=== PATIENT | female | born 1985 | race Caucasian/White ===

== ENCOUNTER 2018-04-25 03:44 | Emergency (ER) | payer MEDICAID, SELFPAY ==
[2018-04-25 03:53] VITALS: BP 151/82; PULSE 97; RESP 18; TEMP 36.4; O2SAT 99
[2018-04-25] MEDS: Prochlorperazine 10 MG/2 ML VIAL IVP (04:05)
--- NOTE | 2018-04-25 04:07 | ED.GENADUL_ITS ---
Disposition Clinical Impression: Abdominal pain Disposition: AGAINST MEDICAL ADVICE Condition: Stable Medical Decision Making - Medical Decision Making pt here with likely cyclic vomit vs cannabinoid hyperemesis, but will evaluate for acute pathology with lab work and imaging. while workup was trying to be done the patient decided she wanted to leave AMA. She was informed of risks of leaving without knowing exact cause of her symptoms and ruling out pathology. She has capacity to make her own decisions and understands risks of leaving including and becoming permanently disabled and would still like to leave. She was informed she can return if she changes her mind. She did not stay for any discharge paperwork - Differential Diagnosis cannabinoid hyperemesis, sbo, cyclic vomit History of Present Illness - General Chief complaint: Abd Prob Stated complaint: CALEX Time Seen by Provider: 04/25/18 03:58 Source: patient Mode of arrival: EMS Limitations: no limitations - History of Present Illness Initial comments: 32 yo female comes in with 1 day of general abdominal pain and n/v. 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 She has no specific area that she has pain. She has a soft non distended abodmen without guarding or rebound. Denies vaginal bleeding or d/c. MD Complaint: abd pain, n/v Onset/Timin -: days(s) Location: abdomen Radiation: non-radiation Improves with: none Worsens with: none Treatments Prior to Arrival: none - Related Data Methadone HCl 58 mg PO DAILY 02/22/18 Fluoxetine HCl [Prozac] 20 mg PO DAILY tab-cap 04/06/18 Trazodone HCl 50 mg PO DAILY tab-cap 04/06/18 Allergies Allergy/AdvReac Type Severity Reaction Status Date / Time No Known Drug Allergies Allergy none Unverified 04/06/18 15:13 Review of Systems Constitutional: denies: fever Respiratory: denies: shortness of breath Cardiovascular: denies: chest pain Gastrointestinal: abdominal pain, nausea, vomiting Musculoskeletal: denies: back pain Skin: denies: rash Neurological: denies: headache Comment: All other systems reviewed and negative Past Medical History - Past Medical History Medical history: GERD hep C, recurrent abdominal pain, narcotic dependency, PID, pyleonephritis 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 [employer] history: other (second , one , one live ) Family history: no significant family history - Social History Alcohol use: none Drug use: marijuana General Exam - General Limitations: no limitations General appearance: alert, in no apparent distress - Head Head exam: Present: atraumatic - Eye Eye exam: Present: normal apperance - ENT ENT exam: Present: mucous membranes moist - Neck Neck exam: Present: normal inspection - Respiratory Respiratory exam: Absent: respiratory distress - Cardiovascular Cardiovascular Exam: Present: regular rate - GI/Abdominal GI/Abdominal exam: Present: soft, tenderness. Absent: distended, guarding, rebound - Neurological Exam Neurological exam: Present: alert, oriented X3 - Psychiatric Psychiatric exam: Present: anxious. Absent: homicidal ideation, suicidal ideation - Skin Skin exam: Present: warm Course Vital Signs - 24 hr 04/25/18 03:53 Temperature 97.5 F L Pulse 97 H Respiratory 18 Rate Blood Pressure 151/82 Pulse Oximetry 99
[2018-04-25 04:09] LABS: Abs Immature Grans 0.06 k/cumm (0.0-0.09); Absolute Basophil Count 0.08 k/cumm (0.0-0.2); Basophils % 0.5; Eosinophils % 0.7; HCT 45.8 % (36.0-46.0); HGB 15.8 g/dL (12.0-15.5); Immature Grans % 0.4; Lymphocytes % 25.2; Mean Corp. HGB Concentration 34.5 g/dL (32.0-36.0); Mean Corpuscular Hemoglobin 30.9 pg (27.0-33.0); Mean Corpuscular Volume 89.6 fL (80-95); Mean Platelet Volume 9.6 fL (8.0-11.0); Monocytes % 6.3; Neutrophils % 66.9; Platelet Count 368 x1000/uL (130-400); RBC 5.11 m/cumm (4.00-5.20); RBC Distribution Width 14.2 % (11.7-14.6); White Blood Cell Count 16.48 k/cumm (4.4-10.8)
[2018-04-25 04:11] LABS: Absolute Eosinophil Count 0.12 k/cumm (0.0-0.7); Absolute Lymphocyte Count 4.15 k/cumm (1.2-3.4); Absolute Monocyte Count 1.04 k/cumm (0.11-0.7); Absolute Neutrophil Count 11.03 k/cumm (1.2-6.7)
--- NOTE | 2018-04-25 04:27 | NUR.NOTE ---
Nursing Note: patient IV attempted x [address] with contrast in right AC and right upper arm. Both attempts included patient moving arm after multiple verbal request to please stop moving that increased to If you move the vein will blow and we need this access for a scan of your abdomen. Dont move if you would like this test. Patient moved again and stated I just want ice chips. At this moment you cannot have ice chips as I am trying to get this IV. Patient IV on upper arm taped and flushed but was unsuccessful. Patient states she wanted to be discharged, and got up went to ice and water machine and took a large drink of water with ice. Patient signed AMA paperwork and was told that you could possibly if you leave, and patient signed and walked out.
[2018-04-25 04:30] LABS: ALT 24 U/L (12-78); AST 20 U/L (15-37); Albumin 4.4 g/dL (3.4-5.0); Alkaline Phosphatase 39 U/L (46-116); Anion Gap 19.4 mmol/L (3-11); BUN 14 mg/dL (7-18); Bilirubin, Total 0.8 mg/dL (0.2-1.0); CO2 18.6 mmol/L (21.0-32.0); CREATININE 0.94 mg/dL (0.55-1.02); Calcium 9.2 mg/dL (8.5-10.1); Chloride 99 mmol/L (98-107); Glucose 82 mg/dL (70-100); Potassium 3.6 mmol/L (3.5-5.1); Sodium 137 mmol/L (136-145); Total Protein 8.7 g/dL (6.4-8.2)
[2018-04-25 04:37] LABS: Lipase 79 U/L (73-393)
== END 2018-04-25 04:27 | disposition left against medical advice (07) ==
LOC: ER 08-14 05:49
PROVIDERS: Emergency Provider Emergency Medicine; PCP Nurse Practitioner Family
DX: R10.84 Generalized abdominal pain (principal); R11.2 Nausea with vomiting, unspecified; Z53.29 Procedure and treatment not carried out because of patient's decision for other reasons
CPT/HCPCS: 36415; 80053; 83690; 96374; 99284; 83735; 85025; 99283; J0780

== ENCOUNTER 2018-06-14 10:57 | Emergency (ER) | payer MEDICAID, SELFPAY ==
[2018-06-14 11:00] VITALS: BP 160/92; PULSE 75; RESP 16; TEMP 37; O2SAT 100
[2018-06-14 11:23] LABS: Bilirubin Moderate (Negative); Blood Trace-intact (Negative); Clarity Sl Cloudy; Glucose Negative (Negative); Ketones >=160 mg/dL (Negative); Leukocyte Esterase Small (Negative); Nitrite Negative (Negative); pH 8.5 (5-8)
[2018-06-14 11:43] LABS: Bacteria Few HPF (Negative); Epithelial Cells Moderate HPF (Negative); RBC 0-2 (0-2); WBC 20-50 HPF (0-5)
[2018-06-14 11:44] LABS: C & S Indicated? No/Sq. Contamination; Casts Negative LPF (Negative); Mucus Moderate (Negative)
--- NOTE | 2018-06-14 12:17 | DI.CT_ITS ---
SYMPTOMS/DIAGNOSIS: DIFFUSE ABD PAIN, WORSE IN RT LOWER QUAD CT EXAMINATION OF THE ABDOMEN AND PELVIS: The study was carried out with intravenous injection of 100 cc's of Omnipaque 350. The lung bases are unremarkable. The liver is intact. The gallbladder is unremarkable. The pancreas, spleen, kidneys and adrenals are normal. There is no evidence of bowel obstruction. The appendix is not seen but there is nothing to suggest an acute appendix. The evaluation is difficult because of a paucity of mesenteric fat. The uterus is unremarkable. A small right ovarian cyst is demonstrated and there may be a very small quantity of free fluid in the pelvis. The bladder wall is thickened likely on the basis of incomplete distention. There is no evidence of a hernia. There is no evidence of an aortic aneurysm. The bony structures are unremarkable. SUMMARY: A small right ovarian cyst is demonstrated and there may be a very small quantity of free fluid in the pelvis. There is nothing to suggest an acute appendix, however, the evaluation is difficult due to a paucity of mesenteric fat.
[2018-06-14] MEDS: Normal Saline 1,000 ML 1000 ML IV (12:20)
[2018-06-14] MEDS: Prochlorperazine 10 MG/2 ML VIAL IVP (12:20)
--- NOTE | 2018-06-14 12:20 | W.ED.GENAD ---
Discharge Plan Disposition Patient Disposition: HOME Condition: Improving Discharge Details Chief Complaint: Abd Prob Clinical Impression: Vomiting, Abdominal pain, Ovarian cyst Primary Care Provider: Argentina Rubalcava ED Provider: Jodie Feldman Home Meds and New Rx's Prescriptions: New prochlorperazine maleate [Compazine] 10 mg tablet 10 mg PO Q8H PRN (Reason: nausea and vomiting) Qty: 7 RF: 0 No Action methadone 10 MG tablet 58 mg PO DAILY RF: 0 Discharge Instructions Instructions: Ovarian Cyst (ED), Acute Nausea and Vomiting (ED), Abdominal Pain (ED) Additional Instructions: Alternate Tylenol and Motrin as needed and directed for pain. Take the Compazine as needed and directed for nausea or vomiting. Drink plenty of fluids and get plenty of rest. Follow-up with a primary care doctor in 1 week for reevaluation and return to the emergency department any worsening or new concerning symptoms. Discharge Data Discharge Date/Time-TO BE ENTERED AT DEPARTURE: 06/14/18 18:15 Discharge Physician: Jodie Feldman Medical Decision Making 32-year-old female with a known history of narcotic abuse on methadone, anxiety, depression who presents with diffuse abdominal pain and vomiting since this morning. Denies diarrhea, fever, urinary symptoms, vaginal discharge, recent travel, recent antibiotics. Normal heart rate, oxygen saturation, afebrile. Patient appears uncomfortable. Tenderness to palpation mainly in lower abdomen and worse in right lower quadrant. No rebound, psoas sign, obturator sign. Differential diagnosis includes gastroenteritis, cholecystitis, appendicitis, ovarian cyst, ovarian torsion, UTI, etc. Will place an IV, bolus IV fluids, labs, urinalysis, urine and CT abdomen to rule out acute abdominal process. Interaction of Zofran with methadone. Will give a dose of Compazine and Toradol. 1330 -- d/w radiologist Dr. Rock -there is a right ovarian cyst noted. He does not see the appendix but there are no acute findings in the area. We will send for pelvic US. Labs reviewed and note a white blood cell count of 12.5. Anion gap 13.2. Urinalysis notes 20-50 WBCs, small leukocyte esterase, few bacteria, negative nitrate and moderate epithelial cells with positive ketones, likely contamination. Findings appear consistent likely with mild dehydration. test negative. 1500 -- d/w radiologist Dr. Rock -right ovarian cyst noted but no ovarian torsion or free fluid. 1600 --patient states she feels much better and is requesting to go home. Discussed pelvic exam and declines. We will send home with prescription for compazine. Discussed with patient that her symptoms may be gastritis, gastroenteritis and that she may develop diarrhea. Also discussed that as we were unable to view the appendix on CT although no obvious acute process, she could be developing an early appendicitis and that she should return immediately to the emergency department if she has any acute worsening of symptoms. She is instructed to drink plenty of fluids and eat a bland diet. She was instructed to follow-up with her primary care doctor in 1 week and return here immediately if worse. HPI General Mode of arrival: ambulatory. Date/Time Provider Initiated Documentation: 06/14/18 11:21. Limitations to Documentation: no limitations. Information obtained by: patient. HPI Narrative: 32-year-old female with a known history of narcotic abuse on methadone, anxiety, depression who presents with diffuse abdominal pain and vomiting since this morning. States the abdominal pain is sharp, intermittent, and diffuse but worse in lower abdomen. States she has vomited approximately 12x and is bile. Last vomited just prior to arrival. She last ate yesterday. Denies diarrhea, fever, urinary symptoms, vaginal discharge, recent travel, recent antibiotics. Past medical history: Anxiety, depression Surgical history: Umbilical hernia, LEEP Social history: Smokes tobacco, denies alcohol, previous history of narcotic/heroin use Medications: Methadone Allergies: None PCP: Dr. Rubalcava Related Data Home Medications Medication Instructions Recorded Confirmed methadone 58 mg PO DAILY 02/22/18 06/14/18 prochlorperazine maleate 10 mg PO Q8H PRN #7 tab 06/14/18 [Compazine] Previous Rx's Medication Instructions Recorded prochlorperazine maleate 10 mg PO Q8H PRN #7 tab 06/14/18 [Compazine] Allergies Allergy/AdvReac Type Severity Reaction Status Date / Time No Known Drug Allergies Allergy none Unverified 06/14/18 11:03 General Stated Complaint: Abd Prob ALONA: 3 Review of Systems Review of Systems All systems reviewed & are unremarkable except as noted in HPI and below Constitutional Denies chills, Denies excessive sweating, Denies fatigue, Denies fever(s), Denies weakness and Denies weight loss Eyes Reports system reviewed and no additional complaints, except as docu and Denies blurry vision ENT Denies vertigo, Denies dizziness, Denies otalgia, Denies nasal congestion, Denies sore throat and Denies throat swelling Cardiovascular Denies chest pain, Denies syncope, Denies rapid heart rate and Denies dyspnea Respiratory Denies dyspnea Gastrointestinal Reports abdominal pain, Denies diarrhea and Reports vomiting Genitourinary Denies hematuria, Denies dysuria and Denies flank pain Musculoskeletal Denies back pain and Denies joint swelling Integumentary/Breasts Denies lesions and Denies rash Neurologic Denies behavioral changes, Denies confusion, Denies vertigo, Denies dizziness, Denies syncope and Denies weakness Psychiatric Denies behavioral changes, Denies confusion and Denies depression Endocrine Denies excessive sweating and Denies fatigue Hematologic/Lymphatic Denies easy bruising and Denies lymphadenopathy Allergic/Immunologic Denies throat swelling [facility] Medical History Anxiety and depression Cervical dysplasia Glucose intolerance of Hepatitis C antibody test positive Heroin abuse History of complication History of pyelonephritis (~2014) Tobacco use Social History Smoking/Tobacco Use Status: Current every day Surgical History Cervical Conization/LEEP Repair of umbilical hernia Exam Const General: cooperative, healthy appearing and in distress (mild, laying flat on stretcher, restless) Orientation: alert, awake and oriented x3 HENMT Head: normal to inspection Ears: hearing grossly normal bilaterally and external ears normal General nose exam: external nose normal Face and sinus: normal facial exam Mouth: oral mucosae normal Throat: posterior oropharynx normal Eyes General: appearance normal, both eyes and all related structures Eyelids: eyelids normal Pupils: PERRL EOM: EOM intact bilaterally Neck Neck: normal visual inspection Lymphatic: no lymphadenopathy noted Chest Chest: normal inspection of the chest Resp Effort & Inspection: normal respiratory effort and able to speak in complete sentences Auscultation: clear to auscultation bilaterally Cardio Rate: regular rate Rhythm: regular rhythm GI Inspection: normal to inspection Palpation: soft, not firm, no guarding, no hepatosplenomegaly, no masses, not rigid and tender (diffuse, worse in lower abdomen and in RLQ) at [facility] [place] Auscultation: normal bowel sounds Back/Spine/Pelvis Back: no CVA tenderness Skin General skin exam: no rashes or lesions noted Neuro General: alert and awake Cognition: normal cognition Speech: speech normal Gait: normal gait Motor: muscle tone normal throughout Sensory Exam: no sensory deficits noted Extrem General: normal to inspection, full ROM, normal capillary refill and no edema Psych Appearance: grossly normal Mental Status: mental status grossly normal Speech and Movement: speech and movement normal Affect: normal affect Thought Process: normal Course Vital Signs Temperature 98.6 F 06/14/18 11:00 Pulse 75 06/14/18 11:00 Respiratory Rate 16 06/14/18 11:00 Blood Pressure 160/92 H 06/14/18 11:00 Pulse Oximetry 100 06/14/18 11:00 Temperature 98.6 F 06/14/18 11:00 Temperature Source Temporal Artery Scan 06/14/18 11:00 Pulse 75 06/14/18 11:00 Respiratory Rate 16 06/14/18 11:00 Blood Pressure 160/92 H 06/14/18 11:00 Pulse Oximetry 100 06/14/18 11:00 Oxygen Delivery Method Room Air 06/14/18 11:00 Oxygen Flow Rate 0 06/14/18 11:00 Pain Level 10 06/14/18 11:00 Lab/Test Results Lab/Test Results: Laboratory Tests Range/Units 06/14/18 10:10 Urine Color (Yellow) Yellow Urine Clarity Sl cloudy Urine pH (5-8) 8.5 H Ur Specific [place] (1.005-1.025) 1.020 Urine Protein (Negative) mg/dL 100 H Urine Ketones (Negative) mg/dL >=160 Urine Blood (Negative) Trace-intact H Urine Nitrite (Negative) Negative Urine Bilirubin (Negative) Moderate H Urine Urobilinogen (Up TO 0.2) EU/dL 1.0 H Ur Leukocyte Esterase (Negative) Small H Urine RBC (0-2) 0-2 Urine WBC (0-5) HPF 20-50 Ur Epithelial Cells (Negative) HPF Moderate Urine Crystals (Negative) HPF Urine Bacteria (Negative) HPF Few Urine Casts (Negative) LPF Negative Urine Mucus (Negative) Moderate Ur Culture Indicated? No/sq. contamination Urine Glucose (Negative) mg/dL Negative
--- NOTE | 2018-06-14 12:24 | ED.GENADUL_ITS ---
Discharge Plan Disposition Patient Disposition: HOME Condition: Improving Discharge Details Chief Complaint: Abd Prob Clinical Impression: Vomiting, Abdominal pain, Ovarian cyst Primary Care Provider: Argentina Rubalcava ED Provider: Jodie Feldman Home Meds and New Rx's Prescriptions: New prochlorperazine maleate [Compazine] 10 mg tablet 10 mg PO Q8H PRN (Reason: nausea and vomiting) Qty: 7 RF: 0 No Action methadone 10 MG tablet 58 mg PO DAILY RF: 0 Discharge Instructions Instructions: Ovarian Cyst (ED), Acute Nausea and Vomiting (ED), Abdominal Pain (ED) Additional Instructions: Alternate Tylenol and Motrin as needed and directed for pain. Take the Compazine as needed and directed for nausea or vomiting. Drink plenty of fluids and get plenty of rest. Follow-up with a primary care doctor in 1 week for reevaluation and return to the emergency department any worsening or new concerning symptoms. Discharge Data Discharge Date/Time-TO BE ENTERED AT DEPARTURE: 06/14/18 18:15 Discharge Physician: Jodie Feldman Medical Decision Making 32-year-old female with a known history of narcotic abuse on methadone, anxiety , depression who presents with diffuse abdominal pain and vomiting since this morning. Denies diarrhea, fever, urinary symptoms, vaginal discharge, recent travel, recent antibiotics. Normal heart rate, oxygen saturation, afebrile. Patient appears uncomfortable. Tenderness to palpation mainly in lower abdomen and worse in right lower quadrant. No rebound, psoas sign, obturator sign. Differential diagnosis includes gastroenteritis, cholecystitis, appendicitis, ovarian cyst, ovarian torsion, UTI, etc. Will place an IV, bolus IV fluids, labs, urinalysis, urine and CT abdomen to rule out acute abdominal process. Interaction of Zofran with methadone. Will give a dose of Compazine and Toradol. 1330 -- d/w radiologist Dr. Rock -there is a right ovarian cyst noted. He does not see the appendix but there are no acute findings in the area. We will send for pelvic US. Labs reviewed and note a white blood cell count of 12.5. Anion gap 13.2. Urinalysis notes 20-50 WBCs, small leukocyte esterase, few bacteria, negative nitrate and moderate epithelial cells with positive ketones, likely contamination. Findings appear consistent likely with mild dehydration. test negative. 1500 -- d/w radiologist Dr. Rock -right ovarian cyst noted but no ovarian torsion or free fluid. 1600 --patient states she feels much better and is requesting to go home. Discussed pelvic exam and declines. We will send home with prescription for compazine. Discussed with patient that her symptoms may be gastritis, gastroenteritis and that she may develop diarrhea. Also discussed that as we were unable to view the appendix on CT although no obvious acute process, she could be developing an early appendicitis and that she should return immediately to the emergency department if she has any acute worsening of symptoms. She is instructed to drink plenty of fluids and eat a bland diet. She was instructed to follow-up with her primary care doctor in 1 week and return here immediately if worse. HPI General Mode of arrival: ambulatory . Date/Time Provider Initiated Documentation: 06/14/18 11:21 . Limitations to Documentation: no limitations . Information obtained by: patient . HPI Narrative: 32-year-old female with a known history of narcotic abuse on methadone, anxiety , depression who presents with diffuse abdominal pain and vomiting since this morning. States the abdominal pain is sharp, intermittent, and diffuse but worse in lower abdomen. States she has vomited approximately 12x and is bile. Last vomited just prior to arrival. She last ate yesterday. Denies diarrhea, fever, urinary symptoms, vaginal discharge, recent travel, recent antibiotics. Past medical history: Anxiety, depression Surgical history: Umbilical hernia, LEEP Social history: Smokes tobacco, denies alcohol, previous history of narcotic/ heroin use Medications: Methadone Allergies: None PCP: Dr. Rubalcava Related Data Home Medications Medication Instructions Recorded Confirmed methadone 58 mg PO DAILY 02/22/18 06/14/18 prochlorperazine maleate 10 mg PO Q8H PRN #7 tab 06/14/18 [Compazine] Previous Rx's Medication Instructions Recorded prochlorperazine maleate 10 mg PO Q8H PRN #7 tab 06/14/18 [Compazine] Allergies Allergy/AdvReac Type Severity Reaction Status Date / Time No Known Drug Allergies Allergy none Unverified 06/14/18 11:03 General Stated Complaint: Abd Prob ALONA: 3 Review of Systems Review of Systems All systems reviewed & are unremarkable except as noted in HPI and below Constitutional Denies chills, Denies excessive sweating, Denies fatigue, Denies fever(s), Denies weakness and Denies weight loss Eyes Reports system reviewed and no additional complaints, except as docu and Denies blurry vision ENT Denies vertigo, Denies dizziness, Denies otalgia, Denies nasal congestion, Denies sore throat and Denies throat swelling Cardiovascular Denies chest pain, Denies syncope, Denies rapid heart rate and Denies dyspnea Respiratory Denies dyspnea Gastrointestinal Reports abdominal pain, Denies diarrhea and Reports vomiting Genitourinary Denies hematuria, Denies dysuria and Denies flank pain Musculoskeletal Denies back pain and Denies joint swelling Integumentary/Breasts Denies lesions and Denies rash Neurologic Denies behavioral changes, Denies confusion, Denies vertigo, Denies dizziness, Denies syncope and Denies weakness Psychiatric Denies behavioral changes, Denies confusion and Denies depression Endocrine Denies excessive sweating and Denies fatigue Hematologic/Lymphatic Denies easy bruising and Denies lymphadenopathy Allergic/Immunologic Denies throat swelling [facility] Medical History Anxiety and depression Cervical dysplasia Glucose intolerance of Hepatitis C antibody test positive Heroin abuse History of complication History of pyelonephritis (~2014) Tobacco use Social History Smoking/Tobacco Use Status: Current every day Surgical History Cervical Conization/LEEP Repair of umbilical hernia Exam Const General: cooperative, healthy appearing and in distress (mild, laying flat on stretcher, restless) Orientation: alert, awake and oriented x3 HENMT Head: normal to inspection Ears: hearing grossly normal bilaterally and external ears normal General nose exam: external nose normal Face and sinus: normal facial exam Mouth: oral mucosae normal Throat: posterior oropharynx normal Eyes General: appearance normal, both eyes and all related structures Eyelids: eyelids normal Pupils: PERRL EOM: EOM intact bilaterally Neck Neck: normal visual inspection Lymphatic: no lymphadenopathy noted Chest Chest: normal inspection of the chest Resp Effort & Inspection: normal respiratory effort and able to speak in complete sentences Auscultation: clear to auscultation bilaterally Cardio Rate: regular rate Rhythm: regular rhythm GI Inspection: normal to inspection Palpation: soft, not firm, no guarding, no hepatosplenomegaly, no masses, not rigid and tender (diffuse, worse in lower abdomen and in RLQ) at [facility] [place] Auscultation: normal bowel sounds Back/Spine/Pelvis Back: no CVA tenderness Skin General skin exam: no rashes or lesions noted Neuro General: alert and awake Cognition: normal cognition Speech: speech normal Gait: normal gait Motor: muscle tone normal throughout Sensory Exam: no sensory deficits noted Extrem General: normal to inspection, full ROM, normal capillary refill and no edema Psych Appearance: grossly normal Mental Status: mental status grossly normal Speech and Movement: speech and movement normal Affect: normal affect Thought Process: normal Course Vital Signs Temperature 98.6 F 06/14/18 11:00 Pulse 75 06/14/18 11:00 Respiratory Rate 16 06/14/18 11:00 Blood Pressure 160/92 H 06/14/18 11:00 Pulse Oximetry 100 06/14/18 11:00 Temperature 98.6 F 06/14/18 11:00 Temperature Source Temporal Artery Scan 06/14/18 11:00 Pulse 75 06/14/18 11:00 Respiratory Rate 16 06/14/18 11:00 Blood Pressure 160/92 H 06/14/18 11:00 Pulse Oximetry 100 06/14/18 11:00 Oxygen Delivery Method Room Air 06/14/18 11:00 Oxygen Flow Rate 0 06/14/18 11:00 Pain Level 10 06/14/18 11:00 Lab/Test Results Lab/Test Results: Laboratory Tests Range/Units 06/14/18 10:10 Urine Color (Yellow) Yellow Urine Clarity Sl cloudy Urine pH (5-8) 8.5 H Ur Specific [place] (1.005-1.025) 1.020 Urine Protein (Negative) mg/dL 100 H Urine Ketones (Negative) mg/dL >=160 Urine Blood (Negative) Trace-intact H Urine Nitrite (Negative) Negative Urine Bilirubin (Negative) Moderate H Urine Urobilinogen (Up TO 0.2) EU/dL 1.0 H Ur Leukocyte Esterase (Negative) Small H Urine RBC (0-2) 0-2 Urine WBC (0-5) HPF 20-50 Ur Epithelial Cells (Negative) HPF Moderate Urine Crystals (Negative) HPF Urine Bacteria (Negative) HPF Few Urine Casts (Negative) LPF Negative Urine Mucus (Negative) Moderate Ur Culture Indicated? No/sq. contamination Urine Glucose (Negative) mg/dL Negative
[2018-06-14] MEDS: Ketorolac 30 MG/ML VIAL IVP (12:30)
[2018-06-14 12:52] LABS: HCT 41.7 % (36.0-46.0); HGB 13.9 g/dL (12.0-15.5); Mean Corp. HGB Concentration 33.3 g/dL (32.0-36.0); Mean Corpuscular Hemoglobin 29.7 pg (27.0-33.0); Mean Corpuscular Volume 89.1 fL (80-95); Mean Platelet Volume 9.9 fL (8.0-11.0); Platelet Count 312 x1000/uL (130-400); RBC 4.68 m/cumm (4.00-5.20); RBC Distribution Width 12.9 % (11.7-14.6); White Blood Cell Count 12.58 k/cumm (4.4-10.8)
[2018-06-14 13:04] LABS: ALT 22 U/L (12-78); AST 17 U/L (15-37); Albumin 4.1 g/dL (3.4-5.0); Alkaline Phosphatase 36 U/L (46-116); Anion Gap 13.2 mmol/L (3-11); BUN 12 mg/dL (7-18); Bilirubin, Total 0.4 mg/dL (0.2-1.0); CO2 22.8 mmol/L (21.0-32.0); Calcium 8.8 mg/dL (8.5-10.1); Chloride 103 mmol/L (98-107); Glucose 140 mg/dL (70-100); Lipase 66 U/L (73-393); Potassium 3.5 mmol/L (3.5-5.1); Sodium 139 mmol/L (136-145); Total Protein 8.3 g/dL (6.4-8.2)
--- NOTE | 2018-06-14 13:52 | DI.US_ITS ---
SYMPTOMS/DIAGNOSIS: RIGHT OVARIAN CYST, ? TORSION VERSUS OTHER ACUTE PROCESS PELVIC ULTRASOUND: The uterus is 5.7 cm in length, 3.1 cm in height and 3.8 cm in width with an endometrial stripe thickness of 1.7 mm. The right ovary measures 3.5 x 1.9 x 2.7 cm and contains a 1.5 x 1.0 x 1.0 cm cyst. The left ovary is 4.3 cm in length and 2 cm in height. The transverse diameter was not obtained. There is no evidence of pelvic free fluid. The kidneys are unremarkable. SUMMARY: Aside from a 1.5 x 1.4 x 1.0 cm simple right ovarian cyst, the examination is unremarkable.
[2018-06-14 16:30] VITALS: BP 139/82; PULSE 72; RESP 16; TEMP 37; O2SAT 98
== END 2018-06-14 18:15 | disposition home or self-care (01) ==
PROVIDERS: Emergency Provider Physician Assistant; PCP Nurse Practitioner Family
DX: R10.84 Generalized abdominal pain (principal); R11.2 Nausea with vomiting, unspecified; N83.201 Unspecified ovarian cyst, right side
CPT/HCPCS: 36415; 80053; 81025; 83690; 85027; 96361; 96374; 96375; 99285; 74177; 76830; 76856; 81003; 81015; J0780; J1885

== ENCOUNTER 2018-10-12 14:47 | Outpatient (REF) | payer MEDICAID, SELFPAY ==
[2018-10-15 14:03] LABS: Chlamydia Result Negative; GC Result Positive; Specimen Description CERVIX
== END 2018-10-12 15:07 ==
LOC: LBN 14:47
PROVIDERS: PCP Nurse Practitioner Family; Visit Provider Nurse Practitioner Women's Health
DX: R30.0 Dysuria (principal); Z11.3 Encounter for screening for infections with a predominantly sexual mode of transmission
CPT/HCPCS: 87077; 87491; 87591; 87086; 87186

== ENCOUNTER 2019-11-03 13:15 | Emergency (ER) | payer MEDICAID, SELFPAY ==
[2019-11-03] VITALS (66 sets, daily range): BP systolic 97–146; BP diastolic 65–109; PULSE 63–97; RESP 9–24; TEMP 36.7; O2SAT 90–100
[2019-11-03] MEDS: LORazepam 2 MG/ML VIAL (13:30)
[2019-11-03] MEDS: Lidocaine 4% Cream 5 GM TUBE TP (13:30)
--- NOTE | 2019-11-03 13:59 | ED.GENADUL_ITS ---
Discharge Plan Disposition Patient Disposition: HOME Condition: Serious Discharge Details Chief Complaint: Chest Pain Clinical Impression: Chest pain, Cocaine abuse Primary Care Provider: Argentina Rubalcava ED Provider: Rob Tate Home Meds and New Rx's Prescriptions: Continued methadone 10 mg tablet 80 mg PO DAILY RF: 0 Discharge Instructions Instructions: Chest Pain (ED), Cocaine Abuse (ED) Additional Instructions: Please follow-up with your doctor. Please contact your primary care physician to arrange follow-up. Return to the ER for any worsening or new concerning symptoms. Referrals: Argentina Rubalcava [Primary Care Provider] - Discharge Data Discharge Date/Time-TO BE ENTERED AT DEPARTURE: 11/03/19 19:35 Medical Decision Making 15:40 --33-year-old female that was seen immediately on arrival. Patient arrives with EMS and in law enforcement custody. Patient used cocaine and methadone today. She is intermittently anxious and then intermittently obtunded. Suspect symptoms secondary to sympathomimetic and opioid intoxication. Patient did use cocaine and has chest pain. Consider ACS. Screening ECG was reviewed and interpreted by me: Normal sinus rhythm, 72 bpm, normal axis, [address] elevation noted V1 and less than [address] elevation noted V2. Initial troponin negative. Patient had difficult IV access. I was able to obtain peripheral IV left upper arm with ultrasound guidance. Patient was given IV fluid bolus. She was given Ativan 1 mg IM for agitation. Patient is not currently complaining of chest pain. Plan at this time is to monitor closely and obtain serial enzymes and EKG. --Initial troponin negative. --Patient reassessed multiple times remains comfortable. Chest x-ray was reviewed and interpreted by radiology: No acute process. --Repeat ECG was reviewed and interpreted by me: Sinus rhythm 73 bpm, no significant changes from prior ECG. No STEMI. Delta troponin at 3 hours negative. 19:12 --patient reassessed and significant improvement. Ambulating without any difficulty. She does not have any chest pain. Plan for discharge with outpatient follow-up. Patient remains in on enforcement custody. Disposition decision was made weighing the risks and benefits of hospitalization versus outpatient treatment, the risk for further decompensation, and the patient's wishes. The patient was stable and requested discharge. Prior to discharge, my usual and customary return precautions were reviewed with the patient - this included follow-up instructions and reason to return to the emergency department if condition worsens, does not improve as expected, or other new concerns arise. HPI General Mode of arrival: ambulatory . Date/Time Provider Initiated Documentation: 11/03/19 13:57 . Limitations to Documentation: no limitations . Information obtained by: patient and EMS . HPI Narrative: 33-year-old female here with chest pain. Patient arrives in law enforcement custody. Patient apparently used methadone and snorted cocaine today. She was arrested by law enforcement for shoplifting. She is now complaining of chest pain. Pain is retrosternal and severe. EMS note that she is intermittently obtunded and intermittently agitated and in discomfort. History and review of systems is limited secondary to altered mental status. Related Data Home Medications Medication Instructions Recorded Confirmed methadone 10 mg tablet 80 mg PO DAILY tab 09/02/19 09/02/19 Allergies Allergy/AdvReac Type Severity Reaction Status Date / Time No Known Drug Allergies Allergy none Verified 09/02/19 11:09 General Stated Complaint: Chest Pain ALONA: 2 Review of Systems Unobtainable due to mental status [facility] Medical History Anxiety and depression Cervical dysplasia s/p LEEP 2013. 2015 Nl Pap/HPV. Glucose intolerance of 2016. Pt did not test CBGs or follow dietary counseling during . 2hr GTT____ Hepatitis C antibody test positive 2015. Undetectable viral load. Heroin abuse 12/2014 currently on Methadone maintenance. History of complication 2006 IOL 34w EGA @ [facility] for IUGR. 2015 . IOL @33w for severe preeclampsia. [facility] History of pyelonephritis (~2014) during 2nd . chronic suppression during . Tobacco use Surgical History Cervical Conization/LEEP LEEP. Repair of umbilical hernia in childhood Social History Smoking/Tobacco Use Status: Current every day Drug use: Daily Details: Patient unable to answer at this time. Do you feel safe in your relationship?: Yes Female Reproductive History Menstrual control method: none History History 3 Para 2 Hx # Term Pregnancies Multiple births Hx # Pregnancies Ectopic pregnancies AB induced Hx Number of Living Children AB spontaneous Exam Const General: acute distress moderate, anxious and intoxicated appearing HENMT Head: normocephalic and atraumatic Mouth: moist mucous membranes Eyes Conjunctivae: normal conjunctivae Sclera: normal sclerae Pupils: PERRL (3 mm) Neck Neck: trachea midline and supple Resp Auscultation: clear to auscultation bilaterally, no rales, no rhonchi and no wheezes Cardio Jugular venous pressure: no JVD Rate: regular rate and not tachycardic Rhythm: regular rhythm GI Palpation: soft, not firm, no guarding, no masses, not rigid and nontender Skin General skin exam: no rashes or lesions noted Neuro General: alert, awake, tone normal and moves all extremities Extrem General: no edema Psych Affect: anxious affect Course Vital Signs Vital signs: Vital Signs Temperature 36.7 C 11/03/19 13:18 Pulse 86 11/03/19 13:18 Blood Pressure 146/109 H 11/03/19 13:18 Pulse Oximetry 98 11/03/19 13:18 Temperature 36.7 C 11/03/19 13:18 Temperature Source Skin 11/03/19 13:18 Pulse 86 11/03/19 13:18 Respiratory Effort Non-Labored 11/03/19 13:47 Respiratory Depth Shallow 11/03/19 13:47 Respiratory Pattern Bradypnea 11/03/19 13:47 Blood Pressure 146/109 H 11/03/19 13:18 Blood Pressure Position Supine 11/03/19 13:18 Pulse Oximetry 98 11/03/19 13:18 Oxygen Delivery Method Room Air 11/03/19 13:18 Oxygen Flow Rate 0 11/03/19 13:18
[2019-11-03] MEDS: Normal Saline 1,000 ML 1000 ML IV (14:01)
[2019-11-03 14:09] LABS: Abs Immature Grans 0.02 k/cumm (0.0-0.09); Absolute Basophil Count 0.07 k/cumm (0.0-0.2); Absolute Eosinophil Count 0.26 k/cumm (0.0-0.7); Absolute Monocyte Count 1.16 k/cumm (0.11-0.7); Basophils % 0.5; Eosinophils % 1.8; HCT 42.3 % (36.0-46.0); HGB 14.2 g/dL (12.0-15.5); Immature Grans % 0.1 %; Lymphocytes % 17.4; Mean Corp. HGB Concentration 33.6 g/dL (32.0-36.0); Mean Corpuscular Hemoglobin 31.1 pg (27.0-33.0); Mean Corpuscular Volume 92.6 fL (80-95); Mean Platelet Volume 9.7 fL (8.0-11.0); Neutrophils % 72.2; Platelet Count 318 x1000/uL (130-400); RBC 4.57 m/cumm (4.00-5.20); RBC Distribution Width 12.6 % (11.7-14.6); White Blood Cell Count 14.52 k/cumm (4.4-10.8)
--- NOTE | 2019-11-03 14:09 | DI.RAD_ITS ---
EXAM: XR PORTABLE CHEST AP CLINICAL HISTORY: chest pain. TECHNIQUE: 2D digital imaging was performed. COMPARISON: ABD FLAT UPRIGHT PA CHEST from 08/03/2015 FINDINGS: LUNGS: Clear. No pleural abnormality seen. HEART: Normal. MEDIASTINUM: Normal. OTHER FINDINGS: None. IMPRESSION: No acute pulmonary findings.
[2019-11-03 14:11] LABS: Absolute Lymphocyte Count 2.53 k/cumm (1.2-3.4); Absolute Neutrophil Count 10.48 k/cumm (1.2-6.7)
[2019-11-03 14:25] LABS: ALT 17 U/L (14-59); AST 22 U/L (15-37); Albumin 3.8 g/dL (3.4-5.0); Alkaline Phosphatase 26 U/L (46-116); Anion Gap 8.2 mmol/L (3-11); BUN 10 mg/dL (7-18); Bilirubin, Total 0.2 mg/dL (0.2-1.0); CO2 28.8 mmol/L (21.0-32.0); CREATININE 0.76 mg/dL (0.55-1.02); Calcium 8.7 mg/dL (8.5-10.1); Chloride 106 mmol/L (98-107); Creatine Kinase 152 U/L (26-192); Glucose 83 mg/dL (74-106); Potassium 4.2 mmol/L (3.5-5.1); Sodium 143 mmol/L (136-145); Total Protein 7.1 g/dL (6.4-8.2); Troponin I < 0.05 ng/Ml (<0.06)
--- NOTE | 2019-11-03 14:42 | DI.VRAD_ITS ---
PROCEDURE INFORMATION: Exam: XR Chest, 1 View Exam date and time: 11/03/2019 2:05 PM Age: 33 years old Clinical indication: Chest pain; Type not specified TECHNIQUE: Imaging protocol: XR of the chest Views: 1 view. COMPARISON: CR ABD FLAT UPRIGHT PA CHEST 08/03/2015 11:42 AM FINDINGS: Lungs: Unremarkable. No consolidation. Pleural space: Unremarkable. No pleural effusion. No pneumothorax. Heart/Mediastinum: Unremarkable. No cardiomegaly. Bones/joints: Unremarkable. Other findings: Overlying EKG wires IMPRESSION: No acute process Dictated and Authenticated by: Arleen Quiles MD. Ordering:PIPO Rivas MD
[2019-11-03 15:37] LABS: HCG Qual (Serum) Negative
[2019-11-03 17:30] LABS: Troponin I < 0.05 ng/Ml (<0.06)
[2019-11-03 19:33] LABS: *AMPHETAMINES SCREEN URINE Negative (Negative); *BARBITURATES SCREEN URINE Negative (Negative); *BENZODIAZEPINES SCREEN URINE Negative (Negative); Cannabinoids THC Negative (Negative); Cocaine Screen,Urine POSITIVE (Negative); METHADONE URINE SCREEN POSITIVE (Negative); OPIATES URINE SCREEN Negative (Negative)
[2019-11-03 19:35] LABS: Tricyclic Antidepressants Negative (Negative)
== END 2019-11-03 19:35 | disposition home or self-care (01) ==
PROVIDERS: Emergency Provider Student in an Organized Health Care Education/Training Program; PCP Nurse Practitioner Family
DX: F14.120 Cocaine abuse with intoxication, uncomplicated (principal); R07.9 Chest pain, unspecified; F11.20 Opioid dependence, uncomplicated
CPT/HCPCS: 36415; 80053; 80307; 82550; 93005; 96361; 96374; 99285; 71045; 84484; 84703; 85025; 93010; J2060

== ENCOUNTER 2020-11-26 14:40 | Outpatient (REF) | payer MEDICAID, SELFPAY ==
[2020-11-26 16:35] LABS: HCT 44.9 % (36.0-46.0); HGB 14.5 g/dL (11.2-15.7); MCH 29.8 pg (27.0-33.0); MCHC 32.3 % (32.0-36.0); MCV 92.4 fL (80-95); MPV 9.6 fL (8.0-11.0); Platelet Count 348 10^3/uL (130-400); RBC 4.86 10^6/uL (3.93-5.22); RDW 12.7 % (11.7-14.6); RDW-SD 43.7 fL; WBC 12.48 10^3/uL (4.4-10.8)
[2020-11-26 17:06] LABS: ALT 38 U/L (14-59); AST 22 U/L (15-37); Albumin 3.7 g/dL (3.4-5.0); Alkaline Phosphatase 44 U/L (46-116); Anion Gap 9.7 mmol/L (3-11); BUN 12 mg/dL (7-18); Bilirubin, Total 0.2 mg/dL (0.2-1.0); CO2 28.3 mmol/L (21.0-32.0); CREATININE 0.7 mg/dL (0.55-1.02); Calcium 9.1 mg/dL (8.5-10.1); Calculated LDL 87 mg/dL (<100); Chloride 103 mmol/L (98-107); Cholesterol 154 mg/dL (<200); Glucose 95 mg/dL (74-106); HDL Cholesterol 51 mg/dL (40-60); Potassium 3.8 mmol/L (3.5-5.1); Sodium 141 mmol/L (136-145); Total Protein 7.6 g/dL (6.4-8.2); Triglyceride 84 mg/dL (<150)
[2020-11-27 09:07] LABS: HBs Antibody, Quant >1000.0 mIU/mL (See Note); Hepatitis B Surface Ab Positive (See Note)
[2020-11-27 09:17] LABS: Hepatitis B Surface Ag Negative (Negative)
[2020-11-27 09:57] LABS: HIV-1/2 Ag & Ab Screen Negative (Negative)
[2020-11-27 10:12] LABS: Hepatitis C Ab w Rflx HCV PCR Reactive (Negative)
[2020-11-27 11:44] LABS: Syphilis Serology (RPR) Negative (Negative)
[2020-11-27 15:17] LABS: Chlamydia Result Negative (Negative); GC Result Negative (Negative)
[2020-11-30 13:57] LABS: HCV RNA Qualitative Undetected (Undetected)
== END 2020-11-26 14:41 | disposition home or self-care (01) ==
LOC: NCHCN 14:40
PROVIDERS: PCP Nurse Practitioner Family; Visit Provider Nurse Practitioner Family
DX: R06.02 Shortness of breath (principal); B18.2 Chronic viral hepatitis C; Z11.3 Encounter for screening for infections with a predominantly sexual mode of transmission; Z11.4 Encounter for screening for human immunodeficiency virus [HIV]; Z13.220 Encounter for screening for lipoid disorders
CPT/HCPCS: 80053; 80061; 85027; 86706; 86803; 87340; 87389; 87491; 87522; 87591; 86592

== ENCOUNTER 2021-02-03 13:17 | Outpatient (REF) | payer MEDICAID, SELFPAY ==
[2021-02-03 16:50] LABS: Bilirubin Negative (Negative); Blood Trace-intact (Negative); Clarity Clear (Clear); Glucose Negative (Negative); Ketones Trace mg/dL (Negative); Leukocyte Esterase Negative (Negative); Nitrite Positive (Negative); Specific Gravity >= 1.030 (1.005-1.025); Urobilinogen 0.2 EU/dL (Up TO 0.2)
[2021-02-03 17:07] LABS: C & S Indicated? No/Sq. Contamination; Epithelial Cells Many HPF (Negative)
== END 2021-02-03 13:18 | disposition home or self-care (01) ==
LOC: NCHCN 13:17
PROVIDERS: PCP Nurse Practitioner Family; Visit Provider Nurse Practitioner Family
DX: R32 Unspecified urinary incontinence (principal)
CPT/HCPCS: 81003; 81015

== ENCOUNTER 2021-02-05 13:19 | Outpatient (REF) | payer MEDICAID, SELFPAY ==
[2021-02-05 18:19] LABS: Bilirubin Negative (Negative); Blood Trace-intact (Negative); Clarity Clear (Clear); Glucose Negative (Negative); Ketones Negative (Negative); Leukocyte Esterase Small (Negative); Nitrite Negative (Negative); Urobilinogen 0.2 EU/dL (Up TO 0.2)
[2021-02-05 18:33] LABS: Bacteria Few HPF (Negative); C & S Indicated? No/Sq. Contamination; Casts Negative LPF (Negative); Crystals Negative HPF (Negative); Epithelial Cells Many HPF (Negative); Mucus Negative (Negative); Other Cells Negative (Negative); RBC 0-2 HPF (0-2); WBC 0-2 HPF (0-5)
== END 2021-02-05 13:20 | disposition home or self-care (01) ==
LOC: NCHCN 13:19
PROVIDERS: PCP Nurse Practitioner Family; Visit Provider Nurse Practitioner Family
DX: R32 Unspecified urinary incontinence (principal)
CPT/HCPCS: 81003; 81015

== ENCOUNTER 2021-04-08 14:52 | Outpatient (REF) | payer MEDICAID, SELFPAY | END 2021-04-08 14:53 | disposition home or self-care (01) | LOC: NCHCN 14:52 | PROVIDERS: PCP Nurse Practitioner Family; Visit Provider Nurse Practitioner Family | DX: R30.0 Dysuria (principal) | CPT/HCPCS: 87077; 87086; 87186 ==

== ENCOUNTER 2021-06-01 12:51 | Outpatient (REF) | payer MEDICAID, SELFPAY | END 2021-06-01 12:52 | disposition home or self-care (01) | LOC: NCHCN 12:51 | PROVIDERS: PCP Nurse Practitioner Family; Referring Provider Nurse Practitioner Family; Visit Provider Nurse Practitioner Family | DX: N89.8 Other specified noninflammatory disorders of vagina (principal) | CPT/HCPCS: 87480; 87510; 87660 ==

== ENCOUNTER 2021-07-14 02:13 | Outpatient (CLI) | payer MEDICAID, SELFPAY ==
--- NOTE | 2021-07-14 08:00 | DI.US_ITS ---
Exam(s) US PELVIS TRANSVAGINAL EXAM: US PELVIS TRANSVAGINAL CLINICAL HISTORY: Evaluate anatomy,AMENORRHEA,N91.2 TECHNIQUE: Ultrasound of the pelvis was performed both transabdominal and transvaginal. COMPARISON: No exams were available for comparison FINDINGS: UTERUS: Measures 6 cm length x 3 cm AP x 3.4 cm wide. There are no uterine fibroids. Endometrial thickness measures 1.3 mm. There is no fluid in the endometrial canal. CERVIX: There are no obvious nabothian cysts. RIGHT OVARY: Measures 1.9 x 1.8 x 1.8 cm No significant cysts nor masses evident in the right ovary. LEFT OVARY: Measures 1.9 x 0.7 x 2.4 cm No significant cysts nor masses evident in the left ovary. CUL-DE-SAC: No free fluid evident. IMPRESSION: 1. Normal appearing uterus and non thickened endometrium 2. There are no ovarian masses. Also no extraovarian adnexal masses. 3. No free fluid evident in the adnexal regions and cul-de-sac. DATA REPOSITORY:
== END 2021-07-14 02:33 ==
PROVIDERS: PCP Nurse Practitioner Family; Visit Provider Obstetrics & Gynecology
DX: N91.2 Amenorrhea, unspecified (principal)
CPT/HCPCS: 76830; 76856

== ENCOUNTER 2021-08-05 02:15 | Outpatient (CLI) | payer MEDICAID, SELFPAY ==
[2021-08-05 11:09] LABS: Abs Immature Grans 0.04 10^3/uL (0.0-0.06); Absolute Monocyte Count 0.76 10^3/uL (0.1-0.8); Basophils % 0.8; Eosinophils % 2.5; HCT 43.2 % (36.0-46.0); HGB 13.4 g/dL (11.2-15.7); Immature Grans % 0.3; MCH 28.6 pg (27.0-33.0); MCV 92.3 fL (80-95); MPV 9.5 fL (8.0-11.0); Monocytes % 6.4; Nucleated RBC 0 %; Platelet Count 371 10^3/uL (130-400); RBC 4.68 10^6/uL (3.93-5.22); RDW 13.2 % (11.7-14.6); WBC 11.95 10^3/uL (4.4-10.8)
[2021-08-05 11:10] LABS: Absolute Neutrophil Count 7.05 10^3/uL (1.2-6.7)
[2021-08-05 12:25] LABS: ALT 79 U/L (14-59); AST 40 U/L (15-37); Albumin 3.7 g/dL (3.4-5.0); Alkaline Phosphatase 67 U/L (46-116); BUN 11 mg/dL (7-18); Bilirubin, Total 0.2 mg/dL (0.2-1.0); Chloride 102 mmol/L (98-107); Glucose 144 mg/dL (74-106); Potassium 4.2 mmol/L (3.5-5.1); Sodium 141 mmol/L (136-145); TSH (W/Ref FT4) 13.71 uIU/mL (0.36-3.74)
[2021-08-05 12:26] LABS: HCG Quant, Pregnancy < 1 mIU/mL (1-3)
[2021-08-05 12:42] LABS: FREE T4 0.72 ng/dL (0.76-1.46)
[2021-08-05 18:13] LABS: FSH 1.7 mIU/mL (See Note); LH 0.4 mIU/mL (See Note); Prolactin 7.6 ng/mL (See Table)
== END 2021-08-05 02:16 | disposition home or self-care (01) ==
LOC: LBO 02:15
PROVIDERS: PCP Nurse Practitioner Family; Visit Provider Obstetrics & Gynecology
DX: N91.2 Amenorrhea, unspecified (principal)
CPT/HCPCS: 36415; 80053; 83001; 83002; 84146; 84439; 84443; 84702; 85025

== ENCOUNTER 2021-08-11 12:48 | Outpatient (REF) | payer MEDICAID, SELFPAY | END 2021-08-11 12:49 | disposition home or self-care (01) | LOC: NCHCN 12:48 | PROVIDERS: PCP Nurse Practitioner Family; Visit Provider Physician Assistant | DX: N39.0 Urinary tract infection, site not specified (principal) | CPT/HCPCS: 87086 ==

== ENCOUNTER 2022-03-07 15:21 | Outpatient (REF) | payer MEDICAID, SELFPAY ==
[2022-03-10 08:44] LABS: Chlamydia Result Negative (Negative); GC Result Negative (Negative)
== END 2022-03-07 15:22 | disposition home or self-care (01) ==
LOC: LBN 15:21
PROVIDERS: PCP Nurse Practitioner Family; Visit Provider Obstetrics & Gynecology
DX: N91.0 Primary amenorrhea (principal); Z11.3 Encounter for screening for infections with a predominantly sexual mode of transmission
CPT/HCPCS: 87491; 87591

== ENCOUNTER 2022-03-09 02:13 | Outpatient (CLI) | payer MEDICAID, SELFPAY ==
[2022-03-09 14:20] LABS: TSH (W/Ref FT4) 12.49 uIU/mL (0.36-3.74)
[2022-03-09 15:08] LABS: FREE T4 0.73 ng/dL (0.76-1.46)
[2022-03-09 23:05] LABS: FSH 6.6 mIU/mL (See Note); Prolactin 10.8 ng/mL (See Note)
[2022-03-10 09:43] LABS: HIV-1/2 Ag & Ab Screen Negative (Negative)
[2022-03-10 11:38] LABS: Syphilis Serology (RPR) Negative (Negative)
[2022-03-11 11:21] LABS: Antimullerian Hormone 1.2 ng/mL (0.15-7.5)
== END 2022-03-09 02:14 | disposition home or self-care (01) ==
LOC: LBO 02:14
PROVIDERS: PCP Nurse Practitioner Family; Visit Provider Obstetrics & Gynecology
DX: N92.0 Excessive and frequent menstruation with regular cycle (principal); Z11.3 Encounter for screening for infections with a predominantly sexual mode of transmission; Z11.4 Encounter for screening for human immunodeficiency virus [HIV]
CPT/HCPCS: 36415; 87389; 83001; 83520; 84146; 84439; 84443; 86592

== ENCOUNTER 2022-03-21 18:37 | Emergency (ER) | payer MEDICAID, SELFPAY ==
[2022-03-21 18:34] VITALS: BP 148/85; PULSE 82; RESP 14; TEMP 36.7; O2SAT 98
--- OUTSIDE RECORDS SUMMARY | 2022-03-21 18:45 | XMS_ITS | Encounter Summary ---
:[address] [facility] Address [address] [place] [address] Care Team Providers Name Role Phone Unknown, Provider Primary Care Provider Encounter Details Date Type Department Care Team Description 02/17/2009 Hospital Encounter [facility] Urgent Unknown, Provider, Care - Sherron goss MD [address] [facility] [phone] [place] [address] (Work) [phone] Social History Tobacco Use Types Packs/Day Years Used Date Never Assessed Sex Assigned at Date Recorded Not on file documented as of this encounter Discharge Disposition Disposition Code Departure Means Destination Home or Self Care documented in this encounter Plan of Treatment Not on filedocumented as of this encounter Procedures Procedure Name Priority Date/Time Associated Diagnosis Comme nts CYTOPATHOLOGY Routine 04/03/2009 0:00 EDT Results for this procedure are i n the results section . documented in this encounter Results CYTOPATHOLOGY (04/03/2009 0:00 EDT) Pathology Report: CYTOPATHOLOGY REPORT ? [facility] ? LAB Reports generated via electr onic interface contain original data; ? however they are lacking the format of the original report. ? Caution should be taken when reading/interpreting unformatted reports. ? Name: ? BIRDIE, BRIAN [place] ? Accession #: ? [id number] ? : ? 1985 (Age: 23) ??F ?Collect Date: ? 04/03/2009 ? Location: ? [facility] ? Receive Date: ? 04/06/2009 ? Provider: ?ANEA LELON G CNM ? Copy to: ? Specimen/Source: ? Pap Test, Cervix/Endocervix, ThinPrep Imaging System ? with manual evaluation ? Last Menstrual Period: ? spots occ. ? Hormonal/Contraceptive Statu s: ? Intrauterine device: Mirena ? Other: ? HPVA - HPV testing requested if ASC-US on the current ThinPrep Pap test. ? SPECIMEN ADEQUACY ? Satisfactory for Eval uation ? - transformation zone compon ent present ? GENERAL CATEGORIZATION ? Negative for Intraepi thelial Lesion or Malignancy ? Document reviewed and electr onically signed by: ? Paloma Tapan, CT(ASCP ) ? Report Date: ??07/22/ 2009 16:04 ? End of Report ? Specimen Performing Organization Address [facility] Phon e Number [facility] [address] [place] [address] SERVICES [facility] [address] [place] [address] documented in this encounter Visit Diagnoses Not on filedocumented in this encounter Care Teams General Pediatrician Relationship Specialty Start Date End Date Unknown, Provider, PCP - General 02/17/09 07/02/13 documented as of this encounter
--- OUTSIDE RECORDS SUMMARY | 2022-03-21 18:45 | XMS_ITS | Encounter Summary ---
:1985 Author Organization [facility] Address [address] [place] [address] Care Team Providers Name Role Phone Ailyn Wells STUDIO RECEPTIONIST Primary Care Provider Encounter Details Date Type Department Care Team Description 11/26/2020 Lab Requisition [facility] Outr Resulting Lab, Pathology & Laboratory Provider [facility] [address] [place] [address] Social History Tobacco Use Types Packs/Day Years Used Date Never Assessed Sex Assigned at Date Recorded Not on file documented as of this encounter Plan of Treatment Not on filedocumented as of this encounter Procedures Procedure Name Priority Date/Time Associated Comments Diagnosis CHLAMYDIA/N. Routine 11/26/2020 10:10 Results for this GONORRHOEAE AMPLIFIED EST proced ure are in RNA the results section. documented in this encounter Results CHLAMYDIA/N. GONORRHOEAE AMPLIFIED RNA (11/26/2020 10:10 EST) Pathologist Sig nature Gonococcus Result Negative Negative [facility] Chlamydia Result Negative Negative [facility] Specimen Urine - Urine, Dirty Urine Narrative [facility] - 11/27/2020 15:12 EST A first catch urine specimen is acceptab le for detection of Gonorrhea and Chlamydia, but might detect up to 10% fewer infecti ons when compared with vaginal and endocervical swab samples. Performing Organization Address City/State/ZIP Code Phon e Number [facility] [address] [place] [address] SERVICES documented in this encounter Visit Diagnoses Not on filedocumented in this encounter Care Teams Drum Straightener Relationship Specialty Start Date End Date Ailyn Wells, STUDIO RECEPTIONIST PCP - General 05/02/[address] [place], [place] [address] [address] [place] [address] documented as of this encounter
--- OUTSIDE RECORDS SUMMARY | 2022-03-21 18:45 | XMS_ITS | Encounter Summary ---
:1985 Author Organization [facility] Address [address] [place] [address] Care Team Providers Name Role Phone Ailyn Wells DIRECTOR OF RETENTION Primary Care Provider Encounter Details Date Type Department Care Team Description 02/22/2018 Results Only [facility]- Marquita Carlson MD [phone] [address] [place], [place] [phone] (Wo rk) Social History Tobacco Use Types Packs/Day Years Used Date Never Assessed Sex Assigned at Date Recorded Not on file documented as of this encounter Plan of Treatment Not on filedocumented as of this encounter Procedures Procedure Name Priority Date/Time Associated Diagnosis Comme nts PAP TEST- RESULT Routine 02/22/2018 0:00 EDT Resu lts for this ONLY procedure are i n the results section. documented in this encounter Results PAP TEST- RESULT ONLY (02/22/2018 0:00 EDT) Pathology Report: CYTOPATHOLOGY REPORT [facility] Reports generated via electronic interface contain jeannie ginal data; SERVICES however they are lacking the format of the original re port. Caution should be taken when reading/interpreting unfo rmatted reports. Name: ? BRIAN PACKER ? Accession #: ? [id number] ? : ? 1985 (Age: 4 1) ??F ?Collect Date: ? 2017 ? Location: ? [facility] ? Receive Date: ? 8 ? Provider: MARQUITA TAPIA MD Copy to: JAKE HUMPHREY DIRECTOR OF RETENTION ? Final Report SPECIMEN ADEQUACY ? Satisfactory for Evaluation - transformation zone component present - scant squamous epithelial component GENERAL CATEGORIZATION ? Negative for Intraepithelial Lesion or Malignan cy INTERPRETATION ? Reactive cellular enrique nges associated with inflammation present (includes repair). Previous Gynecologic Pathology: [facility]IL: 2013 Specimen/Source: ??Pap Test, Cervix/Endocervix, ThinPr ep Imaging System with manual evaluation Document reviewed and electronically signed by: ? HAILE BREEN MD ? Report ??Date: 03/02/2018 15:54 HPV with Pap Test ? Date Ordered: ? 02/28/2018 ? Status: ?? Signed Out ?Date Complete: ? 03/05/2018 ? By: ??Sy stem Interface ? Date Reported: ? 03/05/2018 ? Interpretation RESULT: Negative for HPV. No E6 or E7 mRNA is detected from HPV types 16,18,31,3 3,35, 39,45,51,52,56,58,59,66, and 68 by cook [employer] caf[employer] media osiel amplification. Comments Document reviewed and electronically signed by: ? System Interface ? Report date: 03/05/2018 By the signature above, the attending physician certif ies that he/she has personally conducted a gross and/or microscopic examin ation of the described specimens and rendered or confirmed the above diagnosi s. End of Report Specimen Performing Organization Address City/State/ZIP Code Phon e Number [facility] [address] [place], [place] [address] SERVICES documented in this encounter Visit Diagnoses Not on filedocumented in this encounter Care Teams Seam Stay Stitcher Relationship Specialty Start Date End Date Ailyn Wells, DIRECTOR OF RETENTION PCP - General 05/02/[address] [place] [phone] documented as of this encounter
--- OUTSIDE RECORDS SUMMARY | 2022-03-21 18:45 | XMS_ITS | Encounter Summary ---
:1985 Author Organization [facility] Address [address] [place] [address] Care Team Providers Name Role Phone None, Provider Primary Care Provider Unavailable Encounter Details Date Type Department Care Team Description 08/08/2013 Hospital Encounter [facility]- Sherron Unknown, Provider, [facility] [address] [facility] [phone] [place] [address] (Work) [phone] Social History Tobacco Use Types Packs/Day Years Used Date Never Assessed Sex Assigned at Date Recorded Not on file documented as of this encounter Discharge Disposition Disposition Code Departure Means Destination Home or Self Alf documented in this encounter Plan of Treatment Not on filedocumented as of this encounter Visit Diagnoses Not on filedocumented in this encounter Care Teams Certified Technician Specialist Relationship Specialty Start Date End Date None, Provider PCP - General 07/03/13 08/12/13 documented as of this encounter
--- OUTSIDE RECORDS SUMMARY | 2022-03-21 18:45 | XMS_ITS | Encounter Summary ---
:1985 Author Organization [facility] Address [address] [place] [address] Care Team Providers Name Role Phone Unknown, Provider Primary Care Provider Encounter Details Date Type Department Care Team Description 04/28/2010 Results Only [facility] Doretha Casarez, [place] Laboratory Services - [address] [address] Social History Tobacco Use Types Packs/Day Years Used Date Never Assessed Sex Assigned at Date Recorded Not on file documented as of this encounter Plan of Treatment Not on filedocumented as of this encounter Procedures Procedure Name Priority Date/Time Associated Diagnosis Comme nts CYTOPATHOLOGY Routine 04/28/2010 0:00 EDT Results for this procedure are i n the results section . documented in this encounter Results CYTOPATHOLOGY (04/28/2010 0:00 EDT) Pathology Report: CYTOPATHOLOGY REPORT ? [facility] ? LAB Reports generated via Adonit interface contain original data; ? however they are lacking the format of the original report. ? Caution should be taken when reading/interpreting unformatted reports. ? Name: ? BRIAN PACKER ? Accession #: ? [id number] ? : ? 1985 (Age: 24) ??F ?Collect Date: ? 04/28/2010 ? Location: ? [facility] ? Receive Date: ? 04/29/2010 ? Provider: ?DORETHA SHEN ASSOCIATE PATHOLOGIST ? Copy to: ? Specimen/Source: ? Pap Test, Cervix/Endocervix, ThinPrep Imaging System ? with manual evaluation ? Last Menstrual Period: ? Hormonal/Contraceptive Statu s: ? Intrauterine device: Pt has Mirena ? Other: ? HPVA - HPV testing requested if ASC-US on the current ThinPrep Pap test. ? SPECIMEN ADEQUACY ? Satisfactory for Eval uation ? - transformation zone compon ent present ? GENERAL CATEGORIZATION ? Negative for Intraepi thelial Lesion or Malignancy ? INTERPRETATION ? Shift in praveena presen t suggestive of bacterial vaginosis. ? Document reviewed and electr onically signed by: ? Coni Pinedo, SCT( ASCP) ? Report Date: ??08/16/ 2010 14:36 ? End of Report ? Specimen Performing Organization Address City/[facility]/ZIP Code Phon e Number [facility] [address] [place] [address] SERVICES [facility] [address] [place] [address] documented in this encounter Visit Diagnoses Not on filedocumented in this encounter Care Teams Superintendent Generating Plant Relationship Specialty Start Date End Date Unknown, Provider, PCP - General 02/17/09 07/02/13 documented as of this encounter
--- OUTSIDE RECORDS SUMMARY | 2022-03-21 18:45 | XMS_ITS | Encounter Summary ---
:1985 Author Organization [facility] Address [address] [place] [address] Care Team Providers Name Role Phone Ailyn Wells COW TESTER Primary Care Provider Encounter Details Date Type Department Care Team Description 03/09/2022 Lab Requisition [facility] Outr Resulting Lab, Pathology & Laboratory Provider [facility] [address] [place] [address] Social History Tobacco Use Types Packs/Day Years Used Date Never Assessed Sex Assigned at Date Recorded Not on file documented as of this encounter Plan of Treatment Not on filedocumented as of this encounter Procedures Procedure Name Priority Date/Time Associated Comments Diagnosis HIV 1/2 ANTIGEN AND Routine 03/09/2022 13:35 Resu lts for this ANTIBODY, 4TH EDT procedure are in GENERATION the results section. documented in this encounter Results HIV 1/2 ANTIGEN AND ANTIBODY, 4TH GENERATION (03/09/2022 13:35 EDT) HIV 1 and 2 NegativeComment: If Negative [facility] Antibody/p24 acute HIV-1 LABORATORY Antigen, 4th infection is SERVICES Generation suspected in a high risk patient, submit plasma specimen for HIV-1 RNA quantitation test. Specimen Blood - Venous blood (substance) Narrative [facility]ORATORY SERVICES - 03/10/2022 9:40 EDT Fourth Generation assay performed on the Siemens Centaur XPT. Performing Organization Address City/State/ZIP Code Phon e Number [facility] [address] [place] [address] SERVICES documented in this encounter Visit Diagnoses Not on filedocumented in this encounter Care Teams Stenotypist Relationship Specialty Start Date End Date Besch, Ailyn W, COW TESTER PCP - General 05/02/[address] [phone] documented as of this encounter
--- OUTSIDE RECORDS SUMMARY | 2022-03-21 18:45 | XMS_ITS | Encounter Summary ---
:1985 Author Organization [facility] Address [address] [place] [address] Care Team Providers Name Role Phone Unknown, Provider Primary Care Provider Encounter Details Date Type Department Care Team Description 02/05/2004 Results Only [facility] Emmie Marroquin MD Dermatology - [facility] [address] [place], [place] [address] [phone] [place] [address] [phone] Social History Tobacco Use Types Packs/Day Years Used Date Never Assessed Sex Assigned at Date Recorded Not on file documented as of this encounter Plan of Treatment Not on filedocumented as of this encounter Procedures Procedure Name Priority Date/Time Associated Diagnosis Comme nts CYTOPATHOLOGY Routine 02/05/2004 0:00 EDT Results for this procedure are i n the results section . documented in this encounter Results CYTOPATHOLOGY (02/05/2004 0:00 EDT) Pathology Report: CYTOPATHOLOGY REPORT [facility] Reports generated via electronic interface contain jeannie ginal data; however they are lacking the format of the original re port. Caution should be taken when reading/interpreting unfo rmatted reports. Name: ? GABI PACKER ? Accession #: ? [id number] : ? 1985 (Age: 18) ??F ?Collect Date: ? 01/17 Location: ? [facility] ? Receive Date : ? 02/06/2004 Provider: ?EMMIE MARROQUIN MD Copy to: ? Specimen/Source: ?ThinPrep Pap Test, Endocer vix Last Menstrual Period: ? 10/21 Hormonal/Contraceptive Status: ? Depo-Provera Other: ? DHPV - HPV testing requested if ASCUS/JUAN FRANCISCO on the curr ent ThinPrep Pap test. ? SPECIMEN ADEQUACY ? Satisfactory for Evaluation - transformation zone component present GENERAL CATEGORIZATION ? Negative for Intraepithelial Lesion or Malignan cy ? Document reviewed and electronically signed by: ? ELENITA Nunn(ASCP) ? Report Date: ??02/11/2004 12:45 End of Report Specimen Performing Organization Address City/State/ZIP Code Phon e Number [facility] [address] [place] [address] SERVICES [facility] [address] [place] [address] documented in this encounter Visit Diagnoses Not on filedocumented in this encounter Care Teams Machine Operator Packaging Relationship Specialty Start Date End Date Unknown, Provider, PCP - General 02/17/09 07/02/13 documented as of this encounter
--- OUTSIDE RECORDS SUMMARY | 2022-03-21 18:45 | XMS_ITS | Encounter Summary ---
:1985 Author Organization [facility] Address [address] [place] [address] Care Team Providers Name Role Phone Ailyn Wells Alejandro MAINTENANCE CRAFTSMAN Primary Care Provider Encounter Details Date Type Department Care Team Description 08/05/2021 Lab Requisition [facility] Outr Resulting Lab, Pathology & Laboratory Provider [facility] [address], [place] [id number] Social History Tobacco Use Types Packs/Day Years Used Date Never Assessed Sex Assigned at Date Recorded Not on file documented as of this encounter Plan of Treatment Not on filedocumented as of this encounter Procedures Procedure Name Priority Date/Time Associated Diagnosis Comme nts PROLACTIN Routine 08/05/2021 10:46 EST Results for this procedure are i n the results section . LH Routine 08/05/2021 10:46 EST Results for this procedure are i n the results section . FSH Routine 08/05/2021 10:46 EST Results for this procedure are i n the results section . documented in this encounter Results LH (08/05/2021 10:46 EST) Luteinizing Hormone 0.[address] [facility] MEDICAL Comment: mIU/mL CENTER LABORATORY NOTE: SERVICES Female Reference Ranges: Pre-Pubertal: ?<6.0 mIU/mL Menstruating: Follicular Phase(-12 to -4 days: ??1.9 - 12.5 mIU/mL Midcycle(-3 to +2 days): ?8.7 - 76.3 mIU/ mL Luteal Phase(+4 to +12 days): ? 0.5 - 16.9 mIU/mL Post Menopausal: 15.9 - 54.0 mIU/mL Specimen Blood - Venous blood (substance) Performing Organization Address [facility] Phon e Number [facility] [address] [place] [address] SERVICES FSH (08/05/2021 10:46 EST) Pathologist Sig nature FSH 1.7 See Note mIU/mL [facility] SERVICES Specimen Blood - Venous blood (substance) Narrative [facility] SERVICES - 08/05/2021 18:08 EST NOTE: Female FSH Reference Ranges (>= 13 Menst ruating): PHYSIOLOGICAL STATUS ? REFE RENCE RANGE ? ---- Follicular (-12 to -4 days): ?? 2.5 - 1 0.2 mIU/mL Midcycle (-3 to +2 days): ?3.4 - 33.4 mIU/mL Luteal (+4 to +12 days): ? 1.5 - 9.1 mIU/mL Postmenopausal: ? 23.0 - 116.3 mIU/mL Reference Ranges for female patients <13 years old have not been established. Performing Organization Address [facility] Phon e Number [facility] [address] [place] [address] SERVICES PROLACTIN (08/05/2021 10:46 EST) Prolactin 7.6 See Table [facility] Comment: ng/mL LABORATORY SERVICES NOTE: Female Reference Ranges: PHYSIOLOGICAL STATUS ?EXPECTED R BRIDGER ? ---- Postmenopausal ?1.8 - 2 0.3 ng/mL ?9.7 - 208.5 ng/mL Non- ?2.8 - 29.2 ng/mL Reference Ranges for Prolact in in female patients <18 years old have not been established. Specimen Blood - Venous blood (substance) Performing Organization Address City/State/ZIP Code Phon e Number [facility] [address] [place] [address] SERVICES documented in this encounter Visit Diagnoses Not on filedocumented in this encounter Care Teams Continuing Education Dean Relationship Specialty Start Date End Date Ailyn Wells NP PCP - General 05/02/[address] [place] [phone] documented as of this encounter
--- OUTSIDE RECORDS SUMMARY | 2022-03-21 18:45 | XMS_ITS | Encounter Summary ---
:1985 Author Organization [facility] Address [address] [place] [address] Care Team Providers Name Role Phone Ailyn Wells FARM EQUIPMENT MECHANIC APPRENTICE Primary Care Provider Encounter Details Date Type Department Care Team Description 11/26/2020 Lab Requisition [facility] Outr Resulting Lab, Pathology & Laboratory Provider [facility] [address] [place] [address] Social History Tobacco Use Types Packs/Day Years Used Date Never Assessed Sex Assigned at Date Recorded Not on file documented as of this encounter Plan of Treatment Not on filedocumented as of this encounter Procedures Procedure Name Priority Date/Time Associated Diagnosis Comme nts HOLD SST Today 11/26/2020 10:10 Results for this EST procedure are i n the results section. SYPHILIS SEROLOGY Today 11/26/2020 10:10 Result s for this EST procedure are i n the results section. documented in this encounter Results HOLD SST (11/26/2020 10:10 EST) Pathologist Sig nature Hold Hold [facility] Specimen Blood - Venous blood (substance) Performing Organization Address [facility] Phon e Number [facility] [address] [place] [address] SERVICES SYPHILIS SEROLOGY (11/26/2020 10:10 EST) Pathologist Sig nature Syphilis Serology Negative Negative [facility] SERVICES Specimen Blood - Venous blood (substance) Performing Organization Address [facility] Phon e Number [facility] [address] [place] [address] SERVICES documented in this encounter Visit Diagnoses Not on filedocumented in this encounter Care Teams Enterprise Integration Developer Relationship Specialty Start Date End Date Ailyn Wells, CT PCP - General 05/02/[address] [place] [phone] documented as of this encounter
--- OUTSIDE RECORDS SUMMARY | 2022-03-21 18:45 | XMS_ITS | Encounter Summary ---
:[address] [facility] Address [address] [place] [address] Care Team Providers Name Role Phone Unknown, Provider Primary Care Provider Encounter Details Date Type Department Care Team Description 03/24/2006 Results Only [facility] - Coni Jamison CNM [facility] [address] [place] [phone] Social History Tobacco Use Types Packs/Day Years Used Date Never Assessed Sex Assigned at Date Recorded Not on file documented as of this encounter Plan of Treatment Not on filedocumented as of this encounter Procedures Procedure Name Priority Date/Time Associated Diagnosis Comme nts CYTOPATHOLOGY Routine 03/24/2006 0:00 EDT Results for this procedure are i n the results section . documented in this encounter Results CYTOPATHOLOGY (03/24/2006 0:00 EDT) Pathology Report: CYTOPATHOLOGY REPORT [facility] Reports generated via electronic interface contain jeannie ginal data; however they are lacking the format of the original re port. Caution should be taken when reading/interpreting unfo rmatted reports. Name: ? GABI PACKER ? Accession #: ? [id number] : ? 1985 (Age: 20) ??F ?Collect Date: ? 03/2006 Location: ? [facility] ? Receive Date : ? 03/27/2006 Provider: ?CONI HEART CNM Copy to: ? Specimen/Source: ? ThinPrep Pap Test, Cervix/Endocervix, processed on iAdvize ThinPrep Imaging System, with manual evaluation Last Menstrual Period: ? 01/20/06 Menstrual/ Status: ? Other: ? HPVA - HPV testing requested if ASC-US on the current ThinPrep Pap test. ? SPECIMEN ADEQUACY ? Satisfactory for Evaluation - transformation zone component present GENERAL CATEGORIZATION ? Negative for Intraepithelial Lesion or Malignan cy ? Document reviewed and electronically signed by: ? Karol Conde [facility](ASCP) ? Report Date: ??03/30/2006 08:59 End of Report Specimen Performing Organization Address City/State/ZIP Code Phon e Number [facility] [address] [place] [address] SERVICES [facility] [address] [place] [address] documented in this encounter Visit Diagnoses Not on filedocumented in this encounter Care Teams Aerial Photograph Interpreter Relationship Specialty Start Date End Date Unknown, Provider, PCP - General 02/17/09 07/02/13 documented as of this encounter
--- OUTSIDE RECORDS SUMMARY | 2022-03-21 18:45 | XMS_ITS | Encounter Summary ---
:1985 Author Organization [facility] Address [address] [place] [address] Care Team Providers Name Role Phone Ailyn Wells CHIP CRUSHER OPERATOR Primary Care Provider Encounter Details Date Type Department Care Team Description 02/22/2018 Hospital Encounter [facility] Unknown, Provider, [facility] [address] [facility] [phone] [place] [address] (Work) [phone] Social History Tobacco Use Types Packs/Day Years Used Date Never Assessed Sex Assigned at Date Recorded Not on file documented as of this encounter Discharge Disposition Disposition Code Departure Means Destination Home or Self Correction documented in this encounter Plan of Treatment Not on filedocumented as of this encounter Visit Diagnoses Not on filedocumented in this encounter Care Teams Match Marker Relationship Specialty Start Date End Date Ailyn Wells, CHIP CRUSHER OPERATOR PCP - General 05/02/14 [address] [facility] [address] [place] [phone] documented as of this encounter
--- OUTSIDE RECORDS SUMMARY | 2022-03-21 18:45 | XMS_ITS | Encounter Summary ---
:1985 Author Organization [facility] Address [address] [place] [address] Care Team Providers Name Role Phone Ailyn Wells CONSUMER LOAN PROCESSOR Primary Care Provider Encounter Details Date Type Department Care Team Description 11/26/2020 Lab Requisition [facility] Outr Resulting Lab, Pathology & Laboratory Provider [facility] [address] [place], [place] [id number] Social History Tobacco Use Types Packs/Day Years Used Date Never Assessed Sex Assigned at Date Recorded Not on file documented as of this encounter Plan of Treatment Not on filedocumented as of this encounter Procedures Procedure Name Priority Date/Time Associated Comments Diagnosis HIV 1/2 ANTIGEN AND Routine 11/26/2020 10:10 Resu lts for this ANTIBODY, 4TH EST procedure are in GENERATION the results section. documented in this encounter Results HIV 1/2 ANTIGEN AND ANTIBODY, 4TH GENERATION (11/26/2020 10:10 EST) HIV 1 and 2 Negative Negative [facility] Antibody/p24 Comment: LABORATORY Antigen, 4th If acute HIV-1 infection is suspected in a high risk ??patient, submit plasma specimen for HIV-1 RNA quantitation test. SERV ICES Generation Fourth Generation assay performed on the Siemens [employer]. Specimen Blood - Venous blood (substance) Performing Organization Address City/State/ZIP Code Phon e Number [facility] [address] [place] [address] SERVICES documented in this encounter Visit Diagnoses Not on filedocumented in this encounter Care Teams Visual Presentation Manager Relationship Specialty Start Date End Date Ailyn Wells, CONSUMER LOAN PROCESSOR PCP - General 05/02/14 [address] [facility] [address] [place] [phone] documented as of this encounter
--- OUTSIDE RECORDS SUMMARY | 2022-03-21 18:45 | XMS_ITS | Clinical Summary ---
:1985 Author Organization [facility] Address [address] [place] [address] Care Team Providers Name Role Phone Ailyn Wells SCREEN PRINTING SUPERVISOR Primary Care Provider Encounters Date Type Specialty Care Team Description 03/09/2022 Lab Requisition [facility] Outr Resulting Lab , Provider 03/09/2022 Lab Requisition Clinical Laboratory Outr Resulting Lab , Provider 03/07/2022 Lab Requisition Clinical Laboratory Outr Resulting Lab , Provider from Last 3 Months Social History Tobacco Use Types Packs/Day Years Used Date Never Assessed Sex Assigned at Date Recorded Not on file Plan of Treatment Health Maintenance Due Date Last Done Comments COVID-19 Vaccine (#1) 12/09/1991 Hepatitis C Screen Completed 11/26/2020, 11/26/2020 Procedures Procedure Name Priority Date/Time Associated Comments Diagnosis FSH Routine 03/09/2022 13:35 Results for this EDT procedure are i n the results section. SYPHILIS SEROLOGY Routine 03/09/2022 13:35 Result s for this EDT procedure are i n the results section. PROLACTIN Routine 03/09/2022 13:35 Results for this EDT procedure are i n the results section. HIV 1/2 ANTIGEN AND Routine 03/09/2022 13:35 Resu lts for this ANTIBODY, 4TH EDT procedure are in GENERATION the results section. CHLAMYDIA/N. Routine 03/07/2022 13:30 Results for this GONORRHOEAE AMPLIFIED EDT proced ure are in RNA the results section. from Last 3 Months Results SYPHILIS SEROLOGY (03/09/2022 13:35 EDT) Pathologist Sig nature Syphilis Serology Negative Negative [facility] SERVICES Specimen Blood - Venous blood (substance) Performing Organization Address City/State/ZIP Code Phon e Number [facility] [address] [place] [address] SERVICES PROLACTIN (03/09/2022 13:35 EDT) Prolactin 10.8 See Note ng/mL [facility] Comment: LABORATORY SERVICES NOTE: Female Reference Ranges: PHYSIOLOGICAL STATUS ?EXPECTED R BRIDGER ? ---- Postmenopausal ?1.8 - 2 0.3 ng/mL ?9.7 - 208.5 ng/mL Non- ?2.8 - 29.2 ng/mL Reference Ranges for Prolact in in female patients <18 years old have not been established. Specimen Blood - Venous blood (substance) Performing Organization Address City/State/ZIP Code Phon e Number [facility] [address] [place] [address] SERVICES HIV 1/2 ANTIGEN AND ANTIBODY, 4TH GENERATION (03/09/2022 13:35 EDT) HIV 1 and 2 NegativeComment: If Negative [facility] Antibody/p24 acute HIV-1 LABORATORY Antigen, 4th infection is SERVICES Generation suspected in a high risk patient, submit plasma specimen for HIV-1 RNA quantitation test. Specimen Blood - Venous blood (substance) Narrative [facility] SERVICES - 03/10/2022 9:40 EDT Fourth Generation assay performed on the Siemens Centaur XPT. Performing Organization Address City/State/ZIP Code Phon e Number [facility] [address] [place] [address] SERVICES FSH (03/09/2022 13:35 EDT) Pathologist Sig nature FSH 6.6 See Note mIU/mL [facility] SERVICES Specimen Blood - Venous blood (substance) Narrative [facility] SERVICES - 03/09/2022 23:00 EDT NOTE: Female FSH Reference Ranges (>= 13 [...] have not been established. Performing Organization Address City/[facility] Phon e Number [facility] [address] [place] [address] SERVICES CHLAMYDIA/N. GONORRHOEAE AMPLIFIED RNA (03/07/2022 13:30 EDT) Pathologist Sig nature Gonococcus Result Negative Negative [facility] SERVICES Chlamydia Result Negative Negative [facility] SERVICES Specimen Urine - Urine, Dirty Urine Narrative [facility] SERVICES - 03/10/2022 8:39 EDT A first catch urine specimen is acceptab le for detection of Gonorrhea and Chlamydia, but might detect up to 10% fewer infecti ons when compared with vaginal and endocervical swab samples. Performing Organization Address City/State/[facility] Phon e Number [facility] [address] [place] [address] SERVICES from Last 3 Months Care Teams Commercial Collections Specialist Relationship Specialty Start Date End Date Ailyn Wells NP PCP - General 05/02/[address] [place] [phone]
--- OUTSIDE RECORDS SUMMARY | 2022-03-21 18:45 | XMS_ITS | Encounter Summary ---
:1985 Author Organization [facility] Address [address] [place] [address] Care Team Providers Name Role Phone None, Provider Primary Care Provider Unavailable Encounter Details Date Type Department Care Team Description 08/08/2013 Results Only [facility] Luis Felipe Vaz MD [phone] [place] [address] Social History Tobacco Use Types Packs/Day Years Used Date Never Assessed Sex Assigned at Date Recorded Not on file documented as of this encounter Plan of Treatment Not on filedocumented as of this encounter Procedures Procedure Name Priority Date/Time Associated Diagnosis Comme [facility] SURGICAL PATHOLOGY Routine 08/08/2013 8:32 EST Re sults for this procedure are i n the results section. documented in this encounter Results SURGICAL PATHOLOGY (08/08/2013 8:32 EST) Pathology Report: SURGICAL PATHOLOGY REPORT [facility] Reports generated via electronic interface contain jeannie ginal data; LAB however they are lacking the format of the original re port. Caution should be taken when reading/interpreting unfo rmatted reports. Name: ? BRIAN PACKER ? Accession #: ? [id number] ? : ? 1985 (Age: 27) ??F ? Collect Date: ? 08/08/2013 ? Location: ? [facility] ? Receive Date: ? 013 ? Provider: LUIS FELIPE VAZ MD Copy to: ? Final Pathologic Diagnosis: A. ENDOCERVIX, CURETTAGE: - ??Detached fragments of high grade squ amous intraepithelial lesion (HAYLEY II). - ??Fragments of endocervical glands and stroma. B. ECTOCERVIX, 7 O'CLOCK, BIOPSY: - ??Squamous mucosa with reactive change. - ??Negative for dysplasia. C. ECTOCERVIX, 4:30 O'CLOCK, BIOPSY: - ??High grade squamous intraepithelial lesion (HAYLEY II ). Document reviewed and electronically signed by: AD HOLLAND MD Report ??Date: 08/13/2013 11:18 By the signature above, the attending physician certif ies that he/she has personally conducted a gross and/or microscopic examin ation of the described specimens and rendered or confirmed the above diagnosi s. Specimen(s) Received: A. ??ECC (#1) B. ??Ectocervical biopsy #1 7 o'clock position (#2) C. ??Ectocervical biopsy #2 4:30 o'clock position (#3) Clinical History: LSIL Gross Description: A. ?Received in formalin labelled with proper p atient identification (initials C, B) and ECC is an aggregate of hameed tissue admixed with mucus (0.7 x 0.7 x 0.2 cm). Submitted in toto in A1. B. ?Received in formalin labelled with proper p atient identification (initials C, B) and ectocer vix 7 o'clock are two pink-white tissues (0.4 x 0.1 x 0.1 cm and 0.4 x 0.3 x 0.1 cm). Entirely submitted i n B1. C. ?Received in formalin labelled with proper p atient identification (initials C, B) and ectocer vix 4:30 o'clock are two cook-white tissues (0.4 x 0.1 x 0.1 cm and 0.7 x 0.5 x 0.2 cm). ??The larger pie ce is bisected and submitted in C1 and the smaller piece is submitted int act in C2. Maura Rosas 08/09/2013 09:49 AM End of Report Specimen Performing Organization Address City/State/ZIP Code Phon e Number [facility] [address] [place] [address] SERVICES [facility] [address] [place] [address] documented in this encounter Visit Diagnoses Not on filedocumented in this encounter Care Teams Cleaning Specialist Relationship Specialty Start Date End Date None, Provider PCP - General 07/03/13 08/12/13 documented as of this encounter
--- OUTSIDE RECORDS SUMMARY | 2022-03-21 18:45 | XMS_ITS | Encounter Summary ---
:1985 Author Organization [facility] Address [address] [place] [address] Care Team Providers Name Role Phone None, Provider Primary Care Provider Unavailable Encounter Details Date Type Department Care Team Description 04/22/2014 Results Only [facility] Jose Silva, [facility] Laboratory Services - [address] [place] Avalos [place], [place] [address] [facility] [address] [place] [address] [phone] Social History Tobacco Use Types Packs/Day Years Used Date Never Assessed Sex Assigned at Date Recorded Not on file documented as of this encounter Plan of Treatment Not on filedocumented as of this encounter Procedures Procedure Name Priority Date/Time Associated Diagnosis Comme nts PAP TEST- RESULT Routine 04/22/2014 0:00 EDT Resu lts for this ONLY procedure are i n the results section. documented in this encounter Results PAP TEST- RESULT ONLY (04/22/2014 0:00 EDT) Pathology Report: CYTOPATHOLOGY REPORT [facility] Reports generated via electronic interface contain jeannie ginal data; however they are lacking the format of the original re port. Caution should be taken when reading/interpreting unfo rmatted reports. Name: ? GABI PACKER ? Accession #: ? [id number] : ? 1985 (Age: 28) ??F ?Collect Date: ? 01/2014 Location: ? [facility] ? Receive Date : ? 04/23/2014 Provider: ?NEREIDA SILVA BOX INSPECTOR Copy to: ?KANDICE BROWN FITNESS MANAGER ? Specimen/Source: ? Pap Test, Source Not Provided, ThinPrep Imaging System with manual evaluation Last Menstrual Period: ? Hormonal/Contraceptive Status: ? Depo-Provera Previous Gynecologic Pathology: ? HAYLEY II: Hx 07/2013 Treatment History: ? LEEP: Bx ? SPECIMEN ADEQUACY ? Satisfactory for Evaluation - transformation zone component present GENERAL CATEGORIZATION ? Epithelial Cell Abnormality INTERPRETATION ? Squamous Cell Abnormality - Low grade squamous intraepithelial lesion (LSIL). Shift in praveena present suggestive of bacterial vaginos is. EDUCATIONAL NOTES/RECOMMENDATIONS ? [facility] recommends korey lopez ASCCP's 2012 Updated Consensus Guidelines for the Management of Abnormal Cervical Cancer Screening T ests and Cancer Precursors (JLGTD, 2013; 17(5):S1-S27). ??Conse nsus guidelines are available online at www.asccp.org. ? Document reviewed and electronically signed by: ? MARY ANNE MARTINS MD [facility] ? Report Date: ??05/01/2014 13:18 End of Report Specimen Performing Organization Address City/State/ZIP Code Phon e Number [facility] [address] [place] [address] SERVICES [facility] [address] [place] [address] documented in this encounter Visit Diagnoses Not on filedocumented in this encounter Care Teams Police Artist Relationship Specialty Start Date End Date None, Provider PCP - General 09/13/13 05/01/14 documented as of this encounter
--- OUTSIDE RECORDS SUMMARY | 2022-03-21 18:45 | XMS_ITS | Encounter Summary ---
:1985 Author Organization [facility] Address [address] [place] [address] Care Team Providers Name Role Phone Unknown, Provider Primary Care Provider Encounter Details Date Type Department Care Team Description 09/05/2013 Hospital Encounter [facility] [place] Unknown, Provider, [facility] [address] [facility] [phone] [place] [address] (Work) [phone] Social History Tobacco Use Types Packs/Day Years Used Date Never Assessed Sex Assigned at Date Recorded Not on file documented as of this encounter Discharge Disposition Disposition Code Departure Means Destination Home or Self Detention documented in this encounter Plan of Treatment Not on filedocumented as of this encounter Visit Diagnoses Not on filedocumented in this encounter Care Teams Celery Cutter Relationship Specialty Start Date End Date Unknown, Provider, PCP - General 08/13/13 09/12/13 documented as of this encounter
--- OUTSIDE RECORDS SUMMARY | 2022-03-21 18:45 | XMS_ITS | Encounter Summary ---
:1985 Author Organization [facility] Address [address] [place] [address] Care Team Providers Name Role Phone Ailyn Wells Alejandro TRAPEZE PERFORMER Primary Care Provider Encounter Details Date Type Department Care Team Description 09/21/2015 Results Only [facility]- Tia Jackson CNM [phone] [address] (Wo rk) Social History Tobacco Use Types Packs/Day Years Used Date Never Assessed Sex Assigned at Date Recorded Not on file documented as of this encounter Plan of Treatment Not on filedocumented as of this encounter Procedures Procedure Name Priority Date/Time Associated Diagnosis Comme nts PAP TEST- RESULT Routine 09/21/2015 0:00 EST Resu lts for this ONLY procedure are i n the results section. documented in this encounter Results PAP TEST- RESULT ONLY (09/21/2015 0:00 EST) Pathology Report: CYTOPATHOLOGY REPORT [facility] Reports generated via electronic interface contain jeannie ginal data; SERVICES however they are lacking the format of the original re port. Caution should be taken when reading/interpreting unfo rmatted reports. Name: ? BRIAN PACKER ? Accession #: ? [id number] ? : ? 1985 (Age: [age]) ??F ?Collect Date: ? 2015 ? Location: ? [facility] ? Receive Date: ? 6 ? Provider: [facility] Copy to: SITA PASTRANA TRAPEZE PERFORMER ? Final Report SPECIMEN ADEQUACY ? Satisfactory for Evaluation - transformation zone component absent GENERAL CATEGORIZATION ? Negative for Intraepithelial Lesion or Malignan cy INTERPRETATION ? Shift in praveena present suggestive of bacterial vaginosis. Last Menstrual Period: 08/12/2015 Menstrual/ Status: ?? Previous Gynecologic Pathology: LSIL: 04/22/2014 Specimen/Source: ??Pap Test, Cervix, ThinPrep Imaging System with manual evaluation Document reviewed and electronically signed by: ? Sujit Marmolejo, CT(ASCP) ? Report ??Date: 09/23/2015 13:50 HPV with Pap Test ? Date Ordered: ? 09/23/2015 ? Status: ?? S igned Out ?Date Complete: ? 09/25/2015 ? By: ??Sys tem Interface ? Date Reported: ? 09/25/2015 ? Interpretation RESULT: Negative for HPV. No E6 or E7 mRNA is detected from HPV types 16,18,31,3 3,35, 39,45,51,52,56,58,59,66, and 68 by die engraver media osiel amplification. Comments Document reviewed and electronically signed by: ? System Interface ? Report date: 09/25/2015 By the signature above, the attending physician certif ies that he/she has personally conducted a gross and/or microscopic examin ation of the described specimens and rendered or confirmed the above diagnosi s. End of Report Specimen Performing Organization Address City/State/ZIP Code Phon e Number [facility] [address] [place] [address] SERVICES documented in this encounter Visit Diagnoses Not on filedocumented in this encounter Care Teams Dry Drug Worker Relationship Specialty Start Date End Date Ailyn Wells, TRAPEZE PERFORMER PCP - General 05/02/[address] [place] [phone] documented as of this encounter
--- OUTSIDE RECORDS SUMMARY | 2022-03-21 18:45 | XMS_ITS | Encounter Summary ---
:1985 Author Organization Address [address] [place] [address] Care Team Providers Name Role Phone Unknown, Provider Primary Care Provider Encounter Details Date Type Department Care Team Description 06/17/2013 Results Only [facility] Tia Jaramillo CNM Laboratory Services - [address] [place] [address] [address] [facility] [place] [address] [phone] Social History Tobacco Use Types Packs/Day Years Used Date Never Assessed Sex Assigned at Date Recorded Not on file documented as of this encounter Plan of Treatment Not on filedocumented as of this encounter Procedures Procedure Name Priority Date/Time Associated Diagnosis Comme nts PAP TEST- RESULT Routine 06/17/2013 0:00 EDT Resu lts for this ONLY procedure are i n the results section. documented in this encounter Results PAP TEST- RESULT ONLY (06/17/2013 0:00 EDT) Pathology Report: CYTOPATHOLOGY REPORT [facility] Reports generated via electronic interface contain jeannie ginal data; however they are lacking the format of the original re port. Caution should be taken when reading/interpreting unfo rmatted reports. Name: ? BRIAN PACKER ? Accession #: ? [id number] ? : ? 1985 (Age: 27) ??F ?Collect Da te: ? 06/17/2013 ? Location: ? [facility] ? Receive Date: ? 013 ? Provider: TIA JARAMILLO CNM Copy to: ? Final Report SPECIMEN ADEQUACY ? Satisfactory for Evaluation - transformation zone component present GENERAL CATEGORIZATION ? Epithelial Cell Abnormality INTERPRETATION ? Squamous Cell Abnormality - Low grade squamous intraepithelial lesion (LSIL). EDUCATIONAL NOTES/RECOMMENDATIONS ? FOR[facility]LY [facility] recommends korey lopez ASCCP's 2012 Updated Consensus Guidelines for the Management of Abnormal Cervical Cancer Screening T ests and Cancer Precursors (JLGTD, 2013; 17(5):S1-S27). ??Conse nsus guidelines are available online at www.asccp.org. Hormonal/Contraceptive status: Intrauterine device: NC ROSEANNE Specimen/Source: ??Pap Test, Cervix/Endocervix, ThinPr ep Imaging System with manual evaluation Document reviewed and electronically signed by: ? MAAME CROUCH MD ? Report ??Date: 06/25/2013 13:45 HPV with Pap Test ? Date Ordered: ? 06/25/2013 ? Status: ?? Signed Out ?Date Complete: ? 06/27/2013 ? By: ??S ystem Interface ? Date Reported: ? 06/27/2013 ? Interpretation RESULT: Positive for high or intermediate risk HPV. E6 OR E7 mRNA from one or more types of HPV types 16,1 8,31, 33,35,39,45,51,52,56,58,59,66, and 68 is detected by sweet pickle maker mediated amplification. High and intermediate risk HPV types are associated wi th most squamous intraepithelial lesions and cervical can cers. Comments Document reviewed and electronically signed by: ? System Interface ? Report date: 06/27/2013 By the signature above, the attending physician certif ies that he/she has personally conducted a gross and/or microscopic examin ation of the described specimens and rendered or confirmed the above diagnosi s. End of Report Specimen Performing Organization Address City/State/ZIP Code Phon e Number [facility] [address] [place] [address] SERVICES [facility] [address] [place] [address] documented in this encounter Visit Diagnoses Not on filedocumented in this encounter Care Teams Staffing Assistant Relationship Specialty Start Date End Date Unknown, Provider, PCP - General 02/17/09 07/02/13 documented as of this encounter
--- OUTSIDE RECORDS SUMMARY | 2022-03-21 18:45 | XMS_ITS | Encounter Summary ---
:[address] [facility] Address [address] [place] [address] Care Team Providers Name Role Phone Unavailable Primary Care Provider Unavailable Encounter Details Date Type Department Care Team Description 05/29/2006 Hospital Encounter [facility] - Tia Garcia CNM Other [address] [place] [phone] (Wo rk) Social History Tobacco Use Types Packs/Day Years Used Date Never Assessed Sex Assigned at Date Recorded Not on file documented as of this encounter Discharge Disposition Disposition Code Departure Means Destination Auto Discharge documented in this encounter Plan of Treatment Not on filedocumented as of this encounter Visit Diagnoses Not on filedocumented in this encounter
--- OUTSIDE RECORDS SUMMARY | 2022-03-21 18:45 | XMS_ITS | Encounter Summary ---
:1985 Author Organization [facility] Address [address] [place] [address] Care Team Providers Name Role Phone Ailyn Wells DRY TALC RACKER Primary Care Provider Encounter Details Date Type Department Care Team Description 03/07/2022 Lab Requisition [facility] Outr Resulting Lab, Pathology & Laboratory Provider [facility] [address] [phone] Social History Tobacco Use Types Packs/Day Years Used Date Never Assessed Sex Assigned at Date Recorded Not on file documented as of this encounter Plan of Treatment Not on filedocumented as of this encounter Procedures Procedure Name Priority Date/Time Associated Comments Diagnosis CHLAMYDIA/N. Routine 03/07/2022 13:30 Results for this GONORRHOEAE AMPLIFIED EDT proced ure are in RNA the results section. documented in this encounter Results CHLAMYDIA/N. GONORRHOEAE AMPLIFIED RNA (03/07/2022 13:30 EDT) Pathologist Sig nature Gonococcus Result Negative Negative [facility] Chlamydia Result Negative Negative [facility] Specimen Urine - Urine, Dirty Urine Narrative [facility] - 03/10/2022 8:39 EDT A first catch urine specimen is acceptab le for detection of Gonorrhea and Chlamydia, but might detect up to 10% fewer infecti ons when compared with vaginal and endocervical swab samples. Performing Organization Address City/State/ZIP Code Phon e Number [facility] [address] [place] [address] SERVICES documented in this encounter Visit Diagnoses Not on filedocumented in this encounter Care Teams Train Operations Supervisor Relationship Specialty Start Date End Date Ailyn Wells, DRY TALC RACKER PCP - General 05/02/14 [address] [facility] [address] [place] [phone] documented as of this encounter
--- NOTE | 2022-03-21 18:55 | ED.GENADUL_ITS ---
Discharge Plan Disposition Patient Disposition: HOME Condition: Stable Discharge Details Clinical Impression: Colitis, Nausea & vomiting Primary Care Provider: Argentina Rubalcava ED Provider: Lisette Lanza Home Meds and New Rx's Prescriptions: Continued omeprazole 20 mg capsule,delayed release(DR/EC) 20 mg PO DAILY levonorgestrel-ethinyl estrad 0.1-20 mg-mcg tablet 1 tab PO DAILY Qty: 84 4RF trazodone 100 mg tablet 100 mg PO QHS albuterol sulfate [ProAir HFA] 90 mcg/actuation HFA aerosol inhaler 2 puff inhalation Q6H PRN budesonide-formoterol [Symbicort] 80-4.5 mcg/actuation HFA aerosol inhaler 1 puff inhalation BID levothyroxine 50 mcg tablet 50 mcg PO DAILY gabapentin 300 mg capsule 300 mg PO TID methadone 10 mg tablet 64 mg PO DAILY clonidine HCl 0.1 mg tablet Label Comments: TAKE ONE TABLET BY MOUTH AT BEDTIME Discharge Instructions Instructions: Acute Nausea and Vomiting (ED) Additional Instructions: Take the nausea medication 20 to 30 minutes prior to eating or drinking anything. Follow up with primary care provider in 3-5 days. Return to ED sooner if any worsening or concerns. Increase oral fluids. Please take Tylenol or Ibuprofen with food every 4-6 hours as needed for pain an d swelling. Referrals: Argentina Rubalcava [Primary Care Provider] - 5 days Discharge Data Discharge Date/Time-TO BE ENTERED AT DEPARTURE: 03/21/22 22:15 Medical Decision Making CBC, CMP, lipase ordered urinalysis urine drug screen IV CBC shows leukocytosis white blood cell count 14.31, absolute absolute neutrophils 12.95, anion gap 13.9, magnesium low 1.6 alk phos 34, trace ketones negative for leukocytes or nitrites. Urine drug screen is positive for THC. Negative for all other drugs. We will give 4 mg magnesium p.o. Liter normal saline. 2144: Patient reevaluation. She reports feeling much better. She is drinking ice water with no difficulty. I did discuss CT result and labs with her she verbalized understanding. CT shows constipation subtle fat stranding around the right colon suggestive of localized colitis. No bowel obstruction no evidence of appendicitis. Lab Data Lab results reviewed: Yes I reviewed the patient's lab results. HPI General Mode of arrival: EMS . Date/Time Provider Initiated Documentation: 03/21/22 18:38 . Limitations to Documentation: other (Patient appears sleepy, hesitant to answer questions) . Information obtained by: patient, EMS, RN notes reviewed and old records reviewed . HPI Narrative: 36-year-old female presents to the ER with chief complaint of nausea vomiting which began at 8:00 this morning. She also reports fever and chills. No documented temperature per EMS patient is afebrile here. Patient appears sleepy. She has generalized abdominal pain. She also reports that her throat hurts. She has a past medical history of pyelonephritis, narcotic addiction, opioid use disorder in remission she does take methadone for this, last dose was yesterday., Amennorhia, anxiety depression, hep C. She does endorse smoking marijuana denies any drugs or alcohol she reports she is been sober for the last 2 years. She was recently placed on control tablets on 07 March. Surgical history includes umbilical hernia repair and a LEEP procedure. Related Data Home Medications Medication Instructions Recorded Confirmed omeprazole 20 mg capsule,delayed 20 mg PO DAILY 07/01/21 03/21/22 release albuterol sulfate 90 mcg/actuation 2 puff inhalation Q6H PRN 08/27/21 03/21/22 aerosol inhaler (ProAir HFA) budesonide-formoterol HFA 80 1 puff inhalation BID 08/27/21 03/21/22 mcg-4.5 mcg/actuation aerosol inhaler (Symbicort) gabapentin 300 mg capsule 300 mg PO TID 08/27/21 03/21/22 levothyroxine 50 mcg tablet 50 mcg PO DAILY 08/27/21 03/21/22 levonorgestrel-ethinyl estradiol 1 tab PO DAILY #84 tabs 03/07/22 03/21/22 0.1 mg-20 mcg tablet methadone 10 mg tablet 64 mg PO DAILY 03/07/22 03/21/22 trazodone 100 mg tablet 100 mg PO QHS 03/07/22 03/21/22 clonidine HCl 0.1 mg tablet tab 03/21/22 03/21/22 Previous Rx's Medication Instructions Recorded levonorgestrel-ethinyl estradiol 1 tab PO DAILY #84 tabs 03/07/22 0.1 mg-20 mcg tablet Allergies Allergy/AdvReac Type Severity Reaction Status Date / Time No Known Drug Allergies Allergy none Verified 03/21/22 18:38 General Stated Complaint: Abd Prob ALONA: 3 Review of Systems All systems reviewed & are unremarkable except as noted in HPI and below Constitutional Constitutional: Reports as per HPI, Reports daytime sleepiness, Reports fatigue and Reports fever(s) (Subjective) Cardiovascular Cardiovascular: Denies chest pain and Denies dyspnea Respiratory Respiratory: Denies cough and Denies dyspnea Gastrointestinal Gastrointestinal: Reports abdominal pain, Reports cramping, Reports nausea and Reports vomiting Genitourinary Genitourinary: Reports flank pain (Left CVA tenderness) and Reports other (Patient is not answering my questions if she is having dysuria) Endocrine Endocrine: Reports fatigue PFSH All Active Problems (Updated 03/21/22 @ 21:51 by Lisette Lanza NP) Colitis (Acute) Nausea & vomiting (Acute) Chest pain (Acute) Cocaine abuse (Acute) Amenorrhea (Acute) Spotting (Acute) Tobacco use (Acute 10/15/15) Anxiety (Acute 12/16/15) Hepatitis C antibody test positive (Acute 10/15/15) Nl LFTs. Undetectable viral load. Opioid use disorder, mild, in early remission, on maintenance therapy (Acute 10/15/15) Thru BARRT since 12/2014. 75mg/day. Wants to wean down in 2016. Personal history of cervical dysplasia (Acute 09/17/15) HAYLEY II 2013 Pyelonephritis (Acute 02/11/15) right sided Narcotic addiction (Acute 02/11/15) a. on methadone via [facility] health services Substance abuse in remission (Chronic) a. h/o IV drug abuse, clean x 2 months b. s/p inpatient rehab program, 12/2014 Cervical dysplasia (Chronic) a. s/p LEEP 09/2013, LGISL 04/2014 Thyromegaly (Chronic) Anxiety and depression (Chronic) oligohydramnios & iugr in 2006 (Chronic) Tobacco abuse (Chronic) 1/2 PPD Medical History Abnormal Pap smear of vagina Anxiety and depression Bilateral carpal tunnel syndrome Cervical dysplasia s/p LEEP 2013. 2015 Nl Pap/HPV. Drug induced constipation GERD (gastroesophageal reflux disease) Glucose intolerance of 2016. Pt did not test CBGs or follow dietary counseling during . 2hr GTT____ Hand numbness Hepatitis C antibody test positive 2015. Undetectable viral load. Hepatitis C, chronic Heroin abuse 12/2014 currently on Methadone maintenance. History of depression History of heroin abuse History of complication 2006 IOL 34w EGA @ [facility] [place]. 2015 . IOL @33w for severe preeclampsia. [facility] History of pyelonephritis (~2014) during 2nd . chronic suppression during . Hypothyroidism Insomnia Screen for STD (sexually transmitted disease) Shortness of breath Skin infection Stimulant abuse Tobacco use UTI (urinary tract infection) Surgical History Cervical Conization/LEEP LEEP. Repair of umbilical hernia in childhood Social History Smoking/Tobacco Use Status: Current every day Smoking risk assessment performed?: Yes Alcohol Intake: current Alcohol Intake frequency: holidays/special occasions only Drug use: Daily Substance use type: marijuana Details: Patient unable to answer at this time. Do you feel safe at home: Yes Do you feel safe in your relationship?: Yes Female Reproductive History Menstrual Age of Menarche: 15 Duration of menses: 3-5 days control method: none History History 3 Para 2 Hx # Term Pregnancies Multiple births Hx # Pregnancies Ectopic pregnancies AB induced Hx Number of Living Children AB spontaneous Past Pregnancies Del. Date GA/Weeks # Preg Succ Route Wgt Sex Labor Lgth Anesth esia Location [facility] 09/29/06 34 No Yes vaginal 2296.311 g Female 04/05/17 34 No Yes vaginal 2182.913 g Female Delivery Date: 09/29/06 Last Updated by: Sofie Eagle- baby in [facility] for 3 weeks d/t prematurity Delivery Date: 04/05/17 Last Updated by: Sofie Rojas- delivered at [facility], kept for prematurity for three weeks. Exam Narrative Exam Narrative: Constitutional: Alert and oriented x2. Appears stated age. Normal body habitus. Patient is poor historian she refuses to answer. She does appear sleepy. Response to verbal Head: Normocephalic, no trauma. Eyes: Pupils PERRL, Red reflex noted, EOM's intact. Eyelids symmetrical without lesions, discharge, or swelling. ENT: Bilateral TM's WNL, External ear normal to inspection, no mastoid TTP, swelling, or erythema, Nasal turbinates WNL, no nasal discharge. Normal dentition, Posterior pharynx not visualized due to patient not able to open her mouth. Chest: RRR, Normal S1, S2, distal pulses intact. Resp: Lungs clear to auscultation bilaterally, no wheezes, rales, or rhonchi. Abdomen: Soft, non-distended, generalized tenderness all 4 quadrants no masses palpated. Musculoskeletal: Normal gait, 5/5 strength to all four extremities. Skin: Lesions noted to her right forearm. Leg cordoba. No surrounding erythema or induration no drainage,. Capillary refill less than 2 sec. Neurologic: Cranial nerves II-XII intact. Alert and oriented x 3. Motor: No deficits noted. Sensory: Intact bilaterally all 4 extremities. Reflexes: DTR's intact bilaterally.. Hematologic/Lymphatic: No ecchymosis, no lymphadenopathy. Course Vital Signs Vital signs: Vital Signs Temperature 36.7 C 03/21/22 18:34 Pulse 82 03/21/22 18:34 Respiratory Rate 14 03/21/22 18:34 Blood Pressure 148/85 H 03/21/22 18:34 Pulse Oximetry 98 03/21/22 18:34 Temperature 36.7 C 03/21/22 18:34 Temperature Source Temporal Artery Scan 03/21/22 18:34 Pulse 82 03/21/22 18:34 Respiratory Rate 14 03/21/22 18:34 Respiratory Effort Non-Labored 03/21/22 18:41 Blood Pressure 148/85 H 03/21/22 18:34 Blood Pressure Position Supine 03/21/22 18:34 Pulse Oximetry 98 03/21/22 18:34 Oxygen Delivery Method Room Air 03/21/22 18:34 Oxygen Flow Rate 0 03/21/22 18:34 Pain Level 10 03/21/22 18:34 PAWSS Have you Been Recently Intoxicated or Drunk Within the Last 30 days?: No Have you Ever Experienced Previous Episodes of Alcohol Withdrawal?: No Have you ever Experienced Withdrawal Seizures?: No Have you ever Experienced Delirium Tremens(DT)s?: No Have you ever undergone Alcohol Rehabilitation Treatment (i.e, inpt ot outpatient treatment programs)?: No Have you ever Experienced Blackouts?: No Have you ever Combined Alcohol with other Downers within the last 90 days?: No Have you ever Combined Alcohol with any other Substance of Abuse during the last 90 days?: No Positive Blood Alcohol level on Presentation? [PCS.BAL]: No Evidence of Increased Autonomic Activity (i.e. HR>120, tremor, sweating, agitation, nausea)?: No Result: 0
[2022-03-21 19:46] LABS: Bilirubin Negative (Negative); Blood Negative (Negative); Clarity Clear (Clear); Glucose Negative (Negative); Ketones Trace mg/dL (Negative); Leukocyte Esterase Negative (Negative); Nitrite Negative (Negative); Specific Gravity 1.015 (1.005-1.025); Urobilinogen 0.2 EU/dL (Up TO 0.2); pH 8.5 (5-8)
[2022-03-21 19:55] LABS: Bacteria Negative HPF (Negative); C & S Indicated? No; Casts Negative LPF (Negative); Crystals Negative HPF (Negative); Epithelial Cells Negative HPF (Negative); Mucus Negative (Negative); Other Cells Negative (Negative); RBC 0-2 HPF (0-2)
[2022-03-21 20:03] LABS: Abs Immature Grans 0.05 10^3/uL (0.0-0.06); Absolute Lymphocyte Count 1.13 10^3/uL (1.2-3.4); Absolute Monocyte Count 0.17 10^3/uL (0.1-0.8); Basophils % 0.1; HCT 39.4 % (36.0-46.0); HGB 12.8 g/dL (11.2-15.7); Immature Grans % 0.3; Lymphocytes % 7.9; MCH 29.4 pg (27.0-33.0); MCHC 32.5 % (32.0-36.0); MCV 90 fL (80-95); MPV 9.7 fL (8.0-11.0); Monocytes % 1.2; Neutrophils % 90.5; Platelet Count 368 10^3/uL (130-400); RBC 4.36 10^6/uL (3.93-5.22); RDW-SD 46.5 fL; WBC 14.31 10^3/uL (4.4-10.8)
[2022-03-21 20:03] LABS: *AMPHETAMINES SCREEN URINE Negative (Negative); *BARBITURATES SCREEN URINE Negative (Negative); *BENZODIAZEPINES SCREEN URINE Negative (Negative); Cannabinoids THC Positive (Negative); Cocaine Screen,Urine Negative (Negative); METHADONE URINE SCREEN Negative (Negative); OPIATES URINE SCREEN Negative (Negative)
[2022-03-21 20:04] LABS: Tricyclic Antidepressants Negative (Negative)
[2022-03-21 20:05] LABS: Absolute Basophil Count 0.01 10^3/uL (0.0-0.2); Absolute Neutrophil Count 12.95 10^3/uL (1.2-6.7)
--- NOTE | 2022-03-21 20:15 | DI.CT_ITS ---
Exam(s) CT ABDOMEN PELVIS WO EXAM: CT ABDOMEN PELVIS WO CLINICAL HISTORY: Abd Pain N/V. TECHNIQUE: Imaging Protocol: Axial computed tomography images with coronal and sagittal reformatted images were created and reviewed CONTRAST MATERIAL: Intravenous: none Oral: None FINDINGS: VISUALIZED LUNG BASES: No nodules nor pleural effusions evident. ABDOMEN: There is no ascites. LIVER: There is significant hepatic steatosis. This has significantly increased when compared to dipak or CT scan of 2018. Liver size is slightly prominent. No discrete focal hepatic lesions identified on this noninfused study. GALLBLADDER/BILIARY: No obvious gallbladder pathology. CBD is not dilated. PANCREAS: No evidence of pancreatic mass nor dilatation of the pancreatic duct. SPLEEN: Spleen is not enlarged. No obvious intrasplenic lesions. ADRENALS: There are no significant adrenal masses. KIDNEYS:No cysts evident. No solid renal masses. No calculi nor hydronephrosis. . ABDOMINAL AORTA: Abdominal aorta is not enlarged. LYMPH NODES: There is no retroperitoneal nor paraaortic adenopathy. ABDOMINAL WALL: No evidence of significant anterior abdominal wall nor inguinal hernia. GI: There is no evidence of bowel obstruction, free air, nor abscess. PELVIS: LYMPH NODES: There is no intrapelvic nor inguinal adenopathy. GI: No evidence of acute appendicitis.No evidence of sigmoid diverticulitis. URINARY BLADDER: No calculi nor obvious masses evident REPRODUCTIVE: Uterus and adnexal regions appear unremarkable. No free fluid in the pelvis. OSSEOUS: No significant osseous lesions. IMPRESSION: 1. Compared to the prior CT scan of May 2018 there is now significant hepatic steatosis. Liver also appears slightly increased in size. Correlation with appropriate hepatic blood work recommende d to rule out hepatitis and other pathologies of the liver. There are no obvious discrete focal hepa tic lesions evident on this noninfused study there is no ascites. 2. No evidence of bowel obstruction. No free air. 3. RADIATION DOSE DELIVERED: 852.3mGy.cm Total DLP DATA REPOSITORY: All CT scans at this facility are submitted to the National Radiology Data Registry (NRDR) Dose Index Registry (DIR) with the [employer] (ACR). RADIATION OPTIMIZATION: All CT scans at this facility use at least one of these dose optimization te chniques: automated exposure control; mA and/or kV adjustment per patient size (includes targeted exa ms where dose is matched to clinical indication); or iterative reconstruction.
[2022-03-21 20:16] LABS: ALT 42 U/L (14-59); AST 23 U/L (15-37); Albumin 3.4 g/dL (3.4-5.0); Alkaline Phosphatase 34 U/L (46-116); Anion Gap 13.9 mmol/L (3-11); BUN 13 mg/dL (7-18); Bilirubin, Total 0.3 mg/dL (0.2-1.0); CO2 23.1 mmol/L (21.0-32.0); CREATININE 0.9 mg/dL (0.55-1.02); Calcium 8.8 mg/dL (8.5-10.1); Chloride 100 mmol/L (98-107); Glucose 102 mg/dL (74-106); Lipase 56 U/L (73-393); Magnesium 1.6 mg/dL (1.8-2.4); Potassium 3.9 mmol/L (3.5-5.1); Sodium 137 mmol/L (136-145); Total Protein 8.2 g/dL (6.4-8.2)
[2022-03-21] MEDS: Normal Saline 1,000 ML 1000 ML IV (20:16)
[2022-03-21] MEDS: Ondansetron O.D.T. 4 MG TABEF PO (20:55)
[2022-03-21] MEDS: Magnesium Oxide 400 MG TAB PO (20:58)
--- NOTE | 2022-03-21 21:09 | DI.VRAD_ITS ---
PROCEDURE INFORMATION: Exam: CT Abdomen And Pelvis Without Contrast Exam date and time: 03/21/2022 8:45 PM Age: 36 years old Clinical indication: Other: Abd pain, nausea, vomiting TECHNIQUE: Imaging protocol: Computed tomography of the abdomen and pelvis without contrast. Radiation optimization: All CT scans at this facility use at least one of these dose optimization techniques: automated exposure control; mA and/or kV adjustment per patient size (includes targeted exams where dose is matched to clinical indication); or iterative reconstruction. COMPARISON: CT Abdomen^ROUTINE ABDOMEN PELVIS WITH CONTRAST (Adult) 06/14/2018 12:58 PM FINDINGS: Liver: There is diffuse decrease in hepatic parenchymal density, consistent with severe fatty infiltration. No mass. Gallbladder and bile ducts: Normal. No calcified stones. No ductal dilation. Pancreas: Normal. No ductal dilation. Spleen: Normal. No splenomegaly. Adrenal glands: Normal. No mass. Kidneys and ureters: No radiopaque renal or ureteric calculi. No hydronephrosis. Stomach and bowel: Stomach incompletely distended, limiting evaluation. No dilated loops of small bowel or colonic dilatation. There is a moderate amount of stool in the colon. Subtle fat stranding about right colon. Appendix: No evidence of appendicitis. Intraperitoneal space: Unremarkable. No free air. No significant fluid collection. Vasculature: Unremarkable. No abdominal aortic aneurysm. Lymph nodes: Unremarkable. No enlarged lymph nodes. Urinary bladder: Unremarkable as visualized. Reproductive: Unremarkable as visualized. Bones/joints: Unremarkable. No acute fracture. Soft tissues: Unremarkable. IMPRESSION: 1. Subtle fat stranding about it about right colon could be due to localized colitis. 2. No bowel obstruction. 3. Severe hepatic steatosis. Dictated and Authenticated by: Robbie Dumont MD. Ordering:MOR Knox MD
[2022-03-21 22:05] VITALS: BP 140/76; PULSE 78; RESP 16; O2SAT 98
[2022-03-21] MEDS: Ondansetron O.D.T. 4 MG TABEF, 3 TABS/BTL PO (22:10)
== END 2022-03-21 22:15 | disposition home or self-care (01) ==
PROVIDERS: Emergency Provider Registered Nurse Emergency; PCP Nurse Practitioner Family
DX: K52.9 Noninfective gastroenteritis and colitis, unspecified (principal); D72.829 Elevated white blood cell count, unspecified; K59.00 Constipation, unspecified; F17.200 Nicotine dependence, unspecified, uncomplicated; L98.9 Disorder of the skin and subcutaneous tissue, unspecified
CPT/HCPCS: 80053; 80307; 81025; 83690; 96360; 99284; 74176; 81003; 81015; 83735; 85025

== ENCOUNTER 2022-05-11 14:33 | Outpatient (REF) | payer MEDICAID, SELFPAY ==
[2022-05-11 16:44] LABS: TSH (W/Ref FT4) 10.71 uIU/mL (0.36-3.74)
[2022-05-11 17:06] LABS: FREE T4 0.77 ng/dL (0.76-1.46)
== END 2022-05-11 14:34 | disposition home or self-care (01) ==
LOC: NCHCN 14:33
PROVIDERS: PCP Nurse Practitioner Family; Visit Provider Nurse Practitioner Family
DX: E03.9 Hypothyroidism, unspecified (principal)
CPT/HCPCS: 84439; 84443

== ENCOUNTER 2022-05-19 09:40 | Emergency (ER) | payer MEDICAID, SELFPAY ==
[2022-05-19 09:54] VITALS: BP 174/91; PULSE 70; RESP 16; TEMP 36.2; O2SAT 96
[2022-05-19 10:11] VITALS: RESP 23
[2022-05-19] MEDS: Normal Saline 1,000 ML 1000 ML IV (10:20)
[2022-05-19] MEDS: Ondansetron 4 MG/2 ML VIAL IVP (10:21)
--- NOTE | 2022-05-19 10:30 | RT.EKG_ITS ---
APPROVED REPORT Exam: Resting ECG Reason for Exam: eval of QT Patient Location: E HR:61 bpm ECG Measurements Heart Rate 61 AXIS FL 361 P 37 QRSd 72 QRS 65 QT 483 T 61 QTc 488 Conclusion Sinus rhythm...normal P axis, V-rate 60- 99 Prolonged FL interval...FL >210, V-rate 50- 90. Sinus. Normal axis. No STEMI. I have reviewed and interpreted ECG and agree with software generated interpretation.
[2022-05-19 10:34] LABS: Abs Immature Grans 0.07 10^3/uL (0.0-0.06); Absolute Basophil Count 0.08 10^3/uL (0.0-0.2); Absolute Eosinophil Count 0.05 10^3/uL (0.0-0.7); Absolute Lymphocyte Count 1.57 10^3/uL (1.2-3.4); Absolute Monocyte Count 0.55 10^3/uL (0.1-0.8); Absolute Neutrophil Count 14.22 10^3/uL (1.2-6.7); Basophils % 0.5; Eosinophils % 0.3; HGB 14.4 g/dL (11.2-15.7); Immature Grans % 0.4; Lymphocytes % 9.5; MCHC 32.7 % (32.0-36.0); MCV 92 fL (80-95); MPV 9.4 fL (8.0-11.0); Monocytes % 3.3; Platelet Count 360 10^3/uL (130-400); RDW 12.8 % (11.7-14.6); RDW-SD 43.4 fL; WBC 16.54 10^3/uL (4.4-10.8)
[2022-05-19 10:49] LABS: ALT 76 U/L (14-59); AST 46 U/L (15-37); Albumin 4.2 g/dL (3.4-5.0); Alkaline Phosphatase 42 U/L (46-116); Anion Gap 7.9 mmol/L (3-11); BUN 10 mg/dL (7-18); Bilirubin, Total 0.2 mg/dL (0.2-1.0); CO2 28.1 mmol/L (21.0-32.0); CREATININE 1.1 mg/dL (0.55-1.02); Calcium 9.5 mg/dL (8.5-10.1); Chloride 103 mmol/L (98-107); Glucose 149 mg/dL (74-106); Lipase 105 U/L (73-393); Magnesium 1.7 mg/dL (1.8-2.4); Potassium 3.9 mmol/L (3.5-5.1); Sodium 139 mmol/L (136-145)
--- NOTE | 2022-05-19 11:11 | NUR.NOTE ---
Given ice chips per provider.
[2022-05-19 11:32] VITALS: BP 140/89; PULSE 85; RESP 21; O2SAT 98
[2022-05-19] MEDS: Methadone Liquid 10 MG/ML 54 MG PO (12:09)
[2022-05-19 12:43] LABS: Bilirubin Negative (Negative); Blood Negative (Negative); Clarity Sl Cloudy (Clear); Glucose Negative (Negative); Ketones Negative (Negative); Leukocyte Esterase Negative (Negative); Nitrite Negative (Negative); Urobilinogen 0.2 EU/dL (Up TO 0.2); pH 8.5 (5-8)
[2022-05-19 12:56] LABS: Bacteria Negative HPF (Negative); C & S Indicated? No/Sq. Contamination; Casts 0-2 Hyaline LPF (Negative); Crystals Moderate Amorphous HPF (Negative); Epithelial Cells Moderate HPF (Negative); Mucus Negative (Negative); RBC Negative HPF (0-2); WBC Negative HPF (0-5)
[2022-05-19] MEDS: Prochlorperazine 10 MG/2 ML VIAL 5 MG IVP (13:22)
[2022-05-19] MEDS: Omnipaque 350 MG/ML 100 ML BTL IJ (14:11)
--- NOTE | 2022-05-19 14:22 | DI.CT_ITS ---
Exam(s) CT ABDOMEN PELVIS W EXAM: CT ABDOMEN PELVIS W CLINICAL HISTORY: Abd pain, nausea and vomitting. TECHNIQUE: Imaging Protocol: Axial computed tomography images with coronal and sagittal reformatted images were created and reviewed CONTRAST MATERIAL: Intravenous: Omnipaque 100cc Oral: None COMPARISON: CT CT ABDOMEN PELVIS WO from 03/21/2022 FINDINGS: VISUALIZED LUNG BASES: Mild increased markings in the right lung base but no confluent infiltrates se en. No pleural effusions. No nodules in the lung bases.. ABDOMEN: There is no ascites. LIVER: There appears to be some improvement in previously described hepatic steatosis. There are no discrete focal hepatic lesions. No dilatation of intrahepatic ducts. GALLBLADDER/BILIARY: No obvious gallbladder pathology. CBD is not dilated. PANCREAS: No evidence of pancreatic mass nor dilatation of the pancreatic duct. SPLEEN: Spleen is not enlarged. No obvious intrasplenic lesions. Splenic and portal veins are paten t. ADRENALS: There are no significant adrenal masses. KIDNEYS:There are 2 tiny cyst in the right kidney, both measuring 3 millimeters. No other focal kameron l findings. No calculi. No hydronephrosis.. ABDOMINAL AORTA: Abdominal aorta is not enlarged. LYMPH NODES:There is no retroperitoneal nor paraaortic adenopathy. ABDOMINAL WALL: No evidence of significant anterior abdominal wall nor inguinal hernia. GI: There is no evidence of bowel obstruction, free air, nor abscess. Possible mild colitis pattern evident. However, this may be exaggerated lack of intraluminal oral co ntrast. PELVIS: GI: No evidence of appendicitis.No evidence of sigmoid diverticulitis. LYMPH NODES: There is no intrapelvic nor inguinal adenopathy. REPRODUCTIVE: Uterus size is normal. There are small ovarian cysts. Largest is on the left side and measures 1.8 x 1.2 by 1.1 cm. Largest cyst in the right ovary measures less than 1 cm. No extraova merary adnexal masses. No free fluid in the pelvis. URINARY BLADDER: No calculi nor obvious masses evident OSSEOUS: No significant osseous lesions. IMPRESSION: 1. Compared to the prior recent noninfused CT scan of 03/21/2022, the liver again exhibits steatosis and increased size but appears slightly less steatotic than previous but this may be related to the f act that the present study is contrast infused. There are no discrete focal hepatic lesions in the l iver nor dilatation of the biliary tree, both intra and extrahepatic. No ascites. No splenomegaly. 2. Subtle evidence of a possible colitis pattern. There is also fecalization of distal small bowel l oops noted. 3. Small ovarian cysts, the largest being in the left-sided measuring 18 x 12 x 11 millimeters. No e xtraovarian adnexal masses and no free fluid in the pelvis. 4. No evidence of appendicitis. No diverticulitis. RADIATION DOSE DELIVERED: 881.33mGy.cm Total DLP DATA REPOSITORY: All CT scans at this facility are submitted to the National Radiology Data Registry (NRDR) Dose Index Registry (DIR) with the [employer] (A[employer]). RADIATION OPTIMIZATION: All CT scans at this facility use at least one of these dose optimization te chniques: automated exposure control; mA and/or kV adjustment per patient size (includes targeted exa ms where dose is matched to clinical indication); or iterative reconstruction.
--- NOTE | 2022-05-19 14:44 | W.ED.GENAD ---
Discharge Plan Disposition Patient Disposition: HOME Condition: Improving Discharge Details Clinical Impression: Nausea, vomiting, and diarrhea, Colitis, Elevated liver enzymes Primary Care Provider: Argentina Rubalcava ED Provider: Cortez Manning Home Meds and New Rx's Prescriptions: New prochlorperazine maleate [Compazine] 10 mg tablet 10 mg PO Q8H PRN (Reason: nausea and vomiting) Qty: 20 0RF Continued omeprazole 20 mg capsule,delayed release(DR/EC) 20 mg PO DAILY levonorgestrel-ethinyl estrad 0.1-20 mg-mcg tablet 1 tab PO DAILY Qty: 84 4RF trazodone 100 mg tablet 100 mg PO QHS albuterol sulfate [ProAir HFA] 90 mcg/actuation HFA aerosol inhaler 2 puff inhalation Q6H PRN budesonide-formoterol [Symbicort] 80-4.5 mcg/actuation HFA aerosol inhaler 1 puff inhalation BID levothyroxine 50 mcg tablet 50 mcg PO DAILY gabapentin 300 mg capsule 300 mg PO TID clonidine HCl 0.1 mg tablet 1 tab PO DAILY Label Comments: TAKE ONE TABLET BY MOUTH AT BEDTIME methadone 10 mg/mL Concentrate 54 mg PO DAILY Discharge Instructions Additional Instructions: As discussed you will need to follow-up with your primary care provider for reassessment of your abdominal pain along with your elevated liver enzymes. At this time there are no emergent findings and the Compazine seems to have helped your symptoms. It is important to stay well-hydrated and slowly advance your diet as tolerated. If you develop any new or significant worsening of symptoms please return immediately to the emergency department for reassessment. Referrals: Argentina Rubalcava [Primary Care Provider] - 1 week Discharge Data Discharge Date/Time-TO BE ENTERED AT DEPARTURE: 05/19/22 15:11 Medical Decision Making Patient presenting to the emergency department for chief complaint of abdominal pain nausea vomiting. Patient said for started when she woke up this morning around 7 AM. Patient denies any withdrawal from substances, any fever chills he does state similar episodes in the past. Patient is well-known to the emergency department with multiple visits for similar complaint. Patient denies any excessive marijuana use but does state that she continues to smoke marijuana. Physical exam shows diffuse abdominal tenderness without focal findings. We will initially plan on checking labs including urinalysis and test. Pending results we will give antiemetics and fluids. Review of CBC does show a acute elevation of WBCs and neutrophils but otherwise is unremarkable. I do feel that elevation of WBCs is due to acute nausea vomiting not worried about infectious etiology at this time. CMP shows a slightly elevated creatinine of 1.1, mag of 1.7, and mild elevation of AST, ALT with low alk phos and high protein. Patient does have history of hepatitis C and has not received treatment for this. Patient has had similar labs in the past. Lipase is unremarkable at 105. Patient is not and does show trace protein in her urine otherwise unremarkable urinalysis with contaminated specimen noted. Reassessed patient and she is no longer had any further episodes of vomiting but has had continued abdominal pain. Reassessment of the abdomen endorses mild right lower quadrant pain. Will perform CT imaging. Review of CT imaging and discussion of imaging with radiologist shows slightly increased liver size, colitis pattern noted but is subtle, no evidence of diverticulitis or appendicitis and small ovarian cysts. In review of previous visits this seems similar with no worrisome changes. Discharge reassessed patient and patient states significant improvement of symptoms. We will plan on prescribing patient Compazine as that seemed to help better than the Zofran. Patient will follow up with primary care provider for reassessment of patient's elevated liver enzymes and recurrent colitis. After discussion of diagnosis and plan of care patient has no further needs, questions, or concerns and states clear understanding to return to the emergency department for any worsening symptoms. This documentation was generated using Tradier dictation system, please disregard any oddities of phrase or misspellings. Imaging Data Radiologic Study: Imaging: CT Scan Radiologist's impression: FINDINGS: VISUALIZED LUNG BASES: Mild increased markings in the right lung base but no confluent infiltrates seen. No pleural effusions. No nodules in the lung bases.. ABDOMEN: There is no ascites. LIVER: There appears to be some improvement in previously described hepatic steatosis. There are no discrete focal hepatic lesions. No dilatation of intrahepatic ducts. GALLBLADDER/BILIARY: No obvious gallbladder pathology. CBD is not dilated. PANCREAS: No evidence of pancreatic mass nor dilatation of the pancreatic duct. SPLEEN: Spleen is not enlarged. No obvious intrasplenic lesions. Splenic and portal veins are patent. ADRENALS: There are no significant adrenal masses. KIDNEYS:There are 2 tiny cyst in the right kidney, both measuring 3 millimeters. No other focal renal findings. No calculi. No hydronephrosis.. ABDOMINAL AORTA: Abdominal aorta is not enlarged. LYMPH NODES:There is no retroperitoneal nor paraaortic adenopathy. ABDOMINAL WALL: No evidence of significant anterior abdominal wall nor inguinal hernia. GI: There is no evidence of bowel obstruction, free air, nor abscess. Possible mild colitis pattern evident. However, this may be exaggerated lack of intraluminal oral contrast. PELVIS: GI: No evidence of appendicitis.No evidence of sigmoid diverticulitis. LYMPH NODES: There is no intrapelvic nor inguinal adenopathy. REPRODUCTIVE: Uterus size is normal. There are small ovarian cysts. Largest is on the left side and measures 1.8 x 1.2 by 1.1 cm. Largest cyst in the right ovary measures less than 1 cm. No extraovarian adnexal masses. No free fluid in the pelvis. URINARY BLADDER: No calculi nor obvious masses evident OSSEOUS: No significant osseous lesions. IMPRESSION: 1. Compared to the prior recent noninfused CT scan of 03/21/2022, the liver again exhibits steatosis and increased size but appears slightly less steatotic than previous but this may be related to the fact that the present study is contrast infused. There are no discrete focal hepatic lesions in the liver nor dilatation of the biliary tree, both intra and extrahepatic. No ascites. No splenomegaly. 2. Subtle evidence of a possible colitis pattern. There is also fecalization of distal small bowel loops noted. 3. Small ovarian cysts, the largest being in the left-sided measuring 18 x 12 x 11 millimeters. No extraovarian adnexal masses and no free fluid in the pelvis. 4. No evidence of appendicitis. No diverticulitis. Lab Data Lab results reviewed: Yes I reviewed the patient's lab results. HPI General Mode of arrival: EMS. Date/Time Provider Initiated Documentation: 05/19/22 09:49. Limitations to Documentation: no limitations. Information obtained by: patient and RN notes reviewed. History of Present Illness 36 year old F presents to the emergency department with the chief complaint of Abdominal pain nausea vomiting diarrhea, described as moderate and similar to prior episodes, with intensity rated at 8. Quality is described as sharp, and is localized to the abdomen. Patient reports no radiation. Patient started experiencing this hour(s) (2) and it has been constant. No exacerbating factors reported . Patient notes no other symptoms.. Patient did receive the following treatments prior to arrival, none Related Data Home Medications Medication Instructions Recorded Confirmed omeprazole 20 mg capsule,delayed 20 mg PO DAILY 07/01/21 05/19/22 release albuterol sulfate 90 mcg/actuation 2 puff inhalation Q6H PRN 08/27/21 05/19/22 aerosol inhaler (ProAir HFA) budesonide-formoterol HFA 80 1 puff inhalation BID 08/27/21 05/19/22 mcg-4.5 mcg/actuation aerosol inhaler (Symbicort) gabapentin 300 mg capsule 300 mg PO TID 08/27/21 05/19/22 levothyroxine 50 mcg tablet 50 mcg PO DAILY 08/27/21 05/19/22 levonorgestrel-ethinyl estradiol 1 tab PO DAILY #84 tabs 03/07/22 05/19/22 0.1 mg-20 mcg tablet trazodone 100 mg tablet 100 mg PO QHS 03/07/22 05/19/22 clonidine HCl 0.1 mg tablet 1 tab PO DAILY 03/21/22 05/19/22 methadone 10 mg/mL oral concentrate 54 mg PO DAILY 05/19/22 05/19/22 prochlorperazine maleate 10 mg 10 mg PO Q8H PRN nausea and 05/19/22 tablet (Compazine) vomiting #20 tabs Previous Rx's Medication Instructions Recorded levonorgestrel-ethinyl estradiol 1 tab PO DAILY #84 tabs 03/07/22 0.1 mg-20 mcg tablet prochlorperazine maleate 10 mg 10 mg PO Q8H PRN nausea and 05/19/22 tablet (Compazine) vomiting #20 tabs Allergies Allergy/AdvReac Type Severity Reaction Status Date / Time No Known Drug Allergies Allergy none Verified 05/19/22 10:08 General Stated Complaint: GenMedical ALONA: 3 Review of Systems Constitutional Constitutional: Denies chills, Denies fever(s) and Reports poor appetite Cardiovascular Cardiovascular: Denies chest pain and Denies dyspnea Respiratory Respiratory: Denies cough and Denies dyspnea Gastrointestinal Gastrointestinal: Reports as per HPI, Reports abdominal pain, Denies melena, Denies change in bowel habits, Denies constipation, Reports diarrhea, Reports nausea and Reports vomiting Genitourinary Genitourinary: Denies hematuria, Denies urinary incontinence, Denies urinary hesitancy and Denies urinary urgency Integumentary/Breasts Skin/Breast: Denies rash PFSH All Active Problems Nausea, vomiting, and diarrhea (Acute) Colitis (Acute) Elevated liver enzymes (Acute) Chest pain (Acute) Cocaine abuse (Acute) Amenorrhea (Acute) Spotting (Acute) Tobacco use (Acute 10/15/15) Anxiety (Acute 12/16/15) Hepatitis C antibody test positive (Acute 10/15/15) Nl LFTs. Undetectable viral load. Opioid use disorder, mild, in early remission, on maintenance therapy (Acute 10/15/15) Thru BARRT since 12/2014. 75mg/day. Wants to wean down in 2016. Personal history of cervical dysplasia (Acute 09/17/15) HAYLEY II 2012 Pyelonephritis (Acute 02/11/15) right sided Narcotic addiction (Acute 02/11/15) a. on methadone via [facility] services Substance abuse in remission (Chronic) a. h/o IV drug abuse, clean x 2 months b. s/p inpatient rehab program, 12/2014 Cervical dysplasia (Chronic) a. s/p LEEP 09/2013, LGISL 04/2014 Thyromegaly (Chronic) Anxiety and depression (Chronic) oligohydramnios & iugr in 2006 (Chronic) Tobacco abuse (Chronic) 1/2 PPD Medical History Abnormal Pap smear of vagina Anxiety and depression Bilateral carpal tunnel syndrome Cervical dysplasia s/p LEEP 2013. 2016 Nl Pap/HPV. Drug induced constipation GERD (gastroesophageal reflux disease) Glucose intolerance of 2016. Pt did not test CBGs or follow dietary counseling during . 2hr GTT____ Hand numbness Hepatitis C antibody test positive 2015. Undetectable viral load. Hepatitis C, chronic Heroin abuse 12/2014 currently on Methadone maintenance. History of depression History of heroin abuse History of complication 2006 IOL 34w EGA @ [facility] for IUGR. 2015 . IOL @33w for severe preeclampsia. [facility] History of pyelonephritis (~2014) during 2nd . chronic suppression during . Hypothyroidism Insomnia Screen for STD (sexually transmitted disease) Shortness of breath Skin infection Stimulant abuse Tobacco use UTI (urinary tract infection) Surgical History Cervical Conization/LEEP LEEP. Repair of umbilical hernia in childhood Social History Smoking/Tobacco Use Status: Current every day Tobacco Type: cigarettes Smoking risk assessment performed?: Yes Alcohol Intake: former Drug use: Daily Substance use type: marijuana Details: on methadone Do you feel safe at home: Yes Do you feel safe in your relationship?: Yes Female Reproductive History Menstrual Age of Menarche: 15 Duration of menses: 3-5 days Date of last menstrual period: 05/06/22 control method: none History History 3 Para 2 Hx # Term Pregnancies Multiple births Hx # Pregnancies Ectopic pregnancies AB induced Hx Number of Living Children AB spontaneous Past Pregnancies Del. Date GA/Weeks # Preg Succ Route Wgt Sex Labor Lgth Anesthesia Location Prov Complic 09/29/06 34 No Yes vaginal 2296.311 g Female 04/05/17 34 No Yes vaginal 2182.913 g Female Delivery Date: 09/29/06 Last Updated by: Sofie Eagle- baby in [facility] for 3 weeks d/t prematurity Delivery Date: 04/05/17 Last Updated by: Sofie Rojas- delivered at [facility], kept for prematurity for three weeks. Exam Const General: cooperative Orientation: alert, awake and oriented x3 Resp Effort & Inspection: normal respiratory effort and able to speak in complete sentences Auscultation: clear to auscultation bilaterally Cardio Rate: regular rate Rhythm: regular rhythm Heart Sounds: S1 normal and S2 normal GI Palpation: soft, no hepatosplenomegaly, not firm, no guarding, no masses, no pulsatile masses, not rigid, no splenomegaly and tender in the epigastrum; not at McBurney's point, Marroquin's sign negative and Rovsing's sign negative Auscultation: normal bowel sounds Back/Spine/Pelvis Back: no CVA tenderness Neuro General: patient alert, patient awake, patient oriented x3, gait normal and moves all extremities Course Vital Signs Vital signs: Vital Signs Temperature 36.2 C L 05/19/22 09:54 Pulse 70 05/19/22 09:54 Respiratory Rate 16 05/19/22 09:54 Blood Pressure 174/91 H 05/19/22 09:54 Pulse Oximetry 96 05/19/22 09:54 Temperature 36.2 C L 05/19/22 09:54 Temperature Source Temporal Artery Scan 05/19/22 09:54 Pulse 85 05/19/22 11:32 Respiratory Rate 21 05/19/22 11:32 Respiratory Effort 05/19/22 10:11 Respiratory Depth Normal 05/19/22 10:11 Respiratory Pattern Normal 05/19/22 10:11 Blood Pressure 140/89 05/19/22 11:32 Blood Pressure Position Right Lateral 05/19/22 09:54 Pulse Oximetry 98 05/19/22 11:32 Oxygen Delivery Method Room Air 05/19/22 11:32 Oxygen Flow Rate 0 05/19/22 11:32 Pain Level 8 05/19/22 12:09 Lab/Test Results Lab/Test Results: Laboratory Tests Range/Units 05/19/22 05/19/22 05/19/22 10:24 10:24 12:27 WBC (4.4-10.8) 10^3/uL 16.54 H RBC (3.93-5.22) 10^6/uL 4.80 Hgb (11.2-15.7) g/dL 14.4 Hct (36.0-46.0) % 44.0 MCV (80-95) fL 92 MCH (27.0-33.0) pg 30.0 MCHC (32.0-36.0) % 32.7 RDW (11.7-14.6) % 12.8 Plt Count (130-400) 10^3/uL 360 MPV (8.0-11.0) fL 9.4 Immature Gran % 0.4 Neutrophils % 86.0 Lymphocytes % 9.5 Monocytes % 3.3 Eosinophils % 0.3 Basophils % 0.5 Nucleated RBC % (0.0-0.3) % 0.0 Absolute Neutrophils (1.2-6.7) 10^3/uL 14.22 H Absolute Lymphocytes (1.2-3.4) 10^3/uL 1.57 Absolute Monocytes (0.1-0.8) 10^3/uL 0.55 Absolute Eosinophils (0.0-0.7) 10^3/uL 0.05 Absolute Basophils (0.0-0.2) 10^3/uL 0.08 Sodium (136-145) mmol/L 139 Potassium (3.5-5.1) mmol/L 3.9 Chloride (98-107) mmol/L 103 Carbon Dioxide (21.0-32.0) mmol/L 28.1 Anion Gap (3-11) mmol/L 7.9 BUN (7-18) mg/dL 10 Creatinine (0.55-1.02) mg/dL 1.1 H Est GFR (CKD-EPI 2020) (mL/min/1.73m2) 67.20 Glucose (74-106) mg/dL 149 H Calcium (8.5-10.1) mg/dL 9.5 Magnesium (1.8-2.4) mg/dL 1.7 L Total Bilirubin (0.2-1.0) mg/dL 0.2 AST (15-37) U/L 46 H ALT (14-59) U/L 76 H Alkaline Phosphatase (46-116) U/L 42 L Total Protein (6.4-8.2) g/dL 9.0 H Albumin (3.4-5.0) g/dL 4.2 Lipase (73-393) U/L 105 Urine Color (Yellow) Yellow Urine Clarity (Clear) Sl Cloudy Urine pH (5-8) 8.5 H Ur Specific [place] (1.005-1.025) 1.020 Urine Protein (Negative) mg/dL Trace H Urine Ketones (Negative) mg/dL Negative Urine Blood (Negative) Negative Urine Nitrite (Negative) Negative Urine Bilirubin (Negative) Negative Urine Urobilinogen (Up TO 0.2) EU/dL 0.2 Ur Leukocyte Esterase (Negative) Negative Urine RBC (0-2) HPF Negative Urine WBC (0-5) HPF Negative Ur Epithelial Cells (Negative) HPF Moderate Urine Crystals (Negative) HPF Moderate Amorphous Urine Bacteria (Negative) HPF Negative Urine Casts (Negative) LPF 0-2 Hyaline Urine Mucus (Negative) Negative Ur Culture Indicated? No/Sq. Contamination Urine Glucose (Negative) mg/dL Negative POC- Test(urine) Negative
[2022-05-19 15:04] VITALS: BP 127/93; PULSE 87; TEMP 37.1; O2SAT 93
--- NOTE | 2022-05-20 12:04 | NUR.NOTE ---
Nursing Note: Pt info faxed to PCP for follow up in one week for elevated liver enzymes, nausea & vomiting. Ayah, ED
== END 2022-05-19 15:11 | disposition home or self-care (01) ==
PROVIDERS: Emergency Provider Nurse Practitioner Family; PCP Nurse Practitioner Family
DX: K52.9 Noninfective gastroenteritis and colitis, unspecified (principal); R94.5 Abnormal results of liver function studies; D72.829 Elevated white blood cell count, unspecified; R79.89 Other specified abnormal findings of blood chemistry; F17.210 Nicotine dependence, cigarettes, uncomplicated
CPT/HCPCS: 80053; 81025; 83690; 93005; 96361; 96374; 96375; 99285; 74177; 81003; 81015; 83735; 85025; 93010; 99284; J0780; J2405; J3490

== ENCOUNTER 2022-08-09 16:48 | Outpatient (REF) | payer MEDICAID, SELFPAY ==
[2022-08-09 15:57] LABS: ALT 40 U/L (14-59); AST 22 U/L (15-37); Alkaline Phosphatase 46 U/L (46-116); Anion Gap 9.8 mmol/L (3-11); BUN 8 mg/dL (7-18); Bilirubin, Total 0.3 mg/dL (0.2-1.0); CO2 29.2 mmol/L (21.0-32.0); CREATININE 0.9 mg/dL (0.55-1.02); Calcium 9.4 mg/dL (8.5-10.1); Chloride 98 mmol/L (98-107); Glucose 97 mg/dL (74-106); Potassium 3.9 mmol/L (3.5-5.1); Sodium 137 mmol/L (136-145); TSH (W/Ref FT4) 10.29 uIU/mL (0.36-3.74); Total Protein 8.1 g/dL (6.4-8.2)
[2022-08-09 16:33] LABS: FREE T4 0.81 ng/dL (0.76-1.46)
[2022-08-10 10:29] LABS: Hepatitis C Ab w Rflx HCV PCR Reactive (Negative)
[2022-08-15 12:53] LABS: HCV RNA Qualitative Undetected (Undetected)
== END 2022-08-09 16:49 | disposition home or self-care (01) ==
LOC: NCHCN 16:48
PROVIDERS: PCP Nurse Practitioner Family; Visit Provider Nurse Practitioner Family
DX: E03.9 Hypothyroidism, unspecified (principal); F51.5 Nightmare disorder; R94.5 Abnormal results of liver function studies; G56.03 Carpal tunnel syndrome, bilateral upper limbs; Z11.59 Encounter for screening for other viral diseases
CPT/HCPCS: 80053; 86803; 87522; 84439; 84443

== ENCOUNTER 2022-08-24 19:22 | Outpatient (REF) | payer MEDICAID, SELFPAY ==
[2022-08-24 19:38] LABS: Abs Immature Grans 0.05 10^3/uL (0.0-0.06); Absolute Basophil Count 0.08 10^3/uL (0.0-0.2); Absolute Eosinophil Count 0.25 10^3/uL (0.0-0.7); Absolute Lymphocyte Count 4.43 10^3/uL (1.2-3.4); Absolute Monocyte Count 0.83 10^3/uL (0.1-0.8); Basophils % 0.5; Eosinophils % 1.5; HCT 39.2 % (36.0-46.0); Immature Grans % 0.3; Lymphocytes % 26.8; MCH 30.2 pg (27.0-33.0); MCHC 33.2 % (32.0-36.0); MCV 91 fL (80-95); MPV 10.3 fL (8.0-11.0); Neutrophils % 65.9; Platelet Count 354 10^3/uL (130-400); RBC 4.31 10^6/uL (3.93-5.22); RDW 12.5 % (11.7-14.6); RDW-SD 41.7 fL; WBC 16.52 10^3/uL (4.4-10.8)
[2022-08-24 19:39] LABS: Absolute Neutrophil Count 10.89 10^3/uL (1.2-6.7); ESR 33 mm/hr (0-20)
[2022-08-24 20:01] LABS: ALT 26 U/L (14-59); AST 18 U/L (15-37); Albumin 3.9 g/dL (3.4-5.0); Alkaline Phosphatase 38 U/L (46-116); Amylase 59 U/L (25-115); Anion Gap 8.1 mmol/L (3-11); BUN 9 mg/dL (7-18); Bilirubin, Total 0.2 mg/dL (0.2-1.0); CO2 28.9 mmol/L (21.0-32.0); CREATININE 0.8 mg/dL (0.55-1.02); Calcium 9.2 mg/dL (8.5-10.1); Chloride 103 mmol/L (98-107); Estimated GFR 98.48 (mL/min/1.73m2); Glucose 82 mg/dL (74-106); Lipase 119 U/L (73-393); Magnesium 2.1 mg/dL (1.8-2.4); Potassium 4.2 mmol/L (3.5-5.1); Sodium 140 mmol/L (136-145); TSH (W/Ref FT4) 12.46 uIU/mL (0.36-3.74); Total Protein 7.9 g/dL (6.4-8.2)
[2022-08-24 20:13] LABS: Vitamin D 25 Total 23.2 ng/mL (30-100)
[2022-08-24 20:23] LABS: ETHANOL BLOOD < 3.0 mg/dL (<10)
[2022-08-24 20:32] LABS: FREE T4 1.11 ng/dL (0.76-1.46)
[2022-08-24 21:14] LABS: Vitamin B12 928 pg/mL (193-986)
== END 2022-08-24 19:23 | disposition home or self-care (01) ==
LOC: NCHCN 19:22
PROVIDERS: PCP Nurse Practitioner Family; Visit Provider Nurse Practitioner Family
DX: R19.8 Other specified symptoms and signs involving the digestive system and abdomen (principal); R11.0 Nausea; E03.9 Hypothyroidism, unspecified; B18.2 Chronic viral hepatitis C; R94.5 Abnormal results of liver function studies
CPT/HCPCS: 80053; 82306; 83690; 85652; 80320; 82150; 82607; 83735; 84439; 84443; 85025; 86140

== ENCOUNTER 2022-12-01 02:39 | Outpatient (CLI) | payer MEDICAID, SELFPAY ==
[2022-12-01 12:10] LABS: TSH (W/Ref FT4) 2.06 uIU/mL (0.36-3.74)
== END 2022-12-01 02:40 | disposition home or self-care (01) ==
LOC: LBO 02:40
PROVIDERS: PCP Nurse Practitioner Family; Visit Provider Nurse Practitioner Family
DX: E03.9 Hypothyroidism, unspecified (principal); R20.2 Paresthesia of skin
CPT/HCPCS: 36415; 84443

== ENCOUNTER 2023-01-22 09:29 | Emergency (ER) | payer MEDICAID, SELFPAY ==
[2023-01-22 09:33] VITALS: BP 149/95; PULSE 84; RESP 18; TEMP 36.7; O2SAT 97
--- NOTE | 2023-01-22 09:58 | ED.GENADUL_ITS ---
Discharge Plan Disposition Patient Disposition: Home Discharge Details Clinical Impression: Hordeolum externum left lower eyelid, Corneal abrasion, left Primary Care Provider: MINNIE NICHOLS ED Provider: Fatou Heard Home Meds and New Rx's Prescriptions: Continued omeprazole 20 mg capsule,delayed release(DR/EC) 20 mg PO DAILY hydroxyzine pamoate 25 mg capsule 25 mg PO BID PRN Patient Comments: 09/29/22- pt reports taking one 25 mg cap in am and three 25 mg cap (75 mg total) at night. fluoxetine 40 mg capsule 40 mg PO DAILY levonorgestrel-ethinyl estrad 0.1-20 mg-mcg tablet 1 tab PO DAILY Qty: 84 4RF albuterol sulfate [ProAir HFA] 90 mcg/actuation HFA aerosol inhaler 2 puff inhalation Q6H PRN budesonide-formoterol [Symbicort] 80-4.5 mcg/actuation HFA aerosol inhaler 1 puff inhalation BID prazosin [Minipress] 1 mg capsule 1 mg PO QHS Patient Comments: not taking levothyroxine 50 mcg tablet 75 mcg PO DAILY clonidine HCl 0.1 mg tablet 0.1 mg PO DAILY Patient Comments: TAKE ONE TABLET BY MOUTH AT BEDTIME methadone 10 mg/mL Concentrate 54 mg PO DAILY Discharge Instructions Instructions: Stye (ED), Corneal Abrasion (ED) Additional Instructions: Continue the hot compresses 20 minutes on and 20 minutes off throughout the day. Apply the erythromycin ointment 3 times per day. Clean any discharge off before application of the next dose of erythromycin. Call mom's grocery clerk tomorrow morning for follow-up appointment for tomorrow. Your mild blurring should resolve after the stye and corneal abrasion are gone. Return to ED for any questions or concerns. Discharge Data Discharge Date/Time-TO BE ENTERED AT DEPARTURE: 01/22/23 10:37 Medical Decision Making Stye treatment discussed with the patient who will apply hot compresses 20 minutes on and 20 minutes off until resolved. She will also use erythromycin ointment 3 times per day for the corneal abrasion. This may help with a stye as well. Mom will call her grocery clerk in the morning to get the patient in for recheck tomorrow. They will return for any questions or concerns. I told her I think the vague blurred vision that she has is from the corneal abrasion on her pupil which is just above the stye. HPI General Date/Time Provider Initiated Documentation: 01/22/23 09:50 . HPI Narrative: This 37-year-old female patient presents with a chief complaint of swelling beneath her left eye. She complains that her eye hurts but when asked more about it is actually the area under her eye. Reports that she feels like her vision is blurred and that I the lower lid is swollen enough that sometimes it obstructs her vision and she admits that this. She then tells me that her vision is vaguely blurred I suspect this is from discharge. She denies fever or chills. She says the blurring began yesterday. She is not sure whether or not she may have been bitten by a bug 4 days ago when this began. There is only a vague redness beneath her left eye where it is mildly swollen. It is not hot to the touch. Related Data Home Medications Medication Instructions Recorded Confirmed omeprazole 20 mg capsule,delayed 20 mg PO DAILY 07/01/21 01/22/23 release albuterol sulfate 90 mcg/actuation 2 puff inhalation Q6H PRN 08/27/21 01/22/23 aerosol inhaler (ProAir HFA) budesonide-formoterol HFA 80 1 puff inhalation BID 08/27/21 01/22/23 mcg-4.5 mcg/actuation aerosol inhaler (Symbicort) methadone 10 mg/mL oral concentrate 54 mg PO DAILY 05/19/22 01/22/23 clonidine HCl 0.1 mg tablet 0.1 mg PO DAILY 09/29/22 01/22/23 fluoxetine 40 mg capsule 40 mg PO DAILY 09/29/22 01/22/23 hydroxyzine pamoate 25 mg capsule 25 mg PO BID PRN 09/29/22 01/22/23 levonorgestrel-ethinyl estradiol 1 tab PO DAILY #84 tabs 09/29/22 01/22/23 0.1 mg-20 mcg tablet levothyroxine 50 mcg tablet 75 mcg PO DAILY 12/13/22 01/22/23 prazosin 1 mg capsule (Minipress) 1 mg PO QHS 12/13/22 Previous Rx's Medication Instructions Recorded levonorgestrel-ethinyl estradiol 1 tab PO DAILY #84 tabs 09/29/22 0.1 mg-20 mcg tablet Allergies Allergy/AdvReac Type Severity Reaction Status Date / Time No Known Drug Allergies Allergy none Verified 01/22/23 09:37 General Stated Complaint: EyeProblem ALONA: 4 Review of Systems Constitutional Constitutional: Denies chills, Denies fever(s), Denies headache(s) and Denies malaise Eyes Eyes: Reports as per HPI and Reports blurry vision (left) ENT Ears, Nose, Mouth, and Throat: Denies otalgia, Denies headache(s), Denies nasal congestion and Denies nasal discharge Integumentary/Breasts Skin/Breast: Reports erythema (lower lid left, mild,w/edema) Neurologic Neurologic: Denies headache(s) PFSH All Active Problems Hordeolum externum left lower eyelid (Acute) Corneal abrasion, left (Acute) Medical History Abdominal complaints Anxiety and depression Bilateral carpal tunnel syndrome Contraceptive surveillance OCPs for amenorrhea February 2022 Drug induced constipation Elevated liver function tests GERD (gastroesophageal reflux disease) Hepatitis C antibody test positive 2015. Undetectable viral load. History of heroin abuse History of complication 2006 IOL 34w EGA @ [facility] [place] for IUGR. 2016 . IOL @33w for severe preeclampsia. [facility] [place] History of pyelonephritis (~2014) during 2nd . chronic suppression during . Hoarseness Hypothyroidism Insomnia Nightmares OCD (obsessive compulsive disorder) Personal history of cervical dysplasia (09/17/15) HAYLEY II 2012, LEEP 2013. WNL 2021 Stress incontinence Substance abuse in remission Hx inpt tx in 2014, in [facility] program, sees therapist Thyromegaly Tobacco abuse 1/2 PPD Surgical History Cervical Conization/LEEP LEEP. Repair of umbilical hernia in childhood Social History Smoking/Tobacco Use Status: Current every day Tobacco Type: cigarettes Smoking risk assessment performed?: Yes Alcohol Intake: former Drug use: Occasionally Substance use type: marijuana Details: on methadone Do you feel safe at home: Yes Do you feel safe in your relationship?: Yes Female Reproductive History Menstrual Age of Menarche: 15 Duration of menses: 3-5 days control method: none History History 3 Para 2 Hx # Term Pregnancies Multiple births Hx # Pregnancies Ectopic pregnancies AB induced Hx Number of Living Children AB spontaneous Past Pregnancies Del. Date GA/Weeks # Preg Succ Route Wgt Sex Labor Lgth Anesth esia Location Prov [facility] 09/29/06 34 No Yes vaginal 2296.311 g Female 04/05/17 34 No Yes vaginal 2182.913 g Female Delivery Date: 09/29/06 Last Updated by: Sofie Eagle- baby in [facility] [place] for 3 weeks d/t prematurity Delivery Date: 04/05/17 Last Updated by: Sofie Rojas- delivered at [facility] [place], kept for prematurity for three weeks. Exam Const General: cooperative, healthy appearing, comfortable, no acute distress, well developed and well groomed Orientation: alert and oriented x3 HENMT Head: normal to inspection (except mild erythema and edema w/crusting below L eye) Eyes Visual Carpenter: normal visual carpenter by confrontation Alignment and Position: alignment normal Periorbital: periorbital findings abnormal (stye and mild erythema/edema on and below mid left lid) Eyelids: eyelid abnormality (as noted) left lower eyelid Conjunctivae: conjunctivae normal Sclera: sclerae normal Cornea: fluorescein used (faint splash of dye uptake over lower pupil left) Pupils: PERRL and accommodation normal EOM: EOM intact bilaterally Other: Slit-lamp exam with tetracaine and fluorescein reveals no foreign body, no streaming, no cells in anterior chamber. There is very faint uptake with a splash of dye over the patient's mid to lower pupil at 6:00. This was performed after exudate was gently removed from the patient's eye. Neck Neck: supple Resp Effort & Inspection: normal respiratory effort Skin General skin exam: other (PWD; eyelid L not hot to touch) Neuro General: patient alert and patient oriented x3 Extrem General: full ROM Course Vital Signs Vital signs: Vital Signs Temperature 36.7 C 01/22/23 09:33 Pulse 84 01/22/23 09:33 Respiratory Rate 18 01/22/23 09:33 Blood Pressure 149/95 H 01/22/23 09:33 Pulse Oximetry 97 01/22/23 09:33 Temperature 36.7 C 01/22/23 09:33 Temperature Source Oral 01/22/23 09:33 Pulse 84 01/22/23 09:33 Respiratory Rate 18 01/22/23 09:33 Respiratory Effort Normal 01/22/23 09:38 Blood Pressure 149/95 H 01/22/23 09:33 Blood Pressure Position Sitting 01/22/23 09:33 Pulse Oximetry 97 01/22/23 09:33 Oxygen Delivery Method Room Air 01/22/23 09:33 Oxygen Flow Rate 0 01/22/23 09:33 Pain Level 8 01/22/23 09:33
[2023-01-22] MEDS: Tetracaine 0.5% 4 ML BTL OP (10:30)
[2023-01-22] MEDS: Fluorescein STRIPS 100/BOX 1 MG OP (10:30)
[2023-01-22] MEDS: Erythromycin Ophth Oint 3.5 GM TUBE OS (10:35)
== END 2023-01-22 10:37 | disposition home or self-care (01) ==
PROVIDERS: Emergency Provider Emergency Medicine; PCP Nurse Practitioner Family
DX: H00.015 Hordeolum externum left lower eyelid (principal); S05.02XA Injury of conjunctiva and corneal abrasion without foreign body, left eye, initial encounter
CPT/HCPCS: 99283; 99284

== ENCOUNTER 2023-04-30 15:04 | Emergency (ER) | payer MEDICAID, SELFPAY ==
[2023-04-30] VITALS (8 sets, daily range): BP systolic 126–158; BP diastolic 66–105; PULSE 61–81; RESP 20–22; TEMP 36.9–37; O2SAT 99–100
--- NOTE | 2023-04-30 15:18 | ED.GENADUL_ITS ---
Discharge Plan Disposition Patient Disposition: Home Discharge Details Clinical Impression: Primary Care Provider: MINNIE NICHOLS ED Provider: Vasu Chaves Home Meds and New Rx's Prescriptions: No Action omeprazole 20 mg capsule,delayed release(DR/EC) 20 mg PO DAILY hydroxyzine pamoate 25 mg capsule 25 mg PO BID PRN Patient Comments: 09/29/22- pt reports taking one 25 mg cap in am and three 25 mg cap (75 mg total) at night. fluoxetine 40 mg capsule 40 mg PO DAILY levonorgestrel-ethinyl estrad 0.1-20 mg-mcg tablet 1 tab PO DAILY Qty: 84 4RF budesonide-formoterol [Symbicort] 80-4.5 mcg/actuation HFA aerosol inhaler 1 puff inhalation BID prazosin [Minipress] 1 mg capsule 1 mg PO QHS Patient Comments: not taking levothyroxine 50 mcg tablet 75 mcg PO DAILY clonidine HCl 0.1 mg tablet 0.1 mg PO DAILY Patient Comments: TAKE ONE TABLET BY MOUTH AT BEDTIME methadone 10 mg/mL concentrate 30 mg PO DAILY Discharge Instructions Instructions: (ED) Additional Instructions: You are very early in your . Strongly recommend that you start taking some vitamins as soon as possible. It is extremely important that you follow-up with your primary care doctor to start getting some related care. Make sure you drink and eat healthy. Please continue taking all your regular medications except for your control. Medical Decision Making 37-year-old presented to the emergency room with 1 day history of nausea vomiting diarrhea. White count 25 CT scan of the pelvis was ordered. Patient was also found to have a low potassium as well as low magnesium. Electrolytes were repleted. The patient was found to be . Quant estimates the to 2 weeks at the maximum. Patient does not recall her last menstrual. Patient was diagnosed with gastroenteritis but it is also possible that the patient was in what could be opiate withdrawal. Patient does take methadone on a daily basis. Unclear to me when she took her last dose. After she was told that she was patient decided to leave the emergency department. She felt better. She was discharged. Unclear why she had such a high white count which actually could be just secondary to her gastroenteritis. Or withdrawal. HPI General Date/Time Provider Initiated Documentation: 04/30/23 15:12 . HPI Narrative: 37-year-old presents to the emergency department for nausea vomiting and diarrhea since this morning. She is complaining of diffuse abdominal discomfort. Arrives to the emergency department nauseous and vomiting in the waiting room. No fever no chills. No dysuria. Patient is unsure if she is . Related Data Home Medications Medication Instructions Recorded Confirmed omeprazole 20 mg capsule,delayed 20 mg PO DAILY 07/01/21 01/25/23 release budesonide-formoterol HFA 80 1 puff inhalation BID 08/27/21 01/25/23 mcg-4.5 mcg/actuation aerosol inhaler (Symbicort) clonidine HCl 0.1 mg tablet 0.1 mg PO DAILY 09/29/22 01/25/23 fluoxetine 40 mg capsule 40 mg PO DAILY 09/29/22 01/25/23 hydroxyzine pamoate 25 mg capsule 25 mg PO BID PRN 09/29/22 01/25/23 levonorgestrel-ethinyl estradiol 1 tab PO DAILY #84 tabs 09/29/22 01/25/23 0.1 mg-20 mcg tablet levothyroxine 50 mcg tablet 75 mcg PO DAILY 12/13/22 01/25/23 prazosin 1 mg capsule (Minipress) 1 mg PO QHS 12/13/22 methadone 10 mg/mL oral concentrate 30 mg PO DAILY 04/13/23 04/13/23 Previous Rx's Medication Instructions Recorded levonorgestrel-ethinyl estradiol 1 tab PO DAILY #84 tabs 09/29/22 0.1 mg-20 mcg tablet Allergies Allergy/AdvReac Type Severity Reaction Status Date / Time No Known Drug Allergies Allergy none Verified 04/30/23 15:12 General Stated Complaint: Nausea/Vomit/Diar ALONA: 3 Review of Systems Narrative: Patient not contributed to her ROS [facility] All Active Problems (Updated 04/30/23 @ 17:51 by Vasu Chaves MD) (Acute) Left carpal tunnel syndrome (Acute) Right carpal tunnel syndrome (Acute) Medical History Abdominal complaints Anxiety and depression Bilateral carpal tunnel syndrome Contraceptive surveillance OCPs for amenorrhea February 2022 Drug induced constipation Elevated liver function tests GERD (gastroesophageal reflux disease) Hepatitis C antibody test positive 2015. Undetectable viral load. History of heroin abuse History of complication 2007 IOL 34w EGA @ [facility] for IUGR. 2016 . IOL @33w for severe preeclampsia. [facility] [place] History of pyelonephritis (~2014) during 2nd . chronic suppression during . Hoarseness Hypothyroidism Insomnia Nightmares OCD (obsessive compulsive disorder) Personal history of cervical dysplasia (09/17/15) HAYLEY II 2012, LEEP 2013. WNL 2021 Stress incontinence Substance abuse in remission Hx inpt tx in 2014, in [facility] program, sees therapist Thyromegaly Tobacco abuse 1/2 PPD Surgical History Cervical Conization/LEEP LEEP. Repair of umbilical hernia in childhood Social History Smoking/Tobacco Use Status: Current every day Tobacco Type: cigarettes Smoking risk assessment performed?: Yes Alcohol Intake: former Drug use: Occasionally Substance use type: marijuana Details: on methadone Do you feel safe at home: Yes Do you feel safe in your relationship?: Yes Female Reproductive History Menstrual Age of Menarche: 15 Duration of menses: 3-5 days control method: none History History 3 Para 2 Hx # Term Pregnancies Multiple births Hx # Pregnancies Ectopic pregnancies AB induced Hx Number of Living Children AB spontaneous Past Pregnancies Del. Date GA/Weeks # Preg Succ Route Wgt Sex Labor Lgth Anesth esia Location [facility] 09/29/06 34 No Yes vaginal 2296.311 g Female 04/05/17 34 No Yes vaginal 2182.913 g Female Delivery Date: 09/29/06 Last Updated by: Sofie Eagle- baby in [facility] for 3 weeks d/t prematurity Delivery Date: 04/05/17 Last Updated by: Sofie Rojas- delivered at [facility], kept for prematurity for three weeks. Exam Narrative Exam Narrative: General: A,A Ox3, Calm, no apparent distress, well developed, pleasant and cooperative Head Size/Shape: normocephalic, atraumatic Eyes Pupils: PERRLA Extraocular Mobility: intact and symmetrical Conjunctiva: non-injected, anicteric, no discharge Ears, Nose, Throat Nares: patent bilaterally Oral Cavity: moist, poor dentition Neck: no masses, no crepitus Lymph Nodes: no cervical lymphadenopathy Respiratory Respiratory Effort: no dyspnea Auscultation: clear to auscultation bilaterally, normal breath sounds, no wheezing, no rales/crackles Cardiovascular Heart Auscultation: regular rate and rhythm, normal S1, normal S2, no murmurs, no rubs, no gallops, Pulse Quality: +2 equal bilaterally, location(s) radial Abdomen Inspection and Palpation: soft, non-tender, non-distended, no hepatosplenomegaly Musculoskeletal System Joints, Bones, and Muscles: no deformities Extremities: warm and well-perfused, no cyanosis, capillary refill <2 seconds Skin Skin Inspection: no rash, no lesions, no bruising Neurological grossly intact Psychiatric: good insight, good judgement, normal mood and affect Course Vital Signs Vital signs: Vital Signs Temperature 37.0 C 04/30/23 15:08 Pulse 77 04/30/23 15:08 Respiratory Rate 20 04/30/23 15:08 Blood Pressure 137/66 04/30/23 15:08 Pulse Oximetry 99 04/30/23 15:08 Temperature 37.0 C 04/30/23 15:08 Pulse 77 04/30/23 15:08 Respiratory Rate 20 04/30/23 15:08 Respiratory Effort Normal 04/30/23 15:17 Blood Pressure 137/66 04/30/23 15:08 Blood Pressure Position Supine 04/30/23 15:08 Pulse Oximetry 99 04/30/23 15:08 Oxygen Delivery Method Room Air 04/30/23 15:08 Oxygen Flow Rate 0 04/30/23 15:08
[2023-04-30] MEDS: Ondansetron 4 MG/2 ML VIAL IVP (15:28)
[2023-04-30] MEDS: Normal Saline 1,000 ML 1000 ML IV ×2 (15:28→16:55)
[2023-04-30 15:39] LABS: HCT 42.8 % (36.0-46.0); HGB 14.6 g/dL (11.2-15.7); MCH 28.7 pg (27.0-33.0); MCHC 34.1 % (32.0-36.0); MCV 84 fL (80-95); MPV 9.7 fL (8.0-11.0); Platelet Count 457 10^3/uL (130-400); RBC 5.08 10^6/uL (3.93-5.22); RDW 12.1 % (11.7-14.6); RDW-SD 36.4 fL; WBC 24.49 10^3/uL (4.4-10.8)
[2023-04-30 15:55] LABS: Absolute Basophil Count 0.24 10^3/uL (0.0-0.2); Absolute Lymphocyte Count 3.18 10^3/uL (1.2-3.4); Absolute Monocyte Count 1.22 10^3/uL (0.1-0.8); Absolute Neutrophil Count 19.84 10^3/uL (1.2-6.7); Atypical Lymphocytes % 2; Bands % 2; Diff Comment Manual Differential; RBC Morphology Normal
[2023-04-30 15:56] LABS: ALT 27 U/L (14-59); AST 23 U/L (15-37); Alkaline Phosphatase 47 U/L (46-116); Anion Gap 16.9 mmol/L (3-11); BUN 5 mg/dL (7-18); Bilirubin, Total 0.5 mg/dL (0.2-1.0); CO2 21.1 mmol/L (21.0-32.0); CREATININE 0.9 mg/dL (0.55-1.02); Calcium 9.9 mg/dL (8.5-10.1); Chloride 101 mmol/L (98-107); Estimated GFR 84.97 (mL/min/1.73m2); Glucose 174 mg/dL (74-106); Magnesium 1.5 mg/dL (1.8-2.4); Potassium 3.1 mmol/L (3.5-5.1); Sodium 139 mmol/L (136-145); Total Protein 8.8 g/dL (6.4-8.2)
[2023-04-30 15:57] LABS: ETHANOL BLOOD < 3.0 mg/dL (<10)
[2023-04-30] MEDS: MAGNESIUM SULFATE 2 GM/50 ML BAG IVPB (16:13)
[2023-04-30] MEDS: POTASSIUM CHLORIDE 10 MEQ/100 ML BAG 100 MEQ IVPB ×2 (16:13→17:32)
[2023-04-30 16:28] LABS: HCG Qual (Serum) Positive
[2023-04-30 16:51] LABS: Bilirubin Small (Negative); Blood Negative (Negative); Clarity Clear (Clear); Glucose Negative (Negative); Ketones >=160 mg/dL (Negative); Leukocyte Esterase Small (Negative); Nitrite Negative (Negative); Specific Gravity 1.025 (1.005-1.025)
[2023-04-30] MEDS: Prochlorperazine 10 MG/2 ML VIAL IVP (16:55)
[2023-04-30 17:02] LABS: Bacteria Few HPF (Negative); Epithelial Cells Few HPF (Negative); RBC 0-2 HPF (0-2)
[2023-04-30 17:03] LABS: C & S Indicated? Yes; Casts Negative LPF (Negative); Crystals Negative HPF (Negative); Mucus Moderate (Negative)
[2023-04-30 17:18] LABS: HCG Quant, Pregnancy 698 mIU/mL (1-3)
[2023-04-30 17:30] LABS: *AMPHETAMINES SCREEN URINE Negative (Negative); *BARBITURATES SCREEN URINE Negative (Negative); *BENZODIAZEPINES SCREEN URINE Negative (Negative); Cannabinoids THC Positive (Negative); Cocaine Screen,Urine Negative (Negative); METHADONE URINE SCREEN Positive (Negative); OPIATES URINE SCREEN Negative (Negative)
[2023-04-30 17:31] LABS: Tricyclic Antidepressants Negative (Negative)
[2023-04-30] MEDS: Acetaminophen 500 MG TAB 1000 MG PO (17:32)
--- NOTE | 2023-04-30 17:51 | NUR.NOTE ---
Referral per Dr. Chaves to [facility] when avail as patient is . Put the referral in the care [facility] for follow up assistance.Nursing Note:
--- NOTE | 2023-05-02 09:15 | NUR.NOTE ---
Nursing Note: in chart for antibiotics
== END 2023-04-30 18:08 | disposition home or self-care (01) ==
PROVIDERS: Emergency Provider Emergency Medicine; PCP Nurse Practitioner Family
DX: O21.8 Other vomiting complicating pregnancy (principal); O26.891 Other specified pregnancy related conditions, first trimester; E87.6 Hypokalemia; E83.42 Hypomagnesemia; O99.321 Drug use complicating pregnancy, first trimester; F11.20 Opioid dependence, uncomplicated; Z3A.01 Less than 8 weeks gestation of pregnancy
CPT/HCPCS: 80053; 80307; 96361; 96365; 96375; 99284; 80320; 81003; 81015; 83735; 84702; 84703; 85025; 87086; 99283; J0780; J2405; J3480

== ENCOUNTER 2023-05-01 11:14 | Observation (INO) | payer MEDICAID, SELFPAY ==
[2023-05-01] VITALS (46 sets, daily range): BP systolic 122–181; BP diastolic 68–120; PULSE 72–112; RESP 12–31; TEMP 36.6–37.5; O2SAT 95–100
--- NOTE | 2023-05-01 11:15 | RT.EKG_ITS ---
APPROVED REPORT Exam: Resting ECG Reason for Exam: on methadone, check QT Patient Location: E HR:84 bpm ECG Measurements Heart Rate 84 AXIS NE 119 P 83 QRSd 75 QRS 83 QT 462 T 86 QTc 546 Conclusion Sinus rhythm.. V-rate 60- 99 Interpretation limited 2/t poor baseline; no overt ischemic changes Borderline QT prolongation
--- NOTE | 2023-05-01 11:24 | ED.GENADUL_ITS ---
Discharge Plan Disposition Patient Disposition: Admit to [facility] Condition: Improving Discharge Details Chief Complaint: Nausea/Vomit/Diar Clinical Impression: Nausea & vomiting, , Hypokalemia Admit Date/Time: 05/01/23 15:48 Admit Provider: Reynaldo Lowe Attending Provider: Reynaldo Lowe Primary Care Provider: MINNIE NICHOLS ED Provider: Suyapa Walsh Discharge Data Discharge Date/Time-TO BE ENTERED AT DEPARTURE: 05/01/23 16:49 Medical Decision Making Patient is a 37 year old female, estimated 2 wk gestation, presenting via EMS with c/c of nausea, vomiting and abdominal pain. She was seen here yesterday for the same and was found to be at that time. She reports that she had issues with hyperemesis when she was last which was about 6 years ago. States that during that time she also suffered from preeclampsia and delivered at [facility] but otherwise had uncomplicated . She denies any fevers or chills. Continues to have diffuse abdominal discomfort. Has not dosed her methadone today. Unclear if she was able to keep most of her methadone down yesterday. One of the differentials at the time that she left was possible withdrawal symptoms. I did clarify with Chris and a advised that she is on 40 mg and did not dose today. Surgical history pertinent for umbilical hernia repair. Denies any change in urinary habits. Denies any vaginal discharge. No pain into her back. She states that in her more recent episodes of emesis she has noted some flecks of blood but no bright red or orion hematemesis. On exam, patient is holding emesis bag, appears fatigued. She is he modynamically stable although slightly hypertensive. She appears dehydrated. Lungs are clear, normal cardiac exam. Abdominal exam shows hypoactive bowel sounds. She is diffusely tendernes with no rebound tenderness or gaurding. No focal area of pain. Patient had CT yesterday and was concerning for possible gastroenteritis. Her WBC yesterday was elevated at 25,000. She typically runs high in the elevated teens. Will obtain ECG to evaluate QT prior to giving zofran. Will give compazine and benadryl, hydrate the patient and dose her 40mg methadone. I do not see need to repeat imaging at this time. US guided IV placed in right arm by myself. Critical WBC 32, critical K of 2.8. Will begin K and mag. Will hydrate the patient and continue to reassess. ECG reviewed by Dr. Albright, borderline QT prlongation, no overt ischemic changes. Patient had initially had some relief but began further nausea/vomiting. Spoke with Dr. Smith who advised that Phenergan would be safe, will give rectally. She advised that given how early she is, this is unlikely to be hyperemesis with . Thinking more withdrawal. She denies routine marijuana use. US obtained of abdomen: FINDINGS: There is no ascites evident. LIVER: There are no hepatic lesions evident nor obvious dilatation of intrahepatic ducts.? Liver is hyperechoic indicating element of steatosis.? This was also on CT scan May 1000. GALLBLADDER/BILIARY: There are no gallstones. No gallbladder wall edema nor pericholecystic fluid. The common hepatic duct isnot dilated, measuring 5mm at the level of isabel hepatis. PANCREAS: There is no evidence of pancreatic mass nor dilatation of the pancreatic duct. SPLEEN: The spleen is not enlarged and there are no intrasplenic lesions evident. KIDNEYS:Kidneys exhibit normal size with no evidence of solid mass, calculus, nor hydronephrosis. No cortical cysts evident. ABDOMINAL AORTA: There is no evidence of abdominal aortic aneurysm. IVC: Normal diameter where visualized. IMPRESSION: 1.? No evidence of cholelithiasis nor dilatation of the biliary tree.? 2.? Hepatic steatosis.? No discrete focal hepatic lesions. 3.? No other significant ultraound findings in the upper abdomen and there is no ascites. 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 Patient did initially respond to the rectal Phenergan but again began having increased pain as well as nausea. Given her status, concern about giving benzodiazepines we will give a small dose of narcotics as I am concerned that the patient is likely having withdrawal. With the morphine on board, patient was able to take her oral methadone. She reports that now she is imporving, she continues to have abdoimnal pain and some nausea. As she is not able to take PO K+ and continues to have recurrent symptoms, we discussed admission which patient would prefer. consulted with hospitalist who agrees to admission for hypokalemia, nausea, vomiting, and abomdinal pain. Again,, primarily concerned for possible methadone withdrawal with her improvement and that OBGYN does not feel that this is associated with hyperemesis yet. Seh denies routine marijuana use. Consulte albert Lowe who agrees to admission. HPI General Date/Time Provider Initiated Documentation: 05/01/23 11:18 . Limitations to Documentation: no limitations . Information obtained by: patient, EMS, RN notes reviewed and old records reviewed . History of Present Illness 37 year old F presents to the emergency department with the chief complaint of nausea, vomiting, abdominal pain, described as severe and similar to prior episodes (here yesterday for the same), with intensity rated at 10. Quality is described as stabbing, and is localized to the abdomen (diffuse abdominal pain, no radiation). Patient reports no radiation. Patient started experiencing this day(s) and it has been constant. No relieving factors improve symptom(s), No exacerbating factors reported . Patient notes loss of appetite, malaise and nausea/vomiting; denies chest pain, cough, fever/chills, headaches, rash and shortness of breath. Patient did receive the following treatments prior to arrival, none Related Data Home Medications Medication Instructions Recorded Confirmed omeprazole 20 mg capsule,delayed 20 mg PO DAILY 07/01/21 05/01/23 release budesonide-formoterol HFA 80 1 puff inhalation BID 08/27/21 01/25/23 mcg-4.5 mcg/actuation aerosol inhaler (Symbicort) clonidine HCl 0.1 mg tablet 0.1 mg PO DAILY 09/29/22 05/01/23 fluoxetine 40 mg capsule 40 mg PO DAILY 09/29/22 05/01/23 hydroxyzine pamoate 25 mg capsule 25 mg PO BID PRN 09/29/22 05/01/23 levonorgestrel-ethinyl estradiol 1 tab PO DAILY #84 tabs 09/29/22 01/25/23 0.1 mg-20 mcg tablet levothyroxine 50 mcg tablet 75 mcg PO DAILY 12/13/22 05/01/23 prazosin 1 mg capsule (Minipress) 1 mg PO QHS 12/13/22 methadone 10 mg/mL oral concentrate 40 mg PO DAILY 04/13/23 05/01/23 Previous Rx's Medication Instructions Recorded levonorgestrel-ethinyl estradiol 1 tab PO DAILY #84 tabs 09/29/22 0.1 mg-20 mcg tablet Allergies Allergy/AdvReac Type Severity Reaction Status Date / Time No Known Drug Allergies Allergy none Verified 04/30/23 15:12 General Stated Complaint: Nausea/Vomit/Diar ALONA: 3 Review of Systems Constitutional Constitutional: Reports as per HPI, Denies chills, Denies fever(s) and Denies headache(s) ENT Ears, Nose, Mouth, and Throat: Denies headache(s) Cardiovascular Cardiovascular: Reports as per HPI, Denies chest pain and Denies dyspnea Respiratory Respiratory: Reports as per HPI, Denies cough and Denies dyspnea Gastrointestinal Gastrointestinal: Reports as per HPI, Reports vomiting and Reports hematemesis (small streaks of blood in emesis) Genitourinary Genitourinary: Denies abnormal vaginal bleeding (, no cramping or bleeding, no vaginal discharge) Musculoskeletal Musculoskeletal: Reports as per HPI and Denies back pain Integumentary/Breasts Skin/Breast: Reports as per HPI and Denies rash Neurologic Neurologic: Reports as per HPI and Denies headache(s) [facility] All Active Problems (Updated 05/01/23 @ 20:56 by GLENNA Mello) Hypokalemia (Acute) Tobacco abuse (Acute) 1/2 PPD History of heroin abuse (Acute) Nausea & vomiting (Acute) (Acute) Left carpal tunnel syndrome (Acute) Right carpal tunnel syndrome (Acute) Medical History Abdominal complaints Anxiety and depression Bilateral carpal tunnel syndrome Contraceptive surveillance OCPs for amenorrhea February 2022 Drug induced constipation Elevated liver function tests GERD (gastroesophageal reflux disease) Hepatitis C antibody test positive 2015. Undetectable viral load. History of heroin abuse History of complication [place] 34w [place] [facility] . [place]33w for severe preeclampsia[place] [facility] History of pyelonephritis (~2014) during 2nd . chronic suppression during . Hoarseness Hypothyroidism Insomnia Nightmares OCD (obsessive compulsive disorder) Personal history of cervical dysplasia (09/17/15) HAYLEY II 2012, LEEP 2013. WNL 2021 Stress incontinence Substance abuse in remission Hx inpt tx in 2014, in [facility] program, sees therapist Thyromegaly Tobacco abuse 1/2 PPD Surgical History Cervical Conization/LEEP LEEP. Repair of umbilical hernia in childhood Social History Smoking/Tobacco Use Status: Current every day Tobacco Type: cigarettes Smoking risk assessment performed?: Yes Alcohol Intake: former Drug use: Occasionally Substance use type: marijuana Details: on methadone - pt stated last time she had alcohol was this weekend, denies any blackouts Housing: house Do you feel safe at home: Yes Do you feel safe in your relationship?: Yes Female Reproductive History Menstrual Age of Menarche: 15 Duration of menses: 3-5 days control method: none History History 3 Para 2 Hx # Term Pregnancies Multiple births Hx # Pregnancies Ectopic pregnancies AB induced Hx Number of Living Children AB spontaneous Past Pregnancies Del. Date GA/Weeks # Preg Succ Route Wgt Sex Labor Lgth Anesth esia Location [facility] 09/29/06 34 No Yes vaginal 2296.311 g Female 04/05/17 34 No Yes vaginal 2182.913 g Female Delivery Date: 09/29/06 Last Updated by: Sofie Eagle- [place] [facility] [place] 3 weeks d/t prematurity Delivery Date: 04/05/17 Last Updated by: Sofie Rojas- delivered [place] [facility] kept for prematurity for three weeks. Exam Const General: cooperative, uncomfortable, well developed and ill appearing acutely Nutritional Appearance: well nourished and overweight Orientation: alert and awake [facility] Head: normal to inspection Mouth: moist mucous membranes Resp Effort & Inspection: normal respiratory effort, able to speak in complete sentences and no respiratory distress Auscultation: clear to auscultation bilaterally, no rales, no rhonchi and no wheezes Cardio Rate: regular rate Rhythm: regular rhythm Heart Sounds: S1 normal and S2 normal GI Inspection: normal to inspection Palpation: soft, no hepatosplenomegaly, not firm, no guarding, no masses, no pulsatile masses, not rigid, tender (diffusely tender, no focal area of pain) with no rebound tenderness and No ascites Percussion: normal to percussion Auscultation: hypoactive bowel sounds Back/Spine/Pelvis Back: no CVA tenderness Skin General skin exam: no rashes or lesions noted Trauma: no lacerations or abrasions Neuro General: patient alert and patient awake Cognition: normal cognition Speech: speech normal Gait: normal gait Course Vital Signs Vital signs: Vital Signs Temperature 36.6 C 05/01/23 11:13 Pulse 78 05/01/23 11:13 Respiratory Rate 20 05/01/23 11:13 Blood Pressure 166/91 H 05/01/23 11:13 Pulse Oximetry 97 05/01/23 11:13 Temperature 36.6 C 05/01/23 11:13 Temperature Source Skin 05/01/23 11:13 Pulse 78 05/01/23 11:13 Respiratory Rate 20 05/01/23 11:13 Blood Pressure 166/91 H 05/01/23 11:13 Blood Pressure Position Supine 05/01/23 11:13 Pulse Oximetry 97 05/01/23 11:13 Oxygen Delivery Method Room Air 05/01/23 11:13 Oxygen Flow Rate 0 05/01/23 11:13 Pain Level 10 05/01/23 11:13
[2023-05-01 11:34] LABS: Abs Immature Grans 0.26 10^3/uL (0.0-0.06); Absolute Monocyte Count 1.47 10^3/uL (0.1-0.8); Basophils % 0.2; HCT 42.6 % (36.0-46.0); HGB 14.3 g/dL (11.2-15.7); Immature Grans % 0.8; Lymphocytes % 6.1; MCH 28.1 pg (27.0-33.0); MCHC 33.6 % (32.0-36.0); MCV 84 fL (80-95); MPV 9.6 fL (8.0-11.0); Monocytes % 4.5; Neutrophils % 88.4; Platelet Count 480 10^3/uL (130-400); RBC 5.08 10^6/uL (3.93-5.22); RDW 12.1 % (11.7-14.6); RDW-SD 36.8 fL
[2023-05-01 11:47] LABS: ALT 30 U/L (14-59); AST 22 U/L (15-37); Albumin 4.2 g/dL (3.4-5.0); Alkaline Phosphatase 49 U/L (46-116); Anion Gap 14.4 mmol/L (3-11); BUN 4 mg/dL (7-18); Bilirubin, Total 0.5 mg/dL (0.2-1.0); CO2 26.6 mmol/L (21.0-32.0); CREATININE 0.9 mg/dL (0.55-1.02); Calcium 9.6 mg/dL (8.5-10.1); Chloride 100 mmol/L (98-107); Estimated GFR 84.97 (mL/min/1.73m2); Glucose 144 mg/dL (74-106); Lipase 20 U/L (16-77); Magnesium 1.9 mg/dL (1.8-2.4); Sodium 141 mmol/L (136-145); Total Protein 9.1 g/dL (6.4-8.2)
[2023-05-01 11:48] LABS: Absolute Basophil Count 0.07 10^3/uL (0.0-0.2); Absolute Lymphocyte Count 1.99 10^3/uL (1.2-3.4); Absolute Neutrophil Count 28.89 10^3/uL (1.2-6.7)
[2023-05-01 11:49] LABS: WBC 32.68 10^3/uL (4.4-10.8)
[2023-05-01 11:50] LABS: Potassium 2.8 mmol/L (3.5-5.1)
[2023-05-01 11:52] LABS: Diff Comment Diff Reviewed; RBC Morphology Normal
[2023-05-01] MEDS: diphenhydrAMINE 50 MG/ML VIAL 25 MG IVP (12:11)
[2023-05-01] MEDS: Prochlorperazine 10 MG/2 ML VIAL IVP ×2 (12:11→19:31)
[2023-05-01] MEDS: Lactated Ringers 1,000 ML 1000 ML IV ×2 (12:14→15:11)
[2023-05-01] MEDS: MAGNESIUM SULFATE 1 GM/100 ML BAG IVPB (12:26)
[2023-05-01] MEDS: POTASSIUM CHLORIDE 20 MEQ/100 ML BAG 50 MEQ IVPB ×2 (12:27→15:31)
--- NOTE | 2023-05-01 13:00 | DI.US_ITS ---
Exam(s) US ABDOMEN EXAM: US ABDOMEN CLINICAL HISTORY: diffuse pain, currently TECHNIQUE: Ultrasound of complete upper abdomen performed using standard protocol. COMPARISON: US US PELVIS TRANSVAGINAL from 07/14/[address] ABDOMEN PELVIS W from 05/19/2022 FINDINGS: There is no ascites evident. LIVER: There are no hepatic lesions evident nor obvious dilatation of intrahepatic ducts. Liver is h yperechoic indicating element of steatosis. This was also on CT scan May 1000. GALLBLADDER/BILIARY: There are no gallstones. No gallbladder wall edema nor pericholecystic fluid. The common hepatic duct isnot dilated, measuring 5mm at the level of isabel hepatis. PANCREAS: There is no evidence of pancreatic mass nor dilatation of the pancreatic duct. SPLEEN: The spleen is not enlarged and there are no intrasplenic lesions evident. KIDNEYS:Kidneys exhibit normal size with no evidence of solid mass, calculus, nor hydronephrosis. No cortical cysts evident. ABDOMINAL AORTA: There is no evidence of abdominal aortic aneurysm. IVC: Normal diameter where visualized. IMPRESSION: 1. No evidence of cholelithiasis nor dilatation of the biliary tree. 2. Hepatic steatosis. No discrete focal hepatic lesions. 3. No other significant ultrasound findings in the upper abdomen and there is no ascites. DATA REPOSITORY:
[2023-05-01] MEDS: Promethazine 25 MG SUPP PR (13:15)
[2023-05-01] MEDS: MORPHine 4 MG/ML SYR IVP (14:30)
[2023-05-01] MEDS: Methadone Liquid 10 MG/ML 40 MG PO (14:56)
[2023-05-01 16:31] LABS: Bilirubin Negative (Negative); Blood Negative (Negative); Clarity Clear (Clear); Glucose Negative (Negative); Ketones 80 mg/dL (Negative); Leukocyte Esterase Negative (Negative); Nitrite Negative (Negative); Urobilinogen 0.2 mg/dL (Up to 0.2)
[2023-05-01 16:54] LABS: Bacteria Negative HPF (Negative); C & S Indicated? No/Sq. Contamination; Crystals Moderate Amorphous HPF (Negative); Epithelial Cells Many HPF (Negative); Mucus Moderate (Negative); Other Cells Rare Transitional (Negative); RBC 0-2 HPF (0-2)
--- NOTE | 2023-05-01 17:28 | W.PM.HP.N ---
Date of service: 05/01/23 Time of Service: 17:29 Assessment and Plan Assessment and plan (1) Nausea & vomiting: Status: Acute Assessment and plan: unable to tolerate PO after IV fluids and antiemetics in the ED referred to observation for symptom management continue prn compazine and benadryl. IV fluids her physical exam concerning for opioid withdrawal. she was given IV morphine and her methadone dose in the ED. also consider cannabanoid hyperemesis. also less likely hyperemesis from . (2) History of heroin abuse: Status: Acute Assessment and plan: continue methadone (3) Tobacco abuse: Status: Acute Assessment and plan: nicotine replacement while hospitalized (4) Hypokalemia: Status: Acute Assessment and plan: replete and follow from GI losses discussed with DR Lowe History of Present Illness History of Present Illness Chief Complaint: nausea and vomiting Narrative: This is a 37-year-old female patient with a history of opioid addiction reported as IV heroin who claims she has been dry for a while on a methadone taper who presented to the emergency department yesterday with complaints of intractable nausea and vomiting. She thought that she was just hung over but symptoms have persisted into today so she returned for evaluation. She was unable to take her methadone this morning. She was given IV hydration Benadryl Compazine and morphine for her symptoms in the emergency department her nausea and vomiting did improve some and they were able to get methadone 40 mg and she has not vomited since but continues to complain of nausea so was unable to be safely discharged hospitalist services was Contacted to admit her to the medical surgical unit Review of Systems All systems reviewed & are unremarkable except as noted in HPI and below PFSH All Active Problems (Updated 05/01/23 @ 20:56 by GLENNA Mello) Hypokalemia (Acute) Tobacco abuse (Acute) 1/2 PPD History of heroin abuse (Acute) Nausea & vomiting (Acute) (Acute) Left carpal tunnel syndrome (Acute) Right carpal tunnel syndrome (Acute) Medical History Abdominal complaints Anxiety and depression Bilateral carpal tunnel syndrome Contraceptive surveillance OCPs for amenorrhea February 2022 Drug induced constipation Elevated liver function tests GERD (gastroesophageal reflux disease) Hepatitis C antibody test positive 2015. Undetectable viral load. History of heroin abuse History of complication 2007 IOL 34w EGA @ [facility] [place]. 2016 . IOL @33w for severe preeclampsia. [facility] [place] History of pyelonephritis (~2014) during 2nd . chronic suppression during . Hoarseness Hypothyroidism Insomnia Nightmares OCD (obsessive compulsive disorder) Personal history of cervical dysplasia (09/17/15) HAYLEY II 2012, LEEP 2013. WNL 2021 Stress incontinence Substance abuse in remission Hx inpt tx in 2014, in [facility] program, sees therapist Thyromegaly Tobacco abuse 1/2 PPD Surgical History Cervical Conization/LEEP LEEP. Repair of umbilical hernia in childhood Social History Smoking/Tobacco Use Status: Current every day Tobacco Type: cigarettes Smoking risk assessment performed?: Yes Alcohol Intake: former Drug use: Occasionally Substance use type: marijuana Details: on methadone - pt stated last time she had alcohol was this weekend, denies any blackouts Housing: house Do you feel safe at home: Yes Do you feel safe in your relationship?: Yes Female Reproductive History Menstrual Age of Menarche: 15 Duration of menses: 3-5 days control method: none History History 3 Para 2 Hx # Term Pregnancies Multiple births Hx # Pregnancies Ectopic pregnancies AB induced Hx Number of Living Children AB spontaneous Past Pregnancies Del. Date GA/Weeks # Preg Succ Route Wgt Sex Labor Lgth Anesthesia Location Prov Complic 09/29/06 34 No Yes vaginal 2296.311 g Female 04/05/17 34 No Yes vaginal 2182.913 g Female Delivery Date: 09/29/06 Last Updated by: Sofie Eagle- baby in [facility] [place] 3 weeks d/t prematurity Delivery Date: 04/05/17 Last Updated by: Sofie Rojas- delivered at [facility] [place], kept for prematurity for three weeks. Meds Allergies and Home Medications Allergies Allergy/AdvReac Type Severity Reaction Status Date / Time No Known Drug Allergies Allergy none Verified 04/30/23 15:12 Home Medications Medication Instructions Recorded Confirmed Type omeprazole 20 mg capsule,delayed 20 mg PO DAILY 07/01/21 05/01/23 History release budesonide-formoterol HFA 80 1 puff inhalation BID 08/27/21 01/25/23 History mcg-4.5 mcg/actuation aerosol inhaler (Symbicort) clonidine HCl 0.1 mg tablet 0.1 mg PO DAILY 09/29/22 05/01/23 History fluoxetine 40 mg capsule 40 mg PO DAILY 09/29/22 05/01/23 History hydroxyzine pamoate 25 mg capsule 25 mg PO BID PRN 09/29/22 05/01/23 History levothyroxine 50 mcg tablet 75 mcg PO DAILY 12/13/22 05/01/23 History prazosin 1 mg capsule (Minipress) 1 mg PO QHS 12/13/22 History methadone 10 mg/mL oral concentrate 40 mg PO DAILY 04/13/23 05/01/23 History ondansetron 4 mg disintegrating 4 mg PO Q6H PRN #10 tabs 05/02/23 Rx tablet promethazine 25 mg tablet 25 mg PO QID PRN #10 tabs 05/02/23 Rx Exam Const General: acute distress moderate (restless, fidgeting, moving legs constantly in bed during interview) and ill appearing (older than stated age) chronically Nutritional Appearance: overweight Orientation: alert, awake and oriented x3 HENMT Head: normal to inspection, normocephalic and atraumatic Mouth: moist mucous membranes abnormal (dry) Teeth and gingiva: caries, gingiva abnormal diffusely erythematous and receding and poor dentition (many missing teeth, severe decay) Chest Chest: normal inspection of the chest Resp Effort & Inspection: normal respiratory effort Auscultation: clear to auscultation bilaterally Cardio Rate: regular rate Rhythm: regular rhythm Heart Sounds: no murmurs Skin Lesions: lesion noted (various areas from picking, none appear infected, no drainage or red) Rashes: no rashes Neuro General: patient alert, patient awake, patient oriented x3, tone normal and no focal motor deficits Extrem General: pedal edema Psych Appearance: disheveled (unkempt) Mental Status: mental status grossly normal Speech and Movement: speech and movement normal and restless Mood: congruent mood Affect: normal affect Attitude: cooperative Thought Process: normal Thought Content: normal Results Labs 05/01/23 11:27 05/01/23 11:27 Labs: Laboratory Results - last 24 hr 05/01/23 05/01/23 05/01/23 11:27 11:27 16:25 WBC 32.68 H* RBC 5.08 Hgb 14.3 Hct 42.6 MCV 84 MCH 28.1 MCHC 33.6 RDW 12.1 Plt Count 480 H MPV 9.6 Immature Gran % 0.8 Neutrophils % 88.4 Lymphocytes % 6.1 Monocytes % 4.5 Eosinophils % 0.0 Basophils % 0.2 Nucleated RBC % 0.0 Absolute Neutrophils 28.89 H Absolute Lymphocytes 1.99 Absolute Monocytes 1.47 H Absolute Eosinophils 0.00 Absolute Basophils 0.07 RBC Morphology Normal Sodium 141 Potassium 2.8 L* Chloride 100 Carbon Dioxide 26.6 Anion Gap 14.4 H BUN 4 L Creatinine 0.9 Est GFR (CKD-EPI 2020) 84.97 Glucose 144 H Calcium 9.6 Magnesium 1.9 Total Bilirubin 0.5 AST 22 ALT 30 Alkaline Phosphatase 49 Total Protein 9.1 H Albumin 4.2 Lipase 20 Urine Color Yellow Urine Clarity Clear Urine pH 7.0 Ur Specific [place] 1.020 Urine Protein 30 H Urine Ketones 80 H Urine Blood Negative Urine Nitrite Negative Urine Bilirubin Negative Urine Urobilinogen 0.2 Ur Leukocyte Esterase Negative Urine RBC 0-2 Urine WBC 5-10 Ur Epithelial Cells Many Urine Crystals Moderate Amorphous Urine Bacteria Negative Urine Mucus Moderate Urine Other Rare Transitional Ur Culture Indicated? No/Sq. Contamination Urine Glucose Negative Last Vital Signs Temp 36.6 C 05/01/23 11:13 Pulse 94 H 05/01/23 16:32 Resp 20 05/01/23 16:40 BP 137/120 H 05/01/23 16:32 Pulse Ox 97 05/01/23 16:40 PAWSS Have you Been Recently Intoxicated or Drunk Within the Last 30 days?: No Have you Ever Experienced Previous Episodes of Alcohol Withdrawal?: No Have you ever Experienced Withdrawal Seizures?: No Have you ever Experienced Delirium Tremens(DT)s?: No Have you ever undergone Alcohol Rehabilitation Treatment (i.e, inpt ot outpatient treatment programs)?: No Have you ever Experienced Blackouts?: No Have you ever Combined Alcohol with other Downers within the last 90 days?: No Have you ever Combined Alcohol with any other Substance of Abuse during the last 90 days?: No Positive Blood Alcohol level on Presentation? [PCS.BAL]: No Evidence of Increased Autonomic Activity (i.e. HR>120, tremor, sweating, agitation, nausea)?: No Result: 0 Time Spent Time spent with Patient: 40-54 minutes Time was spent: preparing to see the patient(eg.review tests), obtaining and/or reviewing separately otained hiistory, ordering medications,tests, procedures, referring, communicating with other health career and guidance counselor and indepentently interpreting results
[2023-05-01] MEDS: Nicotine 21 MG/24 HR PATCH TD (18:13)
[2023-05-01] MEDS: Pantoprazole 40 MG VIAL IVP (18:14)
--- NOTE | 2023-05-01 18:24 | NUR.NOTE ---
[id number] notified special agent in charge of abnormal labs, elevated BP with requested medications, and request for tele. No further orders given at this time, will continue to monitor. Nursing Note:
--- NOTE | 2023-05-01 18:25 | NUR.NOTE ---
Made second request for BP meds d/t elevated BP at 1800. No further orders given at this time, will continue to monitor. Nursing Note:
[2023-05-01] MEDS: POTASSIUM CHLORIDE/D5-0.45NACL 1,000 ML 100 MEQ IV (19:27)
[2023-05-01] MEDS: Budesonide/Formoterol 80/4.5 6.9 GM 60 PUFF INH IH (21:18)
[2023-05-02] MEDS: Prochlorperazine 10 MG/2 ML VIAL IVP ×2 (02:28→07:07)
[2023-05-02] MEDS: Normal Saline Flush 10 ML SYR IVP (02:29)
[2023-05-02 04:36] VITALS: BP 145/86; PULSE 74; RESP 18; TEMP 37.1; O2SAT 96
[2023-05-02] MEDS: POTASSIUM CHLORIDE/D5-0.45NACL 1,000 ML 100 MEQ IV (05:46)
[2023-05-02] MEDS: Levothyroxine 75 MCG TAB PO (05:46)
[2023-05-02 07:18] VITALS: BP 163/98; PULSE 86; RESP 17; TEMP 37; O2SAT 96
[2023-05-02] MEDS: Budesonide/Formoterol 80/4.5 6.9 GM 60 PUFF INH IH (08:23)
--- NOTE | 2023-05-02 08:48 | INITIAL_ITS ---
Date of service: 05/02/23 Time of Service: 08:48 Care Management Initial Assmt Initial Assessment REASON FOR HOSPITALIZATION:: Nausea and vomiting PREVIOUS FUNCTIONAL STATUS/SOCIAL/FAMILY SUPPORTS:: Gabi lives in [facility] with her boyfriend and his parents. She states she helps to take care of her mom, in addition to her boyfriend's parents. She also frequently babysits her 8 month old nephew. She enjoys spending time with family, playing with her dog, and watching television. She names her boyfriend as her support. Gabi is independent at baseline with her ADLs. CURRENT FUNCTIONAL STATUS:: Gabi is laying in bed when CM comes to meet with her. She reports feeling much better today but says her blood pressure remains high. She learned upon admission that she is . She states both she and her boyfriend are excited about having a child. ADVANCE DIRECTIVES:: None on file; CM offers form and patient declines. Has patient been provided with info about the portal/API?: Yes Did the patient sign up for the portal?: Yes CODE STATUS:: Full Code INSURANCE COVERAGE / FINANCIAL ISSUES:: Medicaid CURRENT HOME/COMMUNITY SERVICES/EQUIPMENT:: Gabi is enrolled in a MAT Program through [employer] [facility] in [facility]. She is on 2 Liters of nasal cannula ox ygen therapy at nighttime. [facility] provides her oxygen. PRIMARY CARE PHYSICIAN:: TAYLOR Burgos POTENTIAL DISCHARGE NEEDS:: Follow up appointments with PCP and [facility] and discharge plan of care. PATIENT/FAMILY EDUCATION NEEDS:: Review of discharge instructions including medications and follow up plan of care; discuss Ask Me Three and self management. ANTICIPATED BARRIERS TO DISCHARGE:: None identified at this time. TRANSPORTATION:: Via private vehicle with her boyfriend or mom. PLAN:: Gbai will be discharged home with no services when medically cleared by provider. She will follow-up with her PCP, [facility], [facility] and plan of care as instructed. She will be transported home via private vehicle by family when ready. CM will continue to follow. PFSH All Active Problems (Updated 05/01/23 @ 20:56 by GLENNA Mello) Hypokalemia (Acute) Tobacco abuse (Acute) 1/2 PPD History of heroin abuse (Acute) Nausea & vomiting (Acute) (Acute) Left carpal tunnel syndrome (Acute) Right carpal tunnel syndrome (Acute) Medical History Abdominal complaints Anxiety and depression Bilateral carpal tunnel syndrome Contraceptive surveillance OCPs for amenorrhea February 2022 Drug induced constipation Elevated liver function tests GERD (gastroesophageal reflux disease) Hepatitis C antibody test positive 2015. Undetectable viral load. History of heroin abuse History of complication 2006 IOL 34w EGA @ [facility] for IUGR. 2015 . IOL @33w for severe preeclampsia. [facility] History of pyelonephritis (~2014) during 2nd . chronic suppression during . Hoarseness Hypothyroidism Insomnia Nightmares OCD (obsessive compulsive disorder) Personal history of cervical dysplasia (09/17/15) HAYLEY II 2012, LEEP 2013. WNL 2021 Stress incontinence Substance abuse in remission Hx inpt tx in 2014, in [facility] program, sees therapist Thyromegaly Tobacco abuse 1/2 PPD Surgical History Cervical Conization/LEEP LEEP. Repair of umbilical hernia in childhood Social History Smoking/Tobacco Use Status: Current every day Tobacco Type: cigarettes Smoking risk assessment performed?: Yes Alcohol Intake: former Drug use: Occasionally Substance use type: marijuana Details: on methadone - pt stated last time she had alcohol was this weekend, denies any blackouts Housing: house Do you feel safe at home: Yes Do you feel safe in your relationship?: Yes Female Reproductive History Menstrual Age of Menarche: 15 Duration of menses: 3-5 days control method: none History History 3 Para 2 Hx # Term Pregnancies Multiple births Hx # Pregnancies Ectopic pregnancies AB induced Hx Number of Living Children AB spontaneous Past Pregnancies Del. Date GA/Weeks # Preg Succ Route Wgt Sex Labor Lgth Anesth esia Location Prov Complic 09/29/06 34 No Yes vaginal 2296.311 g Female 04/05/17 34 No Yes vaginal 2182.913 g Female Delivery Date: 09/29/06 Last Updated by: Sofie Eagle- baby in [facility] for 3 weeks d/t prematurity Delivery Date: 04/05/17 Last Updated by: Sofie Rojas- delivered at [facility], kept for prematurity for three weeks.
[2023-05-02] MEDS: FLUoxetine 20 MG CAP 40 MG PO (08:49)
[2023-05-02] MEDS: oxyCODONE 5 MG TAB PO (08:49)
[2023-05-02] MEDS: Pantoprazole 40 MG VIAL IVP (08:49)
[2023-05-02] MEDS: Nicotine 21 MG/24 HR PATCH TD (08:50)
[2023-05-02] MEDS: Methadone Liquid 10 MG/ML 40 MG PO (09:08)
--- NOTE | 2023-05-02 11:05 | DSE_ITS ---
Date of service: 05/02/23 Time of Service: 11:06 DS: Diagnosis Discharge Diagnosis (1) Nausea & vomiting: Status: Acute (2) History of heroin abuse: Status: Acute (3) Tobacco abuse: Status: Acute (4) Hypokalemia: Status: Acute Discharge Plan Disposition Patient Disposition: Home Condition: Stable Discharge Details Reason For Visit: Nausea and Vomitting Admit Date/Time: 05/01/23 15:48 Admit Provider: Reynaldo Lowe Attending Provider: Reynaldo Lowe Primary Care Provider: MINNIE NICHOLS Hospital Course Hospital Course: This is a 37-year-old female patient with a history of IV heroin abuse now on methadone treatment chronic cannabinoid use and tobacco use who returned to the emergency department after being evaluated and discharged for ongoing nausea and vomiting. On her first visit it was noted that she was is estimated she is only a few weeks along. She was given IV hydration and antiemetics symptoms improved but shortly after arriving home symptoms persisted so she returned again. She was unable to keep down her methadone so after additional IV fluids and antiemetics her methadone dose was given to her she received IV morphine in the interim to help as it was thought that possibly some of her symptoms were due to withdrawal. She was admitted to the hospitalist services as they were unable to discharge her she was unable to take oral intake. Overni ght she rested comfortably able to take clear liquids feeling improved and ready for discharge to home. She will need to follow-up with [facility] for medication recommendations. The last dose letter for her methadone was provided. She received methadone 40 mg orally today. Discharge discussed with Dr. Finn Faxon Meds and New Rx's Prescriptions: New ondansetron 4 mg tablet,disintegrating 4 mg PO Q6H PRNQty: 10 0RF promethazine 25 mg tablet 25 mg PO QID PRNQty: 10 0RF Continued omeprazole 20 mg capsule,delayed release(/EC) 20 mg PO DAILY fluoxetine 40 mg capsule 40 mg PO DAILY budesonide-formoterol [Symbicort] 80-4.5 mcg/actuation HFA aerosol inhaler 1 puff inhalation BID levothyroxine 50 mcg tablet 75 mcg PO DAILY methadone 10 mg/mL concentrate 40 mg PO DAILY Held clonidine HCl 0.1 mg tablet 0.1 mg PO DAILY Hold Instructions: Until discussed with your [facility] Patient Comments: TAKE ONE TABLET BY MOUTH AT BEDTIME Discontinued levonorgestrel-ethinyl estrad 0.1-20 mg-mcg tablet 1 tab PO DAILY Qty: 84 4RF No Action hydroxyzine pamoate 25 mg capsule 25 mg PO BID PRN Patient Comments: 09/29/22- pt reports taking one 25 mg cap in am and three 25 mg cap (75 mg total) at night. prazosin [Minipress] 1 mg capsule 1 mg PO QHS Patient Comments: not taking Discharge Instructions Instructions: Acute Nausea and Vomiting (DC), First Trimester (ED) Stand Alone Forms: Nursing Discharge Form Referrals: [facility] [Provider Group] - 06/05/23 11:00 am () MINNIE NICHOLS [facility] [Primary Care Provider] - (PCP office will call you to schedule a follow up appointment ) Activity:: Activity as Tolerated Equipment/Supplies:: No Equipment Needed Diet:: As Tolerated Discharge Orders Discharge Orders: Discharge Order (Routine); Ordered 05/02/23 Ordered By: Karen Hughes DS: Summary Time Spent with Patient providing and/or coordinating discharge services: Less than 30 minutes Status at Discharge Functional status at discharge: independent ambulation Overall status at discharge: patient is back to baseline Mental Status: mental status grossly normal Speech and Movement: speech and movement normal and restless Mood: congruent mood Affect: normal affect Exam Const General: ill appearing (older than stated age) chronically Nutritional Appearance: overweight Orientation: alert, awake and oriented x3 HENMT Head: normal to inspection, normocephalic and atraumatic Mouth: moist mucous membranes abnormal (dry) Teeth and gingiva: caries, gingiva abnormal diffusely erythematous and receding and poor dentition (many missing teeth, severe decay) Chest Chest: normal inspection of the chest Resp Effort & Inspection: normal respiratory effort Auscultation: clear to auscultation bilaterally Cardio Rate: regular rate Rhythm: regular rhythm Heart Sounds: no murmurs Skin Lesions: lesion noted (various areas from picking, none appear infected, no drainage or red) Rashes: no rashes Neuro General: patient alert, patient awake, patient oriented x3, tone normal and no focal motor deficits Extrem General: pedal edema Psych Appearance: disheveled (unkempt) Mental Status: mental status grossly normal Speech and Movement: speech and movement normal and restless Mood: congruent mood Affect: normal affect Attitude: cooperative Thought Process: normal Thought Content: normal DS: Data Vitals/I&O Vitals and I&O: Vital Signs Temperature 37.0 C 05/02/23 07:18 Temperature Source Tympanic 05/02/23 07:18 Pulse 86 05/02/23 07:18 Pulse Rhythm Regular 05/02/23 07:45 Pulse 73 05/01/23 16:40 Respiratory Rate 17 05/02/23 07:18 Respiratory Effort Normal, Non-Labored 05/02/23 07:45 Respiratory Depth Normal 05/02/23 07:45 Respiratory Pattern Normal 05/02/23 07:45 Blood Pressure 163/98 H 05/02/23 07:18 Blood Pressure Mean 123 05/01/23 16:32 Blood Pressure Position Supine 05/01/23 11:13 Pulse Oximetry 96 05/02/23 07:18 Oxygen Delivery Method Room Air 05/02/23 07:18 Oxygen Flow Rate 0 05/02/23 07:18 Pain Level 8 05/02/23 08:49 Intake & Output 05/01/23 05/01/23 05/02/23 11:59 23:59 11:59 Intake Total 1200 / 1200 1010 / 1010 Output Total 400 / 400 400 / 400 Balance 800 / 800 610 / 610 Weight 74.5 kg Intake: IV 1200 / 1200 1010 / 1010 Output: Urine 400 / 400 400 / 400 Other: Urine Color Yellow Light Beckie Urine Appearance Clear Clear Urine Odor Normal Normal Stool Characteristics Soft Formed Emesis Description Blood Tinged Voiding Methods Toilet Toilet Data Completed and Pending Labs on day of discharge: Labs from last 24 hours 05/01/23 05/01/23 05/01/23 16:25 11:27 11:27 WBC 32.68 H* RBC 5.08 Hgb 14.3 Hct 42.6 MCV 84 MCH 28.1 MCHC 33.6 RDW 12.1 Plt Count 480 H MPV 9.6 Immature Gran % 0.8 Neutrophils % 88.4 Lymphocytes % 6.1 Monocytes % 4.5 Eosinophils % 0.0 Basophils % 0.2 Nucleated RBC % 0.0 Absolute Neutrophils 28.89 H Absolute Lymphocytes 1.99 Absolute Monocytes 1.47 H Absolute Eosinophils 0.00 Absolute Basophils 0.07 RBC Morphology Normal Sodium 141 Potassium 2.8 L* Chloride 100 Carbon Dioxide 26.6 Anion Gap 14.4 H BUN 4 L Creatinine 0.9 Est GFR (CKD-EPI 2020) 84.97 Glucose 144 H Calcium 9.6 Magnesium 1.9 Total Bilirubin 0.5 AST 22 ALT 30 Alkaline Phosphatase 49 Total Protein 9.1 H Albumin 4.2 Lipase 20 Urine Color Yellow Urine Clarity Clear Urine pH 7.0 Ur Specific Pony 1.020 Urine Protein 30 H Urine Ketones 80 H Urine Blood Negative Urine Nitrite Negative Urine Bilirubin Negative Urine Urobilinogen 0.2 Ur Leukocyte Esterase Negative Urine RBC 0-2 Urine WBC 5-10 Ur Epithelial Cells Many Urine Crystals Moderate Amorphous Urine Bacteria Negative Urine Mucus Moderate Urine Other Rare Transitional Ur Culture Indicated? No/Sq. Contamination Urine Glucose Negative PFSH All Active Problems (Updated 05/01/23 @ 20:56 by GLENNA Mello) Hypokalemia (Acute) Tobacco abuse (Acute) 1/2 PPD History of heroin abuse (Acute) Nausea & vomiting (Acute) (Acute) Left carpal tunnel syndrome (Acute) Right carpal tunnel syndrome (Acute) Medical History Abdominal complaints Anxiety and depression Bilateral carpal tunnel syndrome Contraceptive surveillance OCPs for amenorrhea February 2022 Drug induced constipation Elevated liver function tests GERD (gastroesophageal reflux disease) Hepatitis C antibody test positive 2015. Undetectable viral load. History of heroin abuse History of complication 2006 IOL 34w EGA @ [facility] for IUGR. 2015 . IOL @33w for severe preeclampsia. [facility] History of pyelonephritis (~2014) during 2nd . chronic suppression during . Hoarseness Hypothyroidism Insomnia Nightmares OCD (obsessive compulsive disorder) Personal history of cervical dysplasia (09/17/15) HAYLEY II 2012, LEEP 2013. WNL 2021 Stress incontinence Substance abuse in remission Hx inpt tx in 2014, in [facility] program, sees therapist Thyromegaly Tobacco abuse 1/2 PPD Surgical History Cervical Conization/LEEP LEEP. Repair of umbilical hernia in childhood Social History Smoking/Tobacco Use Status: Current every day Tobacco Type: cigarettes Smoking risk assessment performed?: Yes Alcohol Intake: former Drug use: Occasionally Substance use type: marijuana Details: on methadone - pt stated last time she had alcohol was this weekend, denies any blackouts Housing: house Do you feel safe at home: Yes Do you feel safe in your relationship?: Yes Female Reproductive History Menstrual Age of Menarche: 15 Duration of menses: 3-5 days control method: none History History 3 Para 2 Hx # Term Pregnancies Multiple births Hx # Pregnancies Ectopic pregnancies AB induced Hx Number of Living Children AB spontaneous Past Pregnancies Del. Date GA/Weeks # Preg Succ Route Wgt Sex Labor Lgth Anesth esia Location Prov Complic 09/29/06 34 No Yes vaginal 2296.311 g Female 04/05/17 34 No Yes vaginal 2182.913 g Female Delivery Date: 09/29/06 Last Updated by: Sofie Eagle- baby in [facility] for 3 weeks d/t prematurity Delivery Date: 04/05/17 Last Updated by: Sofie Rojas- delivered at [facility], kept for prematurity for three weeks. Time Spent with Patient Time Spent with Patient: <45 minutes Time was spent: preparing to see the patient(eg.review tests), ordering medications,tests, procedures and counseling the patient
--- NOTE | 2023-05-02 11:16 | PDOC.CMDIS ---
Date of service: 05/02/23 Time of Service: 11:16 LACE Index Scoring Tool Questions: Length of Stay (in days): 1 Was the patient admitted via the E.D.?: Yes E.D. Visits: 3 Answers: Total Score: 7 Risk of Readmission: Low Risk Care Management Discharge Plan Reason for Hospitalization: Nausea and vomiting Discharge Plan: Patient is discharged home with no services. She will follow up with her PCP, [facility], [facility], and plan of care as instructed. She is transported home by family via private vehicle Patient/Family Education Needs: Review of discharge instructions including medications, limitations and follow up plan of care; discuss Ask Me Three.
== END 2023-05-02 12:28 | disposition home or self-care (01) ==
LOC: ER 12:40 → MS 18:48
PROVIDERS: Admitting Provider Family Medicine; Emergency Provider Physician Assistant; PCP Nurse Practitioner Family; Visit Provider Family Medicine
DX: O99.611 Diseases of the digestive system complicating pregnancy, first trimester (principal); R11.2 Nausea with vomiting, unspecified; O09.521 Supervision of elderly multigravida, first trimester; O99.321 Drug use complicating pregnancy, first trimester; F11.20 Opioid dependence, uncomplicated; Z3A.01 Less than 8 weeks gestation of pregnancy; E87.6 Hypokalemia; O99.331 Smoking (tobacco) complicating pregnancy, first trimester; K21.9 Gastro-esophageal reflux disease without esophagitis; F41.8 Other specified anxiety disorders; O99.341 Other mental disorders complicating pregnancy, first trimester; O99.281 Endocrine, nutritional and metabolic diseases complicating pregnancy, first trimester; E03.9 Hypothyroidism, unspecified
CPT/HCPCS: 80053; 83690; 93005; 94640; 96365; 96366; 96368; 96375; 99285; 76700; 81003; 81015; 83735; 85025; 93010; 94664; 99238; G0378; J0780; J1200; J2270; J3475; J3480

== ENCOUNTER 2023-05-06 07:47 | Emergency (ER) | payer MEDICAID, SELFPAY ==
[2023-05-06 07:53] VITALS: BP 170/90; PULSE 97; RESP 20; TEMP 37.2; O2SAT 97
[2023-05-06 07:59] VITALS: BP 166/85; PULSE 66; PULSE 81; RESP 20; O2SAT 95
[2023-05-06 08:00] VITALS: PULSE 73; RESP 13; O2SAT 98
--- NOTE | 2023-05-06 08:00 | RT.EKG_ITS ---
APPROVED REPORT Exam: Resting ECG Reason for Exam: methadone pt, evaluate QT Patient Location: E HR:78 bpm ECG Measurements Heart Rate 78 AXIS IA 132 P 33 QRSd 74 QRS 50 QT 437 T 27 QTc 497 Conclusion Sinus rhythm...normal P axis, V-rate 60- 99 Consider left ventricular hypertrophy...(S V1+R V5/V6) >3.25mV Nonspecific T abnrm, anterolateral leads...T <-0.10mV, I aVL V2-V6 sinus rhtyhm, normal axis, normal intervals, non ischemic
[2023-05-06 08:02] VITALS: BP 169/92; PULSE 71; PULSE 79; RESP 12; O2SAT 98
--- NOTE | 2023-05-06 08:14 | DI.US_ITS ---
Exam(s) US OB 1ST TRIMESTER EXAM: US OB 1ST TRIMESTER CLINICAL HISTORY: +PG, vomiting, pain, concern for ectopic. TECHNIQUE: First trimester obstetrical ultrasound was performed. COMPARISON: US US ABDOMEN from 05/01/2023 FINDINGS: There appears to be an intrauterine gestational sac at the level the fundus and this appears to conta in a yolk sac. No obvious pole evident at this time. Therefore no CRL measurement. Gestation al sac measurement 6.9 mm. There is no evidence of subchorionic hemorrhage. Maternal ovaries: There is a cyst in left ovary which measures 10 x 8 mm. No extraovarian adnexal ma sses. No free fluid. IMPRESSION:: There is an intrauterine gestational sac which contains a yolk sac. pole not visualized at thi s time (too early). Small cyst in the left ovary. No other adnexal findings and no free fluid in the cul-de-sac. DATA REPOSITORY:
[2023-05-06] MEDS: Promethazine 25 MG SUPP PR (08:18)
[2023-05-06 08:20] VITALS: PULSE 74
--- NOTE | 2023-05-06 08:25 | ED.GENADUL_ITS ---
Discharge Plan Disposition Patient Disposition: Home Condition: Improving Discharge Details Clinical Impression: Nausea & vomiting, Primary Care Provider: MINNIE NICHOLS ED Provider: Suyapa Walsh Home Meds and New Rx's Prescriptions: New promethazine 25 mg suppository 25 mg SC Q6H PRN (Reason: nausea and vomiting) Qty: 12 0RF Continued omeprazole 20 mg capsule,delayed release(DR/EC) 20 mg PO DAILY hydroxyzine pamoate 25 mg capsule 25 mg PO BID PRN Patient Comments: 09/29/22- pt reports taking one 25 mg cap in am and three 25 mg cap (75 mg total) at night. fluoxetine 40 mg capsule 40 mg PO DAILY budesonide-formoterol [Symbicort] 80-4.5 mcg/actuation HFA aerosol inhaler 1 puff inhalation BID prazosin [Minipress] 1 mg capsule 1 mg PO QHS Patient Comments: not taking levothyroxine 50 mcg tablet 75 mcg PO DAILY clonidine HCl 0.1 mg tablet 0.1 mg PO DAILY Hold Instructions: Until discussed with your TEA TASTER Patient Comments: TAKE ONE TABLET BY MOUTH AT BEDTIME methadone 10 mg/mL concentrate 40 mg PO DAILY ondansetron 4 mg tablet,disintegrating 4 mg PO Q6H PRNQty: 10 0RF promethazine 25 mg tablet 25 mg PO QID PRNQty: 10 0RF Discharge Instructions Instructions: (ED), Acute Nausea and Vomiting (ED) Additional Instructions: Imaging shows a small yolk sac as we discussed, it is too early yet to allow for estimated age. Please continue with hydration. You may advance her diet as tolerated. Please speak with Chris regarding your methadone dosing as I believe some of this may be associated with withdrawal symptoms. Please keep your appointment Monday with your TEA TASTER. Please try vitam in B and angelica to help with nausea. You may use the rectal Phenergan as prescribed if you have any recurrent symptoms. If you develop fever/chills, inability stay hydrated or other new/worsening symptom please seek care urgently once again. Referrals: MINNIE NICHOLS, [employer] [Primary Care Provider] - Dawn Swenson MD [ [facility] STAFF PHYSICIAN] - Discharge Data Discharge Date/Time-TO BE ENTERED AT DEPARTURE: 05/06/23 11:28 Medical Decision Making Patient is a pleasant 37 year old female, brought in by male friend, with c/c of abdominal pain, nausea, vomiting. Has had this recently, I had seen the patient 5 days ago, she was admitted at that time for the same. She is early in PG, unknown LMP and she has not yet had her first obstetrical visit. She did have a episodes of hyperemesis during her last but when she was here last Monday, TEA TASTER was not thinking that this was associated with that as much as issues with methadone dosing. She did respond significantly better to morphine and receiving her methadone than any of the antiemetics we gave her. States that symptoms began once again this morning a few hours prior to arrival. She states that typically she does her self at home, 40 mg liquid, around 10 AM. She denies any abdominal cramping, bleeding, vaginal discharge. She does state that the pain is lower in the abdomen than when she was here recently. Denies any fevers or chills. No chest pain or shortness of breath. States that she had 1 bowel movement yesterday that was harder than typical. Often uses stool softeners. No change in urinary habits. On exam, patient appears unwell, diaphoretic and vomiting. She has diffuse pain about her abdomen, no focal area of pain. Pain seems to be increased compared to when I saw her last week. She is very early to have sxs of ectopic but as this is potential, will obtain US. this iwll also help with dating. Without more focal symptoms and with this being just in the AM, prior to her Methadone dosing, I do not seen indication of acute appendicitis, diverticulitis. She has negative Muphy's and this is not food related, do not see indication of acute cholecysttitis. Will hydrate, give antiemetic and help with discomfort. Last time, her daily dosing of Methadone worked the best at improving not only her pain, but her diaphoresis and vomiting as well. She had previously noted she had been tapering. No dosing changes since she was here last. Difficult obtaining IV, will give rectal phenergan. She had this last time and this helped with her nausea more than the compazine- seemed to have longer effected. Called [facility] and asked for call back. Will discuss dosing and possible need for change given the recurrent pain and vomiting. US IV placed by myself in LUE. Will give morphine, fluids. FINDINGS: Gestation: Fluid collection in the endometrium. There is a yolk sac consistent with intrauterine . Gestational sac measures 6.9 mm which is out of range. Embryonic/ heart rate: Very early . No cardiac activity BIOMETRY: Gestational age (AUA): Very early . No pole identified MATERNAL: Uterus: Uterus 4 x 4.6 cm. Fluid collection in the endometrium. There is a yolk sac consistent with intrauterine . Gestational sac measures 6.9 mm which is out of range. Cervix: Unremarkable. Right ovary/adnexa: Right ovary 2 x 1.6 x 1.1 cm Left ovary/adnexa: Left ovary 2.5 x 2.2 x 1.8 cm Intraperitoneal space: No intraperitoneal free fluid. IMPRESSION: Fluid collection in the endometrium. There is a yolk sac consistent with intrauterine . Gestational sac measures 6.9 mm which is out of range. Consulted with Dr. Olguin, we discussed the US, in particular, the fluid collected in the endometrium. She advised that we should obtain quant as this may not be viable given size. Fluid is not emergent, could be associated with . Jakci does have appointment on Monday already scheduled. Quant is increasing to >3,000 compared to 698 one week ago. Patient sleeping, pain improved. Plan to d/c home. Called [facility] again, they are now closed. Will send home with rectal phenergan. Encouraged she discuss her recurrent issue with [facility] and her TEA TASTER. She is able to hydrate orally at this time, feels ready for d/c. She and her partner will get hre B vitamin, angelica OTC. I also encouraged that she begin with Folate. Return precautions discussed, she will keep her upcoming appointments. All of her questions and concerns were addressed, she is in agreement with this plan. HPI General Date/Time Provider Initiated Documentation: 05/06/23 07:56 . Limitations to Documentation: no limitations . Information obtained by: patient, family, RN notes reviewed and old records reviewed . History of Present Illness 37 year old F presents to the emergency department with the chief complaint of nausea, vomiting, abdominal pain, described as severe, Quality is described as sharp and constant, and is localized to the abdomen. Patient reports radiation to (pain is diffuse). Patient started experiencing this hour(s) and it has been constant. No relieving factors improve symptom(s), No exacerbating factors reported . Patient notes loss of appetite, malaise and nausea/vomiting; denies chest pain, cough, fever/chills, headaches, rash and shortness of breath. Patient did receive the following treatments prior to arrival, none Related Data Home Medications Medication Instructions Recorded Confirmed omeprazole 20 mg capsule,delayed 20 mg PO DAILY 07/01/21 05/06/23 release budesonide-formoterol HFA 80 1 puff inhalation BID 08/27/21 05/06/23 mcg-4.5 mcg/actuation aerosol inhaler (Symbicort) clonidine HCl 0.1 mg tablet 0.1 mg PO DAILY 09/29/22 05/01/23 fluoxetine 40 mg capsule 40 mg PO DAILY 09/29/22 05/06/23 hydroxyzine pamoate 25 mg capsule 25 mg PO BID PRN 09/29/22 05/06/23 levothyroxine 50 mcg tablet 75 mcg PO DAILY 12/13/22 05/06/23 prazosin 1 mg capsule (Minipress) 1 mg PO QHS 12/13/22 05/06/23 methadone 10 mg/mL oral concentrate 40 mg PO DAILY 04/13/23 05/06/23 ondansetron 4 mg disintegrating 4 mg PO Q6H PRN #10 tabs 05/02/23 05/06/23 tablet promethazine 25 mg tablet 25 mg PO QID PRN #10 tabs 05/02/23 05/06/23 promethazine 25 mg rectal 25 mg SC Q6H PRN nausea and 05/06/23 suppository vomiting #12 ea Previous Rx's Medication Instructions Recorded ondansetron 4 mg disintegrating 4 mg PO Q6H PRN #10 tabs 05/02/23 tablet promethazine 25 mg tablet 25 mg PO QID PRN #10 tabs 05/02/23 promethazine 25 mg rectal 25 mg SC Q6H PRN nausea and 05/06/23 suppository vomiting #12 ea Allergies Allergy/AdvReac Type Severity Reaction Status Date / Time No Known Drug Allergies Allergy none Verified 04/30/23 15:12 General Stated Complaint: Abd Prob ALONA: 3 Review of Systems Constitutional Constitutional: Reports as per HPI, Denies chills, Denies fever(s) and Denies headache(s) ENT Ears, Nose, Mouth, and Throat: Denies headache(s) Cardiovascular Cardiovascular: Reports as per HPI, Denies chest pain and Denies dyspnea Respiratory Respiratory: Reports as per HPI, Denies cough and Denies dyspnea Gastrointestinal Gastrointestinal: Reports as per HPI Genitourinary Genitourinary: Denies abnormal vaginal bleeding, Denies hematuria, Denies difficulty voiding, Denies pelvic pain, Denies flank pain, Denies vaginal discharge and Denies vaginal odor Integumentary/Breasts Skin/Breast: Reports as per HPI and Denies rash Neurologic Neurologic: Reports as per HPI and Denies headache(s) PFSH All Active Problems (Updated 05/06/23 @ 10:58 by GLENNA Mello) Hypokalemia (Acute) Tobacco abuse (Acute) 1/2 PPD History of heroin abuse (Acute) Nausea & vomiting (Acute) (Acute) Left carpal tunnel syndrome (Acute) Right carpal tunnel syndrome (Acute) Medical History Abdominal complaints Anxiety and depression Bilateral carpal tunnel syndrome Contraceptive surveillance OCPs for amenorrhea February 2022 Drug induced constipation Elevated liver function tests GERD (gastroesophageal reflux disease) Hepatitis C antibody test positive 2015. Undetectable viral load. History of heroin abuse History of complication 2006 IOL [address]w [address]GA @ [facility] for IUGR. 2015 . IOL @33w for severe preeclampsia. [facility] History of pyelonephritis (~2014) during 2nd . chronic suppression during . Hoarseness Hypothyroidism Insomnia Nightmares OCD (obsessive compulsive disorder) Personal history of cervical dysplasia (09/17/15) HAYLEY II 2012, LEEP 2013. WNL 2021 Stress incontinence Substance abuse in remission Hx inpt tx in 2014, in [facility] program, sees therapist Thyromegaly Tobacco abuse 1/2 PPD Surgical History Cervical Conization/LEEP LEEP. Repair of umbilical hernia in childhood Social History Smoking/Tobacco Use Status: Current every day Tobacco Type: cigarettes Smoking risk assessment performed?: Yes Alcohol Intake: former Drug use: Occasionally Substance use type: marijuana Details: on methadone - pt stated last time she had alcohol was this weekend, denies any blackouts Housing: house Do you feel safe at home: Yes Do you feel safe in your relationship?: Yes Female Reproductive History Menstrual Age of Menarche: 15 Duration of menses: 3-5 days control method: none History History 3 Para 2 Hx # Term Pregnancies Multiple births Hx # Pregnancies Ectopic pregnancies AB induced Hx Number of Living Children AB spontaneous Past Pregnancies Del. Date GA/Weeks # Preg Succ Route Wgt Sex Labor Lgth Anesth esia Location [facility] 09/29/06 34 No Yes vaginal 2296.311 g Female 04/05/17 34 No Yes vaginal 2182.913 g Female Delivery Date: 09/29/06 Last Updated by: Sofie Eagle- baby in [facility] for 3 weeks d/t prematurity Delivery Date: 04/05/17 Last Updated by: Sofie Rojas- delivered at [facility], kept for prematurity for three weeks. Exam Const General: cooperative, well developed, anxious, diaphoretic and ill appearing (appears very anxious, diaphoretic, has some shaking and moaning) acutely Nutritional Appearance: well nourished and overweight Orientation: alert and awake [facility] Head: normal to inspection Mouth: mucous membranes dry (appears dry) Resp Effort & Inspection: normal respiratory effort, able to speak in complete sentences and no respiratory distress Auscultation: clear to auscultation bilaterally, no rales, no rhonchi and no wheezes Cardio Rate: regular rate Rhythm: regular rhythm Heart Sounds: S1 normal and S2 normal GI Inspection: normal to inspection Palpation: soft, no hepatosplenomegaly, not firm, no guarding, no masses, not rigid, tender (diffusely tender) and No ascites Percussion: normal to percussion Auscultation: hypoactive bowel sounds Back/Spine/Pelvis Back: no CVA tenderness Skin General skin exam: no rashes or lesions noted Trauma: no lacerations or abrasions Neuro General: patient alert and patient awake Cognition: normal cognition Speech: speech normal Gait: normal gait Course Vital Signs Vital signs: Vital Signs Temperature 37.2 C 05/06/23 07:53 Pulse 97 H 05/06/23 07:53 Respiratory Rate 20 05/06/23 07:53 Blood Pressure 170/90 H 05/06/23 07:53 Pulse Oximetry 97 05/06/23 07:53 Temperature 37.2 C 05/06/23 07:53 Pulse 97 H 05/06/23 07:53 Respiratory Rate 20 05/06/23 07:53 Respiratory Effort Normal, Non-Labored 05/06/23 08:02 Blood Pressure 170/90 H 05/06/23 07:53 Blood Pressure Position Sitting 05/06/23 07:53 Pulse Oximetry 97 05/06/23 07:53 Oxygen Delivery Method Room Air 05/06/23 07:53 Oxygen Flow Rate 0 05/06/23 07:53 Pain Level 8 05/06/23 08:04
[2023-05-06 08:37] LABS: Abs Immature Grans 0.18 10^3/uL (0.0-0.06); Absolute Lymphocyte Count 2.25 10^3/uL (1.2-3.4); Absolute Monocyte Count 1.09 10^3/uL (0.1-0.8); Basophils % 0.4; HCT 42.5 % (36.0-46.0); Immature Grans % 0.9; Lymphocytes % 10.7; MCH 28.4 pg (27.0-33.0); MCHC 32.9 % (32.0-36.0); MCV 86 fL (80-95); MPV 9.5 fL (8.0-11.0); Monocytes % 5.2; Neutrophils % 81.8; Platelet Count 450 10^3/uL (130-400); RBC 4.93 10^6/uL (3.93-5.22); RDW 12.9 % (11.7-14.6); RDW-SD 39.8 fL
[2023-05-06 08:40] LABS: Absolute Basophil Count 0.08 10^3/uL (0.0-0.2); Absolute Eosinophil Count 0.21 10^3/uL (0.0-0.7); Absolute Neutrophil Count 17.18 10^3/uL (1.2-6.7)
[2023-05-06 08:53] LABS: ALT 22 U/L (14-59); AST 14 U/L (15-37); Albumin 3.8 g/dL (3.4-5.0); Alkaline Phosphatase 43 U/L (46-116); Anion Gap 11.8 mmol/L (3-11); BUN 7 mg/dL (7-18); Bilirubin, Total 0.3 mg/dL (0.2-1.0); CO2 26.2 mmol/L (21.0-32.0); CREATININE 0.8 mg/dL (0.55-1.02); Calcium 9.9 mg/dL (8.5-10.1); Chloride 102 mmol/L (98-107); Estimated GFR 97.87 (mL/min/1.73m2); Glucose 165 mg/dL (74-106); Magnesium 1.9 mg/dL (1.8-2.4); Potassium 4.1 mmol/L (3.5-5.1); Sodium 140 mmol/L (136-145); Total Protein 8.5 g/dL (6.4-8.2)
[2023-05-06] MEDS: Lactated Ringers 1,000 ML 1000 ML IV (08:58)
[2023-05-06] MEDS: MORPHine 4 MG/ML SYR IVP (08:58)
[2023-05-06] MEDS: Prochlorperazine 10 MG/2 ML VIAL IVP (09:37)
[2023-05-06] MEDS: diphenhydrAMINE 50 MG/ML VIAL IVP (09:37)
--- NOTE | 2023-05-06 09:47 | DI.VRAD_ITS ---
PROCEDURE INFORMATION: Exam: US First Trimester, Transabdominal and US , Transvaginal Exam date and time: 05/06/2023 9:08 AM Age: 37 years old Clinical indication: Other: Lower abd pain; Gestational age or lmp: Unknown; ; Prior surgery; Surgery date: 6+ months; Surgery type: C section 6+ years ago. Maternal gestational age 9 weeks 2 days TECHNIQUE: Imaging protocol: Real-time transabdominal obstetrical ultrasound of the maternal pelvis and a first trimester , less than 14 weeks 0 days, with image documentation. Transvaginal imaging was used for better evaluation of the fetus, adnexa, and/or cervix. COMPARISON: CT ABDOMEN PELVIS W 05/19/2022 2:10 PM FINDINGS: Gestation: Fluid collection in the endometrium. There is a yolk sac consistent with intrauterine . Gestational sac measures 6.9 mm which is out of range. Embryonic/ heart rate: Very early . No cardiac activity BIOMETRY: Gestational age (AUA): Very early . No pole identified MATERNAL: Uterus: Uterus 4 x 4.6 cm. Fluid collection in the endometrium. There is a yolk sac consistent with intrauterine . Gestational sac measures 6.9 mm which is out of range. Cervix: Unremarkable. Right ovary/adnexa: Right ovary 2 x 1.6 x 1.1 cm Left ovary/adnexa: Left ovary 2.5 x 2.2 x 1.8 cm Intraperitoneal space: No intraperitoneal free fluid. IMPRESSION: Fluid collection in the endometrium. There is a yolk sac consistent with intrauterine . Gestational sac measures 6.9 mm which is out of range. Dictated and Authenticated by: Arleen Quiles MD. Ordering:FRANK Dale MD
[2023-05-06] MEDS: Methadone Liquid 10 MG/ML 40 MG PO (09:57)
[2023-05-06 10:49] LABS: HCG Quant, Pregnancy 3080 mIU/mL (1-3)
[2023-05-06 11:26] VITALS: BP 148/97; PULSE 92; RESP 19; TEMP 36.8; O2SAT 95
== END 2023-05-06 11:28 | disposition home or self-care (01) ==
PROVIDERS: Emergency Provider Physician Assistant; PCP Nurse Practitioner Family
DX: O21.8 Other vomiting complicating pregnancy (principal); O26.891 Other specified pregnancy related conditions, first trimester; R10.30 Lower abdominal pain, unspecified; O99.411 Diseases of the circulatory system complicating pregnancy, first trimester; R94.31 Abnormal electrocardiogram [ECG] [EKG]; O34.81 Maternal care for other abnormalities of pelvic organs, first trimester; N83.202 Unspecified ovarian cyst, left side; Z3A.01 Less than 8 weeks gestation of pregnancy
CPT/HCPCS: 36415; 80053; 93005; 96361; 96374; 96375; 99284; 76801; 83735; 84702; 85025; 93010; J0780; J1200; J2270

== ENCOUNTER 2023-06-19 09:58 | Emergency (ER) | payer MEDICAID, SELFPAY ==
[2023-06-19 10:03] VITALS: BP 170/82; PULSE 72; RESP 22; TEMP 36.5; O2SAT 98
--- NOTE | 2023-06-19 10:15 | DI.US_ITS ---
Exam(s) US OB 1ST TRIMESTER EXAM: US OB 1ST TRIMESTER CLINICAL HISTORY: abdominal pain. TECHNIQUE: First trimester obstetrical ultrasound was performed. COMPARISON: US POCUS EXAM from 06/05/2023 FINDINGS: There is an intrauterine gestational sac which contains aviable pole which exhibits heart rate of 148 bpm. motion was also observed [place]-rump length measurement is 40 mm, corresponding to 10 weeks and 6 days gestational age. There is no evidence of subchorionic hemorrhage. Maternal ovaries: Both not seen There is no fluid in the cul-de-sac and adnexal regions. IMPRESSION:: Single viable intrauterine gestation which is approximately 10 weeks and 6 days gestati onal age by crown rump length measurement, implying ALMA of 01/09/2024, 2020. There is no evidence of subchorionic hemorrhage. Maternal ovaries were not visualized There is no free fluid evident in the cul-de-sac. DATA REPOSITORY:
--- NOTE | 2023-06-19 10:31 | W.ED.GENAD ---
Discharge Plan Disposition Patient Disposition: Home Condition: Good Discharge Details Clinical Impression: Vomiting affecting , Urinary tract infection Primary Care Provider: MINNIE NICHOLS ED Provider: Elisa Albright Home Meds and New Rx's Prescriptions: New lorazepam [Ativan] 1 mg tablet 1 mg PO TID PRNQty: 10 0RF cephalexin 500 mg tablet 500 mg PO QID Qty: 28 0RF Discontinued ondansetron 4 mg tablet,disintegrating 4 mg PO Q6H PRNQty: 10 0RF promethazine 25 mg tablet 25 mg PO QID PRNQty: 10 0RF promethazine 25 mg suppository 25 mg MT Q6H PRN (Reason: nausea and vomiting) Qty: 12 0RF No Action omeprazole 20 mg capsule,delayed release(DR/EC) 20 mg PO DAILY hydroxyzine pamoate 25 mg capsule 25 mg PO BID PRN Patient Comments: 09/29/22- pt reports taking one 25 mg cap in am and three 25 mg cap (75 mg total) at night. fluoxetine 40 mg capsule 40 mg PO DAILY Gummies 400 mcg-35 mg- 25 mg-5 mg tablet,chewable 2 tab PO DAILY Plus Vitamin-Mineral 27 mg iron- 1 mg tablet 1 tab PO DAILY Qty: 90 4RF budesonide-formoterol [Symbicort] 80-4.5 mcg/actuation HFA aerosol inhaler 1 puff inhalation BID prazosin [Minipress] 1 mg capsule 1 mg PO QHS Hold Instructions: Changed by Provider Patient Comments: not taking levothyroxine 50 mcg tablet 75 mcg PO DAILY clonidine HCl 0.1 mg tablet 0.1 mg PO DAILY Hold Instructions: Changed by Provider Patient Comments: No longer taking 06/19/23 CT methadone 10 mg/mL concentrate 45 mg PO DAILY Discharge Instructions Instructions: Hyperemesis Gravidarum (ED), Urinary Tract Infection in Women (ED) Additional Instructions: Stop taking zofran and compazine. Take ativan up to every 8 hours as needed for nausea and vomiting. You have a urinary tract infection- take the antibiotic prescribed until it is all gone. Call your taxi driver supervisor today to schedule an appointment within the next 2 days to follow up on your visit here and to discuss how to manage your nausea and vomiting going home. Return to the emergency department for new or worsening symptoms, including fever, abdominal pain, flank pain, inability to keep down fluids, or if you have any other concerns. Referrals: MINNIE NICHOLS, MECHANICAL INSPECTOR [Primary Care Provider] - Medical Decision Making 37yo F currently approximately 2 months by early ultrasound presenting for nausea and vomiting with diffuse crampy abdominal pain, unable to keep anything down today despite home zofran and compazine. Hypertensive on arrival, vital signs otherwise reassuring, no abdominal tenderness on exam. Patient reports IV zofran usually works better for her; will try this here as well as benadyrl/b-vitamins (no doxylamine available) and give 1L IVFB. With reassuring abdominal exam, would not pursue imaging/CT scan, low suspicion for acute intraabdominal/intrapelvic process i.e. obstruction, appendicitis, ovarian torsion, etc. Labs reviewed as below, CBC with leukocytsois to 14, CMP reassuring with mild hypomagnesium, otherwise no actionable abnormalities. UA suggestive of possible infection (+WBC, + leuk esterace); patient without urinary symptoms however as patient as will treat for potential asymptomatic bacturia with course of keflex. Exam not concerning for pyelonephritis. ultrasound as below, reassuring. EKG sinus rhythm with somewhat prolonged QTc; patient on multiple QT prolonging meds at home including methadone. On reassessment patient remains unable to tolerate PO. Given and QT concerns, somewhat limited options for anit-emetics. Given 1mg IV ativan; on reassessment able to tolerate PO fluids. Abdominal exam remains benign. Discharged home with short course of ativan to followup with OB. Advised to discuss her magnesium level as well as her blood pressure at that time (hx of preeclampsia). Discharge instructions including return precautions were reviewed with patient who verbalized understanding. All questions were answered. Imaging Data Radiologic Study: Imaging: Ultrasound Radiologist's impression: IMPRESSION::? Single viable intrauterine gestation which is approximately 10 weeks and 6 days gestational age by crown rump length measurement, implying ALMA of 01/09/2024, 2020. There is no evidence of subchorionic hemorrhage. Maternal ovaries were not visualized There is no free fluid evident in the cul-de-sac. Lab Data Lab results reviewed: Yes I reviewed the patient's lab results. Labs: 06/19/23 11:02 Urine - Reflex from Ua Urine Culture - Pending Laboratory Tests Range/Units 06/19/23 06/19/23 06/19/23 10:47 10:47 11:02 WBC (4.4-10.8) 10^3/uL 14.30 H RBC (3.93-5.22) 10^6/uL 4.92 Hgb (11.2-15.7) g/dL 13.9 Hct (36.0-46.0) % 41.6 MCV (80-95) fL 85 MCH (27.0-33.0) pg 28.3 MCHC (32.0-36.0) % 33.4 RDW (11.7-14.6) % 13.6 Plt Count (130-400) 10^3/uL 385 MPV (8.0-11.0) fL 9.1 Immature Gran % 0.6 Neutrophils % 84.0 Lymphocytes % 11.5 Monocytes % 2.7 Eosinophils % 0.8 Basophils % 0.4 Nucleated RBC % (0.0-0.3) % 0.0 Absolute Neutrophils (1.2-6.7) 10^3/uL 12.01 H Absolute Lymphocytes (1.2-3.4) 10^3/uL 1.64 Absolute Monocytes (0.1-0.8) 10^3/uL 0.39 Absolute Eosinophils (0.0-0.7) 10^3/uL 0.11 Absolute Basophils (0.0-0.2) 10^3/uL 0.06 Sodium (136-145) mmol/L 135 L Potassium (3.5-5.1) mmol/L 4.2 Chloride (98-107) mmol/L 99 Carbon Dioxide (21.0-32.0) mmol/L 23.4 Anion Gap (3-11) mmol/L 12.6 H BUN (7-18) mg/dL 9 Creatinine (0.55-1.02) mg/dL 0.7 Est GFR (CKD-EPI 2020) (mL/min/1.73m2) 114.88 Glucose (74-106) mg/dL 147 H Calcium (8.5-10.1) mg/dL 9.6 Magnesium (1.8-2.4) mg/dL 1.6 L Total Bilirubin (0.2-1.0) mg/dL 0.4 AST (15-37) U/L 29 ALT (14-59) U/L 25 Alkaline Phosphatase (46-116) U/L 44 L Total Protein (6.4-8.2) g/dL 8.9 H Albumin (3.4-5.0) g/dL 3.8 Urine Color (Yellow) Yellow Urine Clarity (Clear) Cloudy Urine pH (5-8) 8.0 Ur Specific [place] (1.005-1.025) 1.020 Urine Protein (Negative) mg/dL 30 H Urine Ketones (Negative) mg/dL >=160 H Urine Blood (Negative) Negative Urine Nitrite (Negative) Negative Urine Bilirubin (Negative) Negative Urine Urobilinogen (Up to 0.2) mg/dL 1.0 H Ur Leukocyte Esterase (Negative) Trace H Urine RBC (0-2) HPF 0-2 Urine WBC (0-5) HPF 10-20 H Ur Epithelial Cells (Negative) HPF Few Urine Crystals (Negative) HPF Moderate Amorphous Urine Bacteria (Negative) HPF Few Urine Mucus (Negative) Negative Ur Culture Indicated? Yes Urine Glucose (Negative) mg/dL Negative HPI General Date/Time Provider Initiated Documentation: 06/19/23 10:04. Limitations to Documentation: no limitations. Information obtained by: patient. HPI Narrative: 37yo F currently approximately 2 months by early ultrasound presenting for nausea and vomiting. Has been vomiting on and off most of this , acutely worse today. Unable to keep anything down since 0700 this morning despite home zofran and compazine. Nonbloody nonbilious. No vaginal bleeding or leaking. Diffuse crampy abdominal pain. No diarrhea. She is otherwise in her usual state of health with no fevers, chills, rash, chest pain, shortness of breath, dysuria, hematuria, or other concerns. Related Data Home Medications Medication Instructions Recorded Confirmed omeprazole 20 mg capsule,delayed 20 mg PO DAILY 07/01/21 06/19/23 release budesonide-formoterol HFA 80 1 puff inhalation BID 08/27/21 06/19/23 mcg-4.5 mcg/actuation aerosol inhaler (Symbicort) clonidine HCl 0.1 mg tablet 0.1 mg PO DAILY 09/29/22 06/05/23 fluoxetine 40 mg capsule 40 mg PO DAILY 09/29/22 06/19/23 hydroxyzine pamoate 25 mg capsule 25 mg PO BID PRN 09/29/22 06/19/23 levothyroxine 50 mcg tablet 75 mcg PO DAILY 12/13/22 06/19/23 prazosin 1 mg capsule (Minipress) 1 mg PO QHS 12/13/22 06/19/23 PNV 153-FA 400 mcg-om3 35 mg-dha 2 tab PO DAILY 06/05/23 06/19/23 25 mg-epa 5 mg-fish oil chew tablet ( Gummies) methadone 10 mg/mL oral concentrate 45 mg PO DAILY 06/05/23 06/19/23 vitamin no.180-ferrous 1 tab PO DAILY #90 tabs 06/05/23 06/19/23 fumarate 27 mg-folic acid 1 mg tablet ( Plus Vitamin-Mineral) cephalexin 500 mg tablet 500 mg PO QID #28 tabs 06/19/23 lorazepam 1 mg tablet (Ativan) 1 mg PO TID PRN #10 tabs 06/19/23 Previous Rx's Medication Instructions Recorded vitamin no.180-ferrous 1 tab PO DAILY #90 tabs 06/05/23 fumarate 27 mg-folic acid 1 mg tablet ( Plus Vitamin-Mineral) cephalexin 500 mg tablet 500 mg PO QID #28 tabs 06/19/23 lorazepam 1 mg tablet (Ativan) 1 mg PO TID PRN #10 tabs 06/19/23 Allergies Allergy/AdvReac Type Severity Reaction Status Date / Time No Known Drug Allergies Allergy none Verified 06/19/23 10:06 General Stated Complaint: Nausea/Vomit/Diar ALONA: 3 Review of Systems Narrative: see HPI PFSH All Active Problems (Updated 06/19/23 @ 15:45 by Elisa Albright MD) Vomiting affecting (Acute) Urinary tract infection (Acute) Need for assessment by dentistry for poor dentition (Acute) History of delivery, currently (Acute) Methadone maintenance therapy patient (Acute) Marijuana abuse, continuous (Acute) History of pre-eclampsia in prior , currently (Acute) Anxiety and depression (Acute) (Acute) Hypokalemia (Acute) Tobacco abuse (Acute) 1/2 PPD History of heroin abuse (Acute) Nausea & vomiting (Acute) Left carpal tunnel syndrome (Acute) Right carpal tunnel syndrome (Acute) Medical History (Updated 06/19/23 @ 15:45 by Elisa Albright MD) Abdominal complaints Abscess of left axilla (04/13/16) Bilateral carpal tunnel syndrome Cervical intraepithelial neoplasia grade 2 (08/22/13) Contraceptive surveillance OCPs for amenorrhea February 2022 Drug induced constipation Elevated liver function tests GERD (gastroesophageal reflux disease) Hepatitis C antibody test positive 2015. Undetectable viral load. History of cervical dysplasia (09/17/15) History of complication 2006 IOL 34w EGA @ [facility] [place]. 2015 . IOL @33w for severe preeclampsia. [facility] [place] History of pyelonephritis (~2014) during 2nd . chronic suppression during . Hoarseness Hypothyroidism Insomnia Nightmares OCD (obsessive compulsive disorder) Personal history of cervical dysplasia (09/17/15) HAYLEY II 2012, LEEP 2013. WNL 2021 -induced hypertension in third trimester (03/11/16) Pyelonephritis affecting (10/15/15) Stress incontinence Substance abuse in remission Hx inpt tx in 2014, in [facility] program, sees therapist Thyromegaly Surgical History Cervical Conization/LEEP LEEP. Repair of umbilical hernia in childhood Social History Smoking/Tobacco Use Status: Current every day Tobacco Type: cigarettes Smoking risk assessment performed?: Yes Alcohol Intake: former Drug use: Occasionally Substance use type: marijuana Details: on methadone - pt stated last time she had alcohol was this weekend, denies any blackouts Housing: house Do you feel safe at home: Yes Do you feel safe in your relationship?: Yes Female Reproductive History Menstrual Age of Menarche: 15 Duration of menses: 3-5 days control method: none History History 4 Para 2 Hx # Term Pregnancies 0 Multiple births 0 Hx # Pregnancies 2 Ectopic pregnancies 0 AB induced 1 Hx Number of Living Children 2 AB spontaneous 0 Past Pregnancies Del. Date GA/Weeks # Preg Succ Route Wgt Sex Labor Lgth Anesthesia Location Prov Complic 09/29/06 34 No Yes vaginal 2296.311 g Female [facility] [place] 04/05/17 34 No Yes vaginal 2182.913 g Female [facility] [place] Delivery Date: 09/29/06 Last Updated by: Michelle Rehman Pre-eclampsia. Shagufta- baby in [facility] for 3 weeks d/t prematurity Delivery Date: 04/05/17 Last Updated by: Michelle Rehman pre-eclampsia. Crystal- delivered at [facility] [place], kept for prematurity for three weeks. Exam Narrative Exam Narrative: General: Alert, well appearing, well nourished, vomiting. Head: Normocephalic, atraumatic Neck: Trachea midline, Neck supple. ENT: MMM. Cardiac: RRR, no murmurs appreciated Resp: No respiratory distress. CTAB. Abd: Soft, non-distended, nontender : No suprapubic tenderness. No CVA tenderness. Extremities: No deformities. No peripheral edema. Neurologic: GCS 15. Moves all extremities freely against gravity Course Vital Signs Vital signs: Vital Signs Temperature 36.5 C 06/19/23 10:03 Pulse 72 06/19/23 10:03 Respiratory Rate 22 06/19/23 10:03 Blood Pressure 170/82 H 06/19/23 10:03 Pulse Oximetry 98 06/19/23 10:03 Temperature 36.5 C 06/19/23 10:03 Temperature Source Skin 06/19/23 10:03 Pulse 72 06/19/23 10:03 Respiratory Rate 22 06/19/23 10:03 Respiratory Effort Normal 06/19/23 10:07 Blood Pressure 170/82 H 06/19/23 10:03 Blood Pressure Position Sitting 06/19/23 10:03 Pulse Oximetry 98 06/19/23 10:03 Oxygen Delivery Method Room Air 06/19/23 10:03 Oxygen Flow Rate 0 06/19/23 10:03 Pain Level 10 06/19/23 10:03
[2023-06-19] MEDS: Vitamins B Comp w/C TAB 1 TAB PO (10:45)
[2023-06-19 10:52] LABS: Abs Immature Grans 0.08 10^3/uL (0.0-0.06); Absolute Basophil Count 0.06 10^3/uL (0.0-0.2); Absolute Eosinophil Count 0.11 10^3/uL (0.0-0.7); Absolute Lymphocyte Count 1.64 10^3/uL (1.2-3.4); Absolute Monocyte Count 0.39 10^3/uL (0.1-0.8); Basophils % 0.4; Eosinophils % 0.8; HCT 41.6 % (36.0-46.0); HGB 13.9 g/dL (11.2-15.7); Immature Grans % 0.6; Lymphocytes % 11.5; MCH 28.3 pg (27.0-33.0); MCHC 33.4 % (32.0-36.0); MCV 85 fL (80-95); MPV 9.1 fL (8.0-11.0); Monocytes % 2.7; Platelet Count 385 10^3/uL (130-400); RBC 4.92 10^6/uL (3.93-5.22); RDW 13.6 % (11.7-14.6); RDW-SD 42.4 fL
[2023-06-19 10:57] LABS: Absolute Neutrophil Count 12.01 10^3/uL (1.2-6.7)
[2023-06-19 11:10] LABS: ALT 25 U/L (14-59); AST 29 U/L (15-37); Albumin 3.8 g/dL (3.4-5.0); Alkaline Phosphatase 44 U/L (46-116); Anion Gap 12.6 mmol/L (3-11); BUN 9 mg/dL (7-18); Bilirubin, Total 0.4 mg/dL (0.2-1.0); CO2 23.4 mmol/L (21.0-32.0); CREATININE 0.7 mg/dL (0.55-1.02); Calcium 9.6 mg/dL (8.5-10.1); Chloride 99 mmol/L (98-107); Estimated GFR 114.88 (mL/min/1.73m2); Glucose 147 mg/dL (74-106); Magnesium 1.6 mg/dL (1.8-2.4); Potassium 4.2 mmol/L (3.5-5.1); Sodium 135 mmol/L (136-145); Total Protein 8.9 g/dL (6.4-8.2)
--- NOTE | 2023-06-19 11:15 | RT.EKG_ITS ---
APPROVED REPORT Exam: Resting ECG Reason for Exam: QTC monitoring Patient Location: E HR:72 bpm ECG Measurements Heart Rate 72 AXIS SC 151 P 44 QRSd 76 QRS 52 QT 480 T 40 QTc 528 Conclusion Sinus rhythm... V-rate 60- 99 Prolonged QT interval...QTc >510mS
[2023-06-19 11:17] LABS: Bilirubin Negative (Negative); Blood Negative (Negative); Clarity Cloudy (Clear); Glucose Negative (Negative); Ketones >=160 mg/dL (Negative); Leukocyte Esterase Trace (Negative); Nitrite Negative (Negative)
[2023-06-19] MEDS: diphenhydrAMINE 50 MG/ML VIAL 25 MG IVP (11:22)
[2023-06-19] MEDS: Ondansetron 4 MG/2 ML VIAL IVP (11:23)
[2023-06-19] MEDS: Normal Saline 1,000 ML 1000 ML IV (11:24)
[2023-06-19 11:29] LABS: Epithelial Cells Few HPF (Negative); RBC 0-2 HPF (0-2)
[2023-06-19 11:30] LABS: C & S Indicated? Yes; Crystals Moderate Amorphous HPF (Negative); Mucus Negative (Negative)
[2023-06-19 11:32] LABS: Bacteria Few HPF (Negative)
[2023-06-19] MEDS: methylPREDNISolone SUCC 125 MG VIAL IVP (12:30)
[2023-06-19] MEDS: Calcium Carbonate *TUMS* 500 MG CHEW 1000 MG PO (14:02)
[2023-06-19] MEDS: LORazepam 2 MG/ML VIAL 1 MG IVP (14:25)
== END 2023-06-19 16:16 | disposition home or self-care (01) ==
PROVIDERS: Emergency Provider Student in an Organized Health Care Education/Training Program; PCP Nurse Practitioner Family
DX: O21.0 Mild hyperemesis gravidarum (principal); N39.0 Urinary tract infection, site not specified
CPT/HCPCS: 80053; 93005; 96365; 96375; 96376; 99284; 76801; 81003; 81015; 83735; 85025; 87086; 93010; J1200; J2060; J2405; J2930

== ENCOUNTER 2023-06-28 02:23 | Outpatient (CLI) | payer MEDICAID, SELFPAY ==
[2023-06-28 11:21] LABS: Abs Immature Grans 0.07 10^3/uL (0.0-0.06); Absolute Basophil Count 0.07 10^3/uL (0.0-0.2); Absolute Eosinophil Count 0.38 10^3/uL (0.0-0.7); Absolute Lymphocyte Count 3.35 10^3/uL (1.2-3.4); Basophils % 0.5; Eosinophils % 2.8; HCT 36.3 % (36.0-46.0); HGB 12.3 g/dL (11.2-15.7); Immature Grans % 0.5; Lymphocytes % 24.7; MCH 29.1 pg (27.0-33.0); MCHC 33.9 % (32.0-36.0); MCV 86 fL (80-95); MPV 9.7 fL (8.0-11.0); Monocytes % 6.6; Neutrophils % 64.9; Platelet Count 346 10^3/uL (130-400); RBC 4.23 10^6/uL (3.93-5.22); RDW 14.1 % (11.7-14.6); RDW-SD 43.9 fL; WBC 13.56 10^3/uL (4.4-10.8)
[2023-06-28 11:24] LABS: Absolute Monocyte Count 0.89 10^3/uL (0.1-0.8)
[2023-06-28 11:37] LABS: ALT 18 U/L (14-59); AST 14 U/L (15-37); Albumin 3.1 g/dL (3.4-5.0); Alkaline Phosphatase 44 U/L (46-116); Anion Gap 10.7 mmol/L (3-11); BUN 5 mg/dL (7-18); Bilirubin, Total 0.2 mg/dL (0.2-1.0); CO2 23.3 mmol/L (21.0-32.0); CREATININE 0.6 mg/dL (0.55-1.02); Calcium 8.6 mg/dL (8.5-10.1); Chloride 102 mmol/L (98-107); Estimated GFR 119.23 (mL/min/1.73m2); Glucose 128 mg/dL (74-106); Potassium 3.5 mmol/L (3.5-5.1); Sodium 136 mmol/L (136-145); Total Protein 7.3 g/dL (6.4-8.2)
[2023-06-28 13:41] LABS: Glucose,1 Hr (Glucola) 128 mg/dL (80-140)
[2023-06-29 08:17] LABS: Hepatitis B Surface Ag Negative (Negative)
[2023-06-29 08:31] LABS: Hepatitis C Ab w Rflx HCV PCR Reactive (Negative)
[2023-06-29 09:11] LABS: HIV-1/2 Ag & Ab Screen Negative (Negative)
[2023-06-29 11:13] LABS: Rubella IgG Ab (UVM) Positive (See Note); Varicella IgG Antibody Positive (See Note)
[2023-06-29 11:49] LABS: HCV RNA Qualitative Undetected (Undetected)
[2023-06-30 16:20] LABS: Syphilis IgG w/Reflex Nonreactive (Nonreactive)
== END 2023-06-28 02:24 | disposition home or self-care (01) ==
LOC: LBO 02:23
PROVIDERS: PCP Nurse Practitioner Family; Visit Provider Advanced Practice Midwife
DX: O09.291 Supervision of pregnancy with other poor reproductive or obstetric history, first trimester
CPT/HCPCS: 36415; 80053; 81220; 81222; 82950; 86787; 86803; 86900; 86901; 87340; 87389; 87522; 85025; 86762; 86780

== ENCOUNTER 2023-06-28 10:06 | Outpatient (REF) | payer MEDICAID, SELFPAY ==
--- NOTE | 2023-06-28 09:35 | PAPFT_PTH ---
PATIENT: Gabi Tyler LOC: [facility] U#:[id number] AGE/SX: 37/F ROOM: RE06/28/[address]: Clara Mascorro CNM : 1985 BED: DIS: 06/28/2023 SPEC #: [id number] RECD: 06/28/23 13:14 STATUS: CHARLI REQ #: [id number] [place]: 06/28/23 09:[address]: Clara Mascorro DEPT: [facility] Cytology RECD BY: Catherine Peres ENTERED: 06/28/23 13:14 SP TYPE: PAPFT OTHR DR: MINNIE NICHOLS NP Tissues: 1 - CX/ENDOCX FOR PAP SMEARS Procedures: PAP THIN PREP/UVM Screening Comments: [id number] (CHLAMYDIA/GC)
[2023-06-28 13:06] LABS: *AMPHETAMINES SCREEN URINE Negative (Negative); *BARBITURATES SCREEN URINE Negative (Negative); *BENZODIAZEPINES SCREEN URINE Negative (Negative); Cannabinoids THC Positive (Negative); Cocaine Screen,Urine Negative (Negative); METHADONE URINE SCREEN Negative (Negative); OPIATES URINE SCREEN Negative (Negative); PROTEIN 23.5 mg/dL; Prot/Crea Ur Ratio 0.28
[2023-06-28 13:08] LABS: Tricyclic Antidepressants Negative (Negative)
[2023-06-29 15:17] LABS: Chlamydia Result Negative (Negative); GC Result Negative (Negative)
[2023-07-04 13:26] LABS: Buprenorphine Negative ng/mL (Cutoff: 5.0); Norbuprenorphine Negative ng/mL (Cutoff: 2.5)
== END 2023-06-28 10:07 | disposition home or self-care (01) ==
LOC: LBN 10:06
PROVIDERS: PCP Nurse Practitioner Family; Visit Provider Advanced Practice Midwife
DX: O09.291 Supervision of pregnancy with other poor reproductive or obstetric history, first trimester; Z12.4 Encounter for screening for malignant neoplasm of cervix; Z11.3 Encounter for screening for infections with a predominantly sexual mode of transmission
CPT/HCPCS: 80307; 80348; 87491; 87591; 88142; 82565; 84156; 87086

== ENCOUNTER 2023-06-30 04:35 | Outpatient (CLI) | payer MEDICAID, SELFPAY ==
[2023-06-30 11:46] LABS: Panorama Kit Sent via Fed Ex
[2023-07-08 17:52] LABS: Result Summary NEGATIVE; Specimen WB Whole Blood
== END 2023-06-30 04:36 | disposition home or self-care (01) ==
LOC: LBO 04:35
PROVIDERS: PCP Nurse Practitioner Family; Visit Provider Advanced Practice Midwife
DX: Z34.91 Encounter for supervision of normal pregnancy, unspecified, first trimester
CPT/HCPCS: 36415; 81220; 81222; 86850; 86900; 86901

== ENCOUNTER 2023-07-26 13:52 | Outpatient (REF) | payer MEDICAID, SELFPAY ==
[2023-07-28 11:36] LABS: GA used in risk estimate Scan estimate; IVF Pregnancy No; Initial or repeat testing Initial testing; Insulin dependent diabetes No; Maternal Weight 165 lbs; Number of Fetuses 1; Physician Phone Number 802-748-7300; Prev Pregnancy w/NTD No; RECOMMENDED FOLLOW UP None.; Results Summary Normal risk
== END 2023-07-26 13:53 | disposition home or self-care (01) ==
LOC: LBN 13:52
PROVIDERS: PCP Nurse Practitioner Family; Visit Provider Obstetrics & Gynecology
DX: Z34.91 Encounter for supervision of normal pregnancy, unspecified, first trimester (principal); Z86.19 Personal history of other infectious and parasitic diseases
CPT/HCPCS: 36415; 82105; 87480; 87510; 87660

== ENCOUNTER 2023-07-28 10:37 | Emergency (ER) | payer MEDICAID, SELFPAY ==
[2023-07-28] VITALS (47 sets, daily range): BP systolic 130–190; BP diastolic 54–131; PULSE 64–100; RESP 10–28; TEMP 36.2–37; O2SAT 95–100
--- NOTE | 2023-07-28 11:00 | RT.EKG_ITS ---
APPROVED REPORT Exam: Resting ECG Reason for Exam: chest pain Patient Location: E HR:79 bpm ECG Measurements Heart Rate 79 AXIS AZ 122 P 27 QRSd 72 QRS 72 QT 454 T 66 QTc 519 Conclusion Sinus rhythm...normal P axis, V-rate 60- 99 Prolonged QT interval...QTc >510mS Physician: no stemi
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
--- NOTE | 2023-07-28 11:15 | DI.US_ITS ---
Exam(s) US OB 2-3 TRIMESTER EXAM: US OB 2-3 TRIMESTER CLINICAL HISTORY: severe ABD pain in , +peritoneal signs. TECHNIQUE: Transabdominal obstetrical ultrasound performed. COMPARISON: US US OB 1ST TRIMESTER from 06/19/2023 FINDINGS: Number of fetuses: One. position: Vertex. Placental grade: 1 Placental location: Posterior, grade 1. Appears intact.. Cervix not well seen. Bladder not full. BIOMETRIC DATA: BPD: 36mm = 17+ 3 weeks HC: 138mm = 17+ 1 weeks AC: 111mm = 16+ 6 weeks FL: 21mm = 16+ 1 weeks EFW: 164 grms 57% Composite Age: 16+ 6 weeks EDC by US: 06 January 2024 Heart Rate: 143BPM Amniotic fluid : Amount of fluid is within normal limits. IMPRESSION: 1. Single live intrauterine gestation with composite age 16+ 6 weeks.. 2. Placenta appears intact. DATA REPOSITORY:
--- NOTE | 2023-07-28 11:15 | DI.US_ITS ---
Exam(s) US ABDOMEN LIMITED EXAM: US ABDOMEN LIMITED CLINICAL HISTORY: RUQ pain TECHNIQUE: Ultrasound abdomen performed using standard protocol. COMPARISON: CT CT ABDOMEN PELVIS W from 05/19/2022 US US ABDOMEN from 05/01/2023 US US OB 1ST TRIMESTER from 06/19/2023 FINDINGS: LIVER: Enlarged at 19.3 cm in length. Slightly echogenic consistent with hepatic steatosis. Unchang ed from prior. Normalechogenicity. No focal liver lesions are seen.. GALLBLADDER: No evidence of cholelithiasis. No evidence of wall thickening. No pericholecystic fluid identified. COLEMAN'S SIGN: Negative. BILIARY SYSTEM: No intrahepatic or extrahepatic biliary ductal dilation. RIGHT KIDNEY: Normal size. No evidence of renal calculi. No evidence of hydronephrosis. No suspicious renal mass. No cyst identified. PANCREAS: Normal where visualized. ABDOMINAL AORTA AND IVC: Visualized portions normal caliber. ASCITES: None seen. IMPRESSION: Stable appearance of mildly enlarged liver with mild hepatic steatosis. Gallbladder appears normal. DATA REPOSITORY:
[2023-07-28] MEDS: Ondansetron O.D.T. 4 MG TABEF PO (11:49)
[2023-07-28 11:56] LABS: Abs Immature Grans 0.14 10^3/uL (0.0-0.06); Absolute Basophil Count 0.07 10^3/uL (0.0-0.2); Basophils % 0.4; Eosinophils % 1.7; HCT 35.6 % (36.0-46.0); HGB 12.2 g/dL (11.2-15.7); Immature Grans % 0.8; Lymphocytes % 15.4; MCH 29.1 pg (27.0-33.0); MCHC 34.3 % (32.0-36.0); MCV 85 fL (80-95); MPV 9.2 fL (8.0-11.0); Monocytes % 4.7; Platelet Count 385 10^3/uL (130-400); RBC 4.19 10^6/uL (3.93-5.22); RDW-SD 39.9 fL; WBC 17.39 10^3/uL (4.4-10.8)
[2023-07-28 11:57] LABS: Absolute Lymphocyte Count 2.68 10^3/uL (1.2-3.4); Absolute Monocyte Count 0.82 10^3/uL (0.1-0.8); Absolute Neutrophil Count 13.39 10^3/uL (1.2-6.7)
[2023-07-28] MEDS: ACETAMINOPHEN 1,000 MG/100 ML BTL 400 MG IVPB (12:02)
[2023-07-28] MEDS: Normal Saline 1,000 ML 1000 ML IV (12:02)
[2023-07-28 12:10] LABS: INR 0.9 (0.9-1.1); PTT Activated 23.3 sec (23.6-32.8); Prothrombin Time 9.5 sec (9.1-11.1)
[2023-07-28] MEDS: Ondansetron 4 MG/2 ML VIAL IVP (12:14)
[2023-07-28 12:17] LABS: ALT 17 U/L (14-59); AST 13 U/L (15-37); Alkaline Phosphatase 51 U/L (46-116); Anion Gap 12.9 mmol/L (3-11); BUN 7 mg/dL (7-18); Bilirubin, Total 0.2 mg/dL (0.2-1.0); C-Reactive Protein 2.86 mg/dL (0.0-0.3); CO2 22.1 mmol/L (21.0-32.0); CREATININE 0.6 mg/dL (0.55-1.02); Calcium 9.7 mg/dL (8.5-10.1); Chloride 101 mmol/L (98-107); Estimated GFR 119.23 (mL/min/1.73m2); Glucose 137 mg/dL (74-106); LDH 200 U/L (81-234); Lipase 25 U/L (16-77); Magnesium 1.5 mg/dL (1.8-2.4); Potassium 3.5 mmol/L (3.5-5.1); Sodium 136 mmol/L (136-145); Total Protein 7.8 g/dL (6.4-8.2)
[2023-07-28 12:18] LABS: Troponin I < 50 ng/L (<or=60)
[2023-07-28 12:28] LABS: Procalcitonin < 0.1 ng/mL
[2023-07-28] MEDS: fentaNYL 100 MCG/2 ML VIAL IVP ×2 (13:23→14:45)
[2023-07-28] MEDS: MAGNESIUM SULFATE 4 GM/100 ML BAG IVPB (14:51)
[2023-07-28 14:57] LABS: Bilirubin Negative (Negative); Blood Negative (Negative); Clarity Cloudy (Clear); Glucose Negative (Negative); Ketones 80 mg/dL (Negative); Leukocyte Esterase Negative (Negative); Nitrite Negative (Negative); Urobilinogen 0.2 mg/dL (Up to 0.2); pH 8.5 (5-8)
[2023-07-28 15:02] LABS: *AMPHETAMINES SCREEN URINE Negative (Negative); *BARBITURATES SCREEN URINE Negative (Negative); *BENZODIAZEPINES SCREEN URINE Negative (Negative); Cannabinoids THC Positive (Negative); Cocaine Screen,Urine Negative (Negative); METHADONE URINE SCREEN Negative (Negative); OPIATES URINE SCREEN Negative (Negative)
[2023-07-28 15:05] LABS: Tricyclic Antidepressants Positive (Negative)
[2023-07-28] MEDS: diphenhydrAMINE 50 MG/ML VIAL 25 MG IVP (15:36)
[2023-07-28] MEDS: Metoclopramide 10 MG/2 ML VIAL 5 MG IVP (15:36)
--- NOTE | 2023-07-28 15:47 | W.EDPROG ---
Date of service: 07/28/23 Time of Service: 15:47 Medical Decision Making Care assumed from provider (GLENNA Banuelos) Please see their initial HPI, PE, and documentation. Discussed patient details and case and pending workup and disposition. Patient is hemodynamically stable, and alert and oriented. At the time of signout awaiting OB ultrasound and reevaluation. US results arenoted below. Informed by staffing clerk that patients O2 sat after the mag, Reglan, and Benadryl has dropped slightly to 91%, placed on 2Ln/c. Will try PO challenge. Patient tolerating Po without difficulty. Will plan to discharge with Reglan prescription and Follow up with REHAB DIRECTOR OCCUPATIONAL THERAPIST. This text was generated using Kidboxation system, please disregard any oddities of phrase or misspellings. Imaging Data Radiologic Study: Imaging: Ultrasound Radiologist's impression: COMPARISON: US US OB 1ST TRIMESTER from 06/19/2023 FINDINGS: Number of fetuses: One. position: Vertex. Placental grade: 1 Placental location: Posterior, grade 1. Appears intact.. Cervix not well seen. Bladder not full. BIOMETRIC DATA: BPD: 36mm = 17+ 3 weeks HC: 138mm = 17+ 1 weeks AC: 111mm = 16+ 6 weeks FL: 21mm = 16+ 1 weeks EFW: 164 grms 57% Composite Age: 16+ 6 weeks EDC by US: 06 January 2024 Heart Rate: 143BPM Amniotic fluid : Amount of fluid is within normal limits. IMPRESSION: 1. Single live intrauterine gestation with composite age 16+ 6 weeks.. 2. Placenta appears intact. Lab Data Lab results reviewed: Yes I reviewed the patient's lab results. Labs: Laboratory Tests Range/Units 07/28/23 07/28/23 11:50 14:40 WBC (4.4-10.8) 10^3/uL 17.39 H RBC (3.93-5.22) 10^6/uL 4.19 Hgb (11.2-15.7) g/dL 12.2 Hct (36.0-46.0) % 35.6 L MCV (80-95) fL 85 MCH (27.0-33.0) pg 29.1 MCHC (32.0-36.0) % 34.3 RDW (11.7-14.6) % 13.0 Plt Count (130-400) 10^3/uL 385 MPV (8.0-11.0) fL 9.2 Immature Gran % 0.8 Neutrophils % 77.0 Lymphocytes % 15.4 Monocytes % 4.7 Eosinophils % 1.7 Basophils % 0.4 Nucleated RBC % (0.0-0.3) % 0.0 Absolute Neutrophils (1.2-6.7) 10^3/uL 13.39 H Absolute Lymphocytes (1.2-3.4) 10^3/uL 2.68 Absolute Monocytes (0.1-0.8) 10^3/uL 0.82 H Absolute Eosinophils (0.0-0.7) 10^3/uL 0.30 Absolute Basophils (0.0-0.2) 10^3/uL 0.07 PT (9.1-11.1) sec 9.5 INR (0.9-1.1) 0.9 APTT (23.6-32.8) sec 23.3 L VBG Lactate (0.6-1.4) mmol/L 1.0 Sodium (136-145) mmol/L 136 Potassium (3.5-5.1) mmol/L 3.5 Chloride (98-107) mmol/L 101 Carbon Dioxide (21.0-32.0) mmol/L 22.1 Anion Gap (3-11) mmol/L 12.9 H BUN (7-18) mg/dL 7 Creatinine (0.55-1.02) mg/dL 0.6 Est GFR (CKD-EPI 2020) (mL/min/1.73m2) 119.23 Glucose (74-106) mg/dL 137 H Calcium (8.5-10.1) mg/dL 9.7 Magnesium (1.8-2.4) mg/dL 1.5 L Total Bilirubin (0.2-1.0) mg/dL 0.2 AST (15-37) U/L 13 L ALT (14-59) U/L 17 Alkaline Phosphatase (46-116) U/L 51 Lactate Dehydrogenase (81-234) U/L 200 Troponin I (<or=60) ng/L < 50 C-Reactive Protein (0.0-0.3) mg/dL 2.86 H Total Protein (6.4-8.2) g/dL 7.8 Albumin (3.4-5.0) g/dL 3.0 L Lipase (16-77) U/L 25 Procalcitonin ng/mL < 0.1 Urine Color (Yellow) Yellow Urine Clarity (Clear) Cloudy Urine pH (5-8) 8.5 H Ur Specific Jenkins (1.005-1.025) 1.020 Urine Protein (Negative) mg/dL Negative Urine Ketones (Negative) mg/dL 80 H Urine Blood (Negative) Negative Urine Nitrite (Negative) Negative Urine Bilirubin (Negative) Negative Urine Urobilinogen (Up to 0.2) mg/dL 0.2 Ur Leukocyte Esterase (Negative) Negative Urine Glucose (Negative) mg/dL Negative Urine Opiates Screen (Negative) Negative Urine Methadone Screen (Negative) Negative Ur Barbiturates Screen (Negative) Negative Ur Tricyclics Screen (Negative) Positive A Ur Amphetamines Screen (Negative) Negative U Benzodiazepines Scrn (Negative) Negative Urine Cocaine Screen (Negative) Negative Ur THC Screen (Negative) Positive A Sign Out Sign Out Data: Sign Out Comment: Await OBS U/S, re-eval after reglan/benadryl, has had 200mcg fentanyl. ?Cyclical vomiting with THC use, vs MRI ABD if no improvement or OBS admit for intractable vomiting Last updated by Bertin Plaza PA at 07/28/23 15:39 Discharge Plan Disposition Patient Disposition: Home Condition: Stable Discharge Details Clinical Impression: Abdominal pain during , Nausea and vomiting in Primary Care Provider: MINNIE NICHOLS ED Provider: Lisette Lanza Norton Meds and New Rx's Prescriptions: New metoclopramide HCl [Reglan] 5 mg tablet 5 mg PO QACHS PRN (Reason: nausea and vomiting) Qty: 14 0RF Rx Instructions: Take one tablet by mouth before meals and at bedtime as needed for nausea and vomiting No Action omeprazole 20 mg capsule,delayed release(DR/EC) 20 mg PO DAILY docusate sodium [Colace] 100 mg capsule 100 mg PO BID Qty: 90 0RF aspirin [Adult Low Dose Aspirin] 81 mg tablet,delayed release (DR/EC) 81 mg PO DAILY Qty: 90 3RF Rx Instructions: alternate one tablet then next day two tablets for remainder of fluoxetine 40 mg capsule 40 mg PO DAILY hydroxyzine pamoate 25 mg capsule 100 mg PO QHS PRN Patient Comments: 06/20/23- pt reports taking four 25 mg cap (100 mg total) at night. Plus Vitamin-Mineral 27 mg iron- 1 mg tablet 1 tab PO DAILY Qty: 90 4RF budesonide-formoterol [Symbicort] 80-4.5 mcg/actuation HFA aerosol inhaler 1 puff inhalation BID levothyroxine 50 mcg tablet 75 mcg PO DAILY methadone 10 mg/mL concentrate 45 mg PO DAILY Discharge Instructions Instructions: Acute Nausea and Vomiting (ED), Abdominal Pain (ED) Additional Instructions: Ultrasound is within normal limits it appears you are 16 weeks and 6 days. Estimated date of confinement your due date is December 2023. Advance diet as tolerated. Stay away from anything fried fatty spicy or dairy. Clear liquids for the next couple of days. Take the nausea medication as directed. Follow-up with your REHAB DIRECTOR OCCUPATIONAL THERAPIST within the next 3 to 5 days. Return to the ER for any worsening or concerns. Referrals: MINNIE NICHOLS NP [Primary Care Provider] - Savanah Perez DO [OSTEOPATHIC DOCTOR] - 5 days
== END 2023-07-28 16:44 | disposition home or self-care (01) ==
PROVIDERS: Physician Assistant; Emergency Provider Registered Nurse Emergency; PCP Nurse Practitioner Family
DX: O26.892 Other specified pregnancy related conditions, second trimester (principal); R10.30 Lower abdominal pain, unspecified; R11.2 Nausea with vomiting, unspecified; O26.612 Liver and biliary tract disorders in pregnancy, second trimester; R16.0 Hepatomegaly, not elsewhere classified; Z3A.16 16 weeks gestation of pregnancy
CPT/HCPCS: 00123; 36415; 80053; 80307; 83690; 84145; 93005; 96361; 96365; 96375; 96376; 99284; 76705; 76805; 81003; 83605; 83615; 83735; 84484; 85025; 85610; 85730; 86140; 93010; J0131; J1200; J2405; J2765; J3010; J3475

== ENCOUNTER 2023-08-13 17:10 | Emergency (ER) | payer MEDICAID, SELFPAY ==
[2023-08-13] VITALS (28 sets, daily range): BP systolic 135–164; BP diastolic 90–101; PULSE 80–114; RESP 18; TEMP 36.5; O2SAT 95–100
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
[2023-08-13] MEDS: Normal Saline 1,000 ML 1000 ML IV ×2 (17:53→19:55)
[2023-08-13] MEDS: diphenhydrAMINE 50 MG/ML VIAL 25 MG IVP ×3 (18:00→21:28)
[2023-08-13] MEDS: Metoclopramide 10 MG/2 ML VIAL IVP (18:02)
[2023-08-13] MEDS: Promethazine 25 MG SUPP PR (19:02)
[2023-08-13] MEDS: ACETAMINOPHEN 1,000 MG/100 ML BTL 400 MG IVPB (20:10)
[2023-08-13] MEDS: Prochlorperazine 10 MG/2 ML VIAL IVP (20:53)
[2023-08-13 21:10] LABS: Abs Immature Grans 0.14 10^3/uL (0.0-0.06); Absolute Basophil Count 0.04 10^3/uL (0.0-0.2); Absolute Monocyte Count 0.26 10^3/uL (0.1-0.8); Basophils % 0.2; Eosinophils % 0.1; HCT 33.6 % (36.0-46.0); HGB 11.2 g/dL (11.2-15.7); Immature Grans % 0.7; Lymphocytes % 5.5; MCH 28.9 pg (27.0-33.0); MCHC 33.3 % (32.0-36.0); MCV 87 fL (80-95); MPV 9.3 fL (8.0-11.0); Monocytes % 1.3; Neutrophils % 92.2; Platelet Count 365 10^3/uL (130-400); RBC 3.88 10^6/uL (3.93-5.22); RDW 12.6 % (11.7-14.6); RDW-SD 39.5 fL; WBC 20.28 10^3/uL (4.4-10.8)
[2023-08-13 21:11] LABS: Absolute Eosinophil Count 0.02 10^3/uL (0.0-0.7); Absolute Lymphocyte Count 1.12 10^3/uL (1.2-3.4)
[2023-08-13 21:20] LABS: Anion Gap 12.3 mmol/L (3-11); BUN 5 mg/dL (7-18); CO2 22.7 mmol/L (21.0-32.0); CREATININE 0.6 mg/dL (0.55-1.02); Calcium 8.5 mg/dL (8.5-10.1); Chloride 101 mmol/L (98-107); Estimated GFR 119.23 (mL/min/1.73m2); Glucose 111 mg/dL (74-106); Sodium 136 mmol/L (136-145)
[2023-08-13] MEDS: Methadone 10 MG TAB 20 MG PO (21:42)
[2023-08-13] MEDS: Potassium Chloride 20 MEQ TABCR 40 MEQ PO (21:51)
[2023-08-13 21:53] LABS: Bilirubin Negative (Negative); Blood Negative (Negative); Clarity Clear (Clear); Glucose Negative (Negative); Ketones 40 mg/dL (Negative); Leukocyte Esterase Negative (Negative); Nitrite Negative (Negative); Specific Gravity 1.015 (1.005-1.025); Urobilinogen 0.2 mg/dL (Up to 0.2); pH 6.5 (5-8)
== END 2023-08-13 22:08 | disposition home or self-care (01) ==
PROVIDERS: Emergency Provider Nurse Practitioner Acute Care; PCP Nurse Practitioner Family
DX: O21.0 Mild hyperemesis gravidarum (principal); F11.11 Opioid abuse, in remission; B17.10 Acute hepatitis C without hepatic coma; F17.200 Nicotine dependence, unspecified, uncomplicated; F19.10 Other psychoactive substance abuse, uncomplicated
CPT/HCPCS: 80048; 96361; 96365; 96375; 96376; 99284; 81003; 85025; J0131; J0780; J1200; J2765

== ENCOUNTER 2023-08-20 21:03 | Observation (INO) | payer MEDICAID, SELFPAY ==
[2023-08-20] VITALS (25 sets, daily range): BP systolic 121–143; BP diastolic 67–85; PULSE 67–86; RESP 14–18; TEMP 36.8; O2SAT 93–100
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
[2023-08-20 23:06] LABS: *AMPHETAMINES SCREEN URINE Negative (Negative); *BARBITURATES SCREEN URINE Negative (Negative); *BENZODIAZEPINES SCREEN URINE Negative (Negative); Cannabinoids THC Positive (Negative); Cocaine Screen,Urine Negative (Negative); METHADONE URINE SCREEN Positive (Negative); OPIATES URINE SCREEN Negative (Negative)
[2023-08-20 23:10] LABS: Tricyclic Antidepressants Negative (Negative)
[2023-08-20] MEDS: Acetaminophen 325 MG TAB 650 MG PO (23:32)
== END 2023-08-21 00:31 | disposition home or self-care (01) ==
LOC: ER 21:43 → OBS 08-21 09:51
PROVIDERS: Admitting Provider Obstetrics & Gynecology Gynecology; Emergency Provider Nurse Practitioner Acute Care; PCP Nurse Practitioner Family; Visit Provider Obstetrics & Gynecology Gynecology
DX: O9A.212 Injury, poisoning and certain other consequences of external causes complicating pregnancy, second trimester (principal); Z3A.20 20 weeks gestation of pregnancy; W01.0XXA Fall on same level from slipping, tripping and stumbling without subsequent striking against object, initial encounter; R10.9 Unspecified abdominal pain; G89.11 Acute pain due to trauma; M25.561 Pain in right knee; O99.322 Drug use complicating pregnancy, second trimester; F11.20 Opioid dependence, uncomplicated; O99.332 Smoking (tobacco) complicating pregnancy, second trimester; F17.210 Nicotine dependence, cigarettes, uncomplicated; F12.10 Cannabis abuse, uncomplicated
CPT/HCPCS: 80053; 80307; 86900; 86901; 99285; 85025; G0378

== ENCOUNTER 2023-09-02 09:23 | Outpatient (CLI) | payer MEDICAID, SELFPAY ==
[2023-09-02] VITALS (9 sets, daily range): BP systolic 108–127; BP diastolic 62–72; PULSE 72–83; TEMP 36.8
[2023-09-02 11:46] LABS: *AMPHETAMINES SCREEN URINE Negative (Negative); *BARBITURATES SCREEN URINE Negative (Negative); *BENZODIAZEPINES SCREEN URINE Negative (Negative); Cannabinoids THC Positive (Negative); Cocaine Screen,Urine Negative (Negative); METHADONE URINE SCREEN Positive (Negative); OPIATES URINE SCREEN Negative (Negative)
[2023-09-02 11:47] LABS: Tricyclic Antidepressants Positive (Negative)
--- NOTE | 2023-09-02 12:36 | NUR.NOTE ---
at approximately 1220 RN went in room to adjust monitors. Pt complaining of severe pain from carpel tunnel reporting nothing is working to take the pain away. Pt then fell asleep mid conversation with RN and stayed sound asleep while RN was adjusting monitors. MD on way in. RN will follow up with md when she arrives. Nursing Note:
--- NOTE | 2023-09-02 13:10 | PGE_ITS ---
Date of service: 09/02/23 Time of Service: 13:13 Fetus A Heart Rate Baseline: 130 Assessment Note: Bedside sono shows an active fetus in transverse presentation. Assessment and Plan Assessment and plan (1) History of pre-eclampsia in prior , currently : Status: Acute Assessment and plan: Pt is a P2 @21.5wks with a h/o PEC who came in for a BP check after elevated reading at home. While on the center for several hours, all her BPs were normal. She also complains of arm pain for which she would like to go to the ED for further evaluation. Her abdominal pains seem consistent with round ligament pain. Her ultrasound show good movement. Objective Abnormal lab results 09/02/23 Range/Units 11:00 Urine Methadone Screen Positive A (Negative) Ur Tricyclics Screen Positive A (Negative) Ur THC Screen Positive A (Negative) Pulse BP 83 117/65 09/02/23 12:46 09/02/23 12:46 Laboratory Results Urine Opiates Screen Negative (Negative) 09/02/23 11:00 Urine Methadone Screen Positive (Negative) A 09/02/23 11:00 Ur Barbiturates Screen Negative (Negative) 09/02/23 11:00 Ur Tricyclics Screen Positive (Negative) A 09/02/23 11:00 Ur Amphetamines Screen Negative (Negative) 09/02/23 11:00 U Benzodiazepines Scrn Negative (Negative) 09/02/23 11:00 Urine Cocaine Screen Negative (Negative) 09/02/23 11:00 Ur THC Screen Positive (Negative) A 09/02/23 11:00 Vital Signs Reviewed: Yes Objective Narrative Objective Narrative: Pt is lying in bed in no acute distress. She is fairly drowsy though easily aroused and communicates without difficulty. On exam she reports shoulder pain when moving her arm to evaluate the numbness. Her abdomen is not particularly tender. Subjective Interval history since last seen: Pt called earlier this am due to right arm numbness for several days and then a home BP of 220/160. She says she was given the cuff when she was at [facility] [place]. She has a h/o PEC with PTD at 34wks x2. She denies headache or visual changes. On arrival to the center she also reports some cramping. On further ques tioning, it is abdominal pain that is worse with movements such as bending over. She denies any unusual discharge or bleeding. She says the arm issues are worse in the am. 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 She says the shoulder pain is bad enough she doesn't know if she can work with it. She has a h/o substance abuse and is on methadone. She has been seen repeatedly in the ED during the for nausea/vomiting and abdominal pain and has been given large amounts of fentanyl. Results Abnormal Lab Findings: Abnormal Labs 09/02/23 11:00 Urine Methadone Screen Positive A Ur Tricyclics Screen Positive A Ur THC Screen Positive A
--- NOTE | 2023-09-02 13:34 | W.OBNST ---
Date of service: 09/02/23 Time of Service: 12:45 NST Evaluation Reason for NST Reasons for Nonstress Test: OTHER, SEE COMMENT Reason for NST Other: BP check Gestational Age Gestational Age in Weeks and Days: 21 Weeks and 4Days Test and Monitor Explained Test/Monitor Explained: Test Explained, Monitor Explained and Patient Verbalized Understanding Vital Signs Blood Pressure: 114/72 Pulse: 83 Temperature: 98.3 F Urine Results Urine Protein: Positive Urine Ketones: Negative Urine Glucose: Negative Urine Blood: Negative NST Information Date on Monitor: 09/02/23 Time on Monitor: 11:05 Date off Monitor: 09/02/23 Time off Monitor: 12:52 Total Time on Monitor: 107 NST Interventions: PO Hydration NST Evaluation Patient States Movement: Present NST Results: Questionable Note Ultrasound Done: Biophysical Profile Reason for Biophysical Profile: Equivocal NST. Amniotic Fluid: 2 Muscle Tone: 2 Body Movements: 2 Breathing Movements: 0 NST Results: Questionable Total Biophysical Profile Score: 6 Other Pertinent Findings: Heart Rate and Presentation (transverse/variable) Coding for Biophysical Profile w/NST: Completed Exam. NST Note NST Reviewed and Verified by: Sarahi Quiles
[2023-09-08 15:28] LABS: Fentanyl Interpretation Negative.; Fentanyl by LC-MS/MS Not Detected; Norfentanyl by LC-MS/MS Not Detected
== END 2023-09-02 13:15 | disposition other institution (70) ==
LOC: BCD 09:28 → OBS 09:34
PROVIDERS: PCP Nurse Practitioner Family; Visit Provider Obstetrics & Gynecology
DX: O26.892 Other specified pregnancy related conditions, second trimester (principal); Z3A.21 21 weeks gestation of pregnancy; R03.0 Elevated blood-pressure reading, without diagnosis of hypertension
CPT/HCPCS: 80307; 99211; 59025; 80354

== ENCOUNTER 2023-09-02 13:20 | Emergency (ER) | payer MEDICAID, SELFPAY ==
[2023-09-02 13:23] VITALS: BP 119/56; PULSE 78; RESP 20; TEMP 36.1; O2SAT 98
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
== END 2023-09-02 14:19 | disposition home or self-care (01) ==
PROVIDERS: Emergency Provider Nurse Practitioner Family; PCP Nurse Practitioner Family
DX: S46.811A Strain of other muscles, fascia and tendons at shoulder and upper arm level, right arm, initial encounter (principal); X58.XXXA Exposure to other specified factors, initial encounter
CPT/HCPCS: 99283; 99284

== ENCOUNTER 2023-09-15 10:30 | Emergency (ER) | payer MEDICAID, SELFPAY ==
[2023-09-15] VITALS (60 sets, daily range): BP systolic 132–194; BP diastolic 72–177; PULSE 67–123; RESP 6–29; TEMP 36.6; O2SAT 98
[2023-09-15] MEDS: Normal Saline 1,000 ML 1000 ML IV (10:50)
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
[2023-09-15 11:04] LABS: Abs Immature Grans 0.18 10^3/uL (0.0-0.06); Absolute Basophil Count 0.07 10^3/uL (0.0-0.2); Absolute Monocyte Count 0.57 10^3/uL (0.1-0.8); Absolute Neutrophil Count 12.25 10^3/uL (1.2-6.7); Basophils % 0.5; Eosinophils % 0.7; HCT 36.7 % (36.0-46.0); HGB 12.5 g/dL (11.2-15.7); Immature Grans % 1.2; MCH 29.8 pg (27.0-33.0); MCHC 34.1 % (32.0-36.0); MCV 87 fL (80-95); MPV 9.4 fL (8.0-11.0); Monocytes % 3.8; Neutrophils % 81.8; Platelet Count 405 10^3/uL (130-400); RDW 12.8 % (11.7-14.6); RDW-SD 40.7 fL; WBC 14.97 10^3/uL (4.4-10.8)
--- NOTE | 2023-09-15 11:15 | DI.US_ITS ---
Exam(s) US OB F/U FACIAL/LVOT/RVOT EXAM: US OB F/U FACIAL/LVOT/RVOT CLINICAL HISTORY: cramping 23 week gestation; assessment of cervix. TECHNIQUE: Transabdominal obstetrical ultrasound was performed. COMPARISON: US POCUS EXAM from 09/02/2023 FINDINGS: There is a single viable intrauterine gestation with cardiac activity identified-153 bpm The fetus is presently in cephalic position . Amniotic fluid: There is a normal amount of amniotic fluid with an YUSUF of 10.99cm. Placental location: The placenta is posterior grade 1,with no evidence of placenta previa. Cervix: Cervical canal is closed. Cervical length is 4.[address] this at approximately 23 weeks and 2 days gestational age, implying ALMA of 01/10/2024. BPD measures 23 weeks and 1 day HC measures 23 weeks and 1 day AC measures 24 weeks and 1 day FL measures 22 weeks and 3 days Estimated weight is 591 gm-1 pound, 5 ounces Fetus is at the 40th percentile on the Hadlock scale. IMPRESSION:: Viable intrauterine gestation, as described above. DATA REPOSITORY:
[2023-09-15 11:18] LABS: INR 0.9 (0.9-1.1); PTT Activated 24.7 sec (23.6-32.8); Prothrombin Time 9.4 sec (9.1-11.1)
[2023-09-15] MEDS: Ondansetron 4 MG/2 ML VIAL IVP ×2 (11:22→12:49)
[2023-09-15 11:23] LABS: ALT 25 U/L (14-59); AST 16 U/L (15-37); Alkaline Phosphatase 61 U/L (46-116); Anion Gap 11.6 mmol/L (3-11); BUN 6 mg/dL (7-18); Bilirubin, Total 0.2 mg/dL (0.2-1.0); CO2 25.4 mmol/L (21.0-32.0); CREATININE 0.6 mg/dL (0.55-1.02); Chloride 101 mmol/L (98-107); Estimated GFR 119.23 (mL/min/1.73m2); Glucose 135 mg/dL (74-106); Magnesium 1.7 mg/dL (1.8-2.4); Potassium 3.7 mmol/L (3.5-5.1); Sodium 138 mmol/L (136-145); Total Protein 7.7 g/dL (6.4-8.2)
[2023-09-15] MEDS: Methadone 10 MG TAB 20 MG PO ×2 (11:33→17:06)
[2023-09-15] MEDS: ACETAMINOPHEN 1,000 MG/100 ML BTL 400 MG IVPB (11:34)
[2023-09-15 12:32] LABS: Uric Acid 3.2 mg/dL (2.6-6.0)
[2023-09-15 12:36] LABS: Bilirubin Negative (Negative); Blood Negative (Negative); Clarity Sl Cloudy (Clear); Glucose Negative (Negative); Ketones 80 mg/dL (Negative); Leukocyte Esterase Negative (Negative); Nitrite Negative (Negative); Urobilinogen 0.2 mg/dL (Up to 0.2)
[2023-09-15 12:42] LABS: LDH 249 U/L (81-234)
[2023-09-15] MEDS: hydrALAZINE 20 MG/ML VIAL 10 MG IVP ×3 (13:25→15:53)
[2023-09-15] MEDS: MAGNESIUM SULFATE 4 GM/100 ML BAG IVPB (13:28)
[2023-09-15] MEDS: Famotidine 20 MG/2 ML VIAL IVP (15:35)
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
[2023-09-15] MEDS: Labetalol 100 MG/20 ML VIAL 20 MG IVP (16:38)
== END 2023-09-15 18:19 | disposition short-term general hospital (02) ==
PROVIDERS: Emergency Provider Emergency Medicine; PCP Nurse Practitioner Family
DX: Z87.59 Personal history of other complications of pregnancy, childbirth and the puerperium; F11.20 Opioid dependence, uncomplicated; R10.30 Lower abdominal pain, unspecified; R11.2 Nausea with vomiting, unspecified; I10 Essential (primary) hypertension; Z34.92 Encounter for supervision of normal pregnancy, unspecified, second trimester
CPT/HCPCS: 76815; 80053; 96365; 96367; 96375; 96376; 99285; 81003; 83615; 83735; 84550; 85025; 85610; 85730; J0131; J0360; J2405; J3475

== ENCOUNTER 2023-10-04 11:01 | Outpatient (CLI) | payer MEDICAID, SELFPAY ==
[2023-10-04] VITALS (8 sets, daily range): BP systolic 121–189; BP diastolic 69–100; PULSE 70–100; RESP 20; TEMP 36.3–36.5; O2SAT 97
[2023-10-04] MEDS: Ondansetron 4 MG/2 ML VIAL IVP (11:40)
[2023-10-04] MEDS: Normal Saline Flush 10 ML SYR (11:57)
[2023-10-04] MEDS: Lactated Ringers 1,000 ML 1000 ML IV (11:58)
[2023-10-04] MEDS: Metoclopramide 10 MG/2 ML VIAL IVP (12:40)
[2023-10-04] MEDS: Normal Saline Flush 10 ML SYR IVP (12:42)
[2023-10-04 13:30] LABS: HCT 35.4 % (36.0-46.0); MCH 30.1 pg (27.0-33.0); MCHC 33.9 % (32.0-36.0); MCV 89 fL (80-95); MPV 10.4 fL (8.0-11.0); Platelet Count 275 10^3/uL (130-400); RBC 3.99 10^6/uL (3.93-5.22); RDW 13.2 % (11.7-14.6); RDW-SD 43.2 fL; WBC 18.61 10^3/uL (4.4-10.8)
[2023-10-04] MEDS: Methadone Liquid 10 MG/ML 45 MG PO (13:50)
[2023-10-04 14:16] LABS: Bilirubin Negative (Negative); Blood Negative (Negative); Clarity Cloudy (Clear); Glucose Negative (Negative); Ketones 40 mg/dL (Negative); Leukocyte Esterase Negative (Negative); Nitrite Negative (Negative); pH 8.5 (5-8)
[2023-10-04 14:27] LABS: Bacteria Negative HPF (Negative); C & S Indicated? No/Sq. Contamination; Casts Negative LPF (Negative); Crystals Moderate Amorphous HPF (Negative); Epithelial Cells Many HPF (Negative); Mucus Negative (Negative)
[2023-10-04 14:55] LABS: *AMPHETAMINES SCREEN URINE Negative (Negative); *BARBITURATES SCREEN URINE Negative (Negative); *BENZODIAZEPINES SCREEN URINE Negative (Negative); Cannabinoids THC Positive (Negative); Cocaine Screen,Urine Negative (Negative); METHADONE URINE SCREEN Negative (Negative); OPIATES URINE SCREEN Negative (Negative)
[2023-10-04 14:58] LABS: Tricyclic Antidepressants Positive (Negative)
--- NOTE | 2023-10-04 17:41 | W.OBNST ---
Date of service: 10/04/23 Time of Service: 17:41 NST Evaluation Reason for NST Reasons for Nonstress Test: OTHER, SEE COMMENT Reason for NST Other: Mom not feeling well Gestational Age Gestational Age in Weeks and Days: 27 Weeks and 6Days Test and Monitor Explained Test/Monitor Explained: Test Explained and Monitor Explained Vital Signs Blood Pressure: 121/71 Pulse: 87 Temperature: 97.7 F NST Information Date on Monitor: 10/04/23 Time on Monitor: 17:18 Time off Monitor: 17:40 NST Interventions: PO Hydration NST Evaluation Patient States Movement: Present FHR Baseline: 140 Variability: Moderate 6-25 bpm Accelerations: 10x10 Decelerations: None Note Ultrasound Done: N/A. NST Note Note: Pt is 26.4wks and arrived with nausea and abdominal pain. She was unable to keep her methadone or labetalol down this am due to the nausea. She denied contractions, vaginal bleeding, or discharge and reports normal movement. On exam her abdomen was soft to touch. She refused NST until the very end of her stay when she was feeling better. She received, zofran x1, reglan x1 and her methadone dose of 45mg, as well as 1L of LR. Her BPs were very labile and she was going to get IV Labetalol but then her repeat BP prior to giving it had improved. By discharge her BP was normal. She took a shower and a nap and woke up feeling much better with a desire for discharge. She will return for her next visit next week or call sooner with concerns. NST Reviewed and Verified by: Sarahi Quiles
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
== END 2023-10-04 18:20 | disposition home or self-care (01) ==
LOC: BCD 11:01 → OBS 11:07 → BCD 11:30 → OBS 11:31
PROVIDERS: PCP Nurse Practitioner Family; Visit Provider Obstetrics & Gynecology
DX: O26.892 Other specified pregnancy related conditions, second trimester (principal); R10.9 Unspecified abdominal pain; Z3A.27 27 weeks gestation of pregnancy
CPT/HCPCS: 36415; 80051; 80307; 85027; 96368; 59025; 81003; 81015; G0378; J2405; J2765

== ENCOUNTER 2023-10-06 10:02 | Emergency (ER) | payer MEDICAID, SELFPAY ==
[2023-10-06] VITALS (33 sets, daily range): BP systolic 110–174; BP diastolic 59–108; PULSE 75–91; RESP 10–26; O2SAT 90–100
--- NOTE | 2023-10-06 10:15 | RT.EKG_ITS ---
APPROVED REPORT Exam: Resting ECG Reason for Exam: hypertensiop, abd pain Patient Location: E HR:82 bpm ECG Measurements Heart Rate 82 AXIS MT 119 P 38 QRSd 77 QRS 43 QT 392 T 30 QTc 457 Conclusion Sinus rhythm...normal P axis, V-rate 60- 99
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
[2023-10-06] MEDS: Labetalol 100 MG/20 ML VIAL 20 MG IVP (10:56)
[2023-10-06 10:59] LABS: Absolute Basophil Count 0.05 10^3/uL (0.0-0.2); Absolute Eosinophil Count 0.12 10^3/uL (0.0-0.7); Absolute Lymphocyte Count 1.47 10^3/uL (1.2-3.4); Absolute Neutrophil Count 13.08 10^3/uL (1.2-6.7); Basophils % 0.3; Eosinophils % 0.8; HCT 35.2 % (36.0-46.0); HGB 11.7 g/dL (11.2-15.7); Immature Grans % 0.7; Lymphocytes % 9.6; MCH 29.7 pg (27.0-33.0); MCHC 33.2 % (32.0-36.0); MCV 89 fL (80-95); MPV 9.4 fL (8.0-11.0); Monocytes % 3.1; Neutrophils % 85.5; Platelet Count 340 10^3/uL (130-400); RBC 3.94 10^6/uL (3.93-5.22); RDW 13.2 % (11.7-14.6); RDW-SD 43.5 fL
[2023-10-06] MEDS: diphenhydrAMINE 50 MG/ML VIAL 25 MG IVP (10:59)
[2023-10-06 11:00] LABS: Absolute Monocyte Count 0.47 10^3/uL (0.1-0.8)
[2023-10-06] MEDS: Metoclopramide 10 MG/2 ML VIAL IVP (11:00)
[2023-10-06] MEDS: Lactated Ringers 250 ML 500 ML IV (11:07)
[2023-10-06 11:18] LABS: ALT 22 U/L (14-59); AST 15 U/L (15-37); Albumin 2.9 g/dL (3.4-5.0); Alkaline Phosphatase 68 U/L (46-116); Anion Gap 8.5 mmol/L (3-11); BUN 8 mg/dL (7-18); Bilirubin, Total 0.3 mg/dL (0.2-1.0); CO2 26.5 mmol/L (21.0-32.0); CREATININE 0.6 mg/dL (0.55-1.02); Calcium 8.9 mg/dL (8.5-10.1); Chloride 102 mmol/L (98-107); Estimated GFR 119.23 (mL/min/1.73m2); Glucose 115 mg/dL (74-106); Magnesium 1.8 mg/dL (1.8-2.4); Potassium 3.6 mmol/L (3.5-5.1); Sodium 137 mmol/L (136-145); Total Protein 7.5 g/dL (6.4-8.2); Troponin I < 50 ng/L (< or =60)
--- NOTE | 2023-10-06 11:41 | NUR.NOTE ---
PT is extremely drozy. methadone dose held at this time. Nursing Note:
--- NOTE | 2023-10-06 12:13 | NUR.NOTE ---
PT started on 2L NC per ED MDNursing Note:
[2023-10-06 12:56] LABS: Bilirubin Negative (Negative); Blood Negative (Negative); Clarity Sl Cloudy (Clear); Glucose Negative (Negative); Ketones 15 mg/dL (Negative); Leukocyte Esterase Negative (Negative); Nitrite Negative (Negative); Specific Gravity 1.015 (1.005-1.025); pH 7.5 (5-8)
--- NOTE | 2023-10-06 13:00 | NUR.NOTE ---
heart tones completed by L&D RN. [id number] Nursing Note:
--- NOTE | 2023-10-06 13:15 | NUR.NOTE ---
PT removed from O2 Nursing Note:
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
== END 2023-10-06 14:01 | disposition home or self-care (01) ==
PROVIDERS: Emergency Provider Student in an Organized Health Care Education/Training Program; PCP Nurse Practitioner Family
DX: O16.3 Unspecified maternal hypertension, third trimester (principal); O99.323 Drug use complicating pregnancy, third trimester; F11.91 Opioid use, unspecified, in remission; O21.2 Late vomiting of pregnancy; O99.333 Smoking (tobacco) complicating pregnancy, third trimester; F17.210 Nicotine dependence, cigarettes, uncomplicated; Z79.82 Long term (current) use of aspirin
CPT/HCPCS: 80053; 93005; 96374; 96375; 99283; 81003; 83735; 84484; 85025; 93010; J1200; J1920; J2765

== ENCOUNTER 2023-10-08 10:18 | Emergency (ER) | payer MEDICAID, SELFPAY ==
[2023-10-08 10:24] VITALS: BP 156/94; PULSE 84; RESP 18; TEMP 36; O2SAT 95
[2023-10-08 10:30] VITALS: BP 156/94; PULSE 84; RESP 18; TEMP 36; O2SAT 95
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
[2023-10-08] MEDS: Metoclopramide 10 MG/2 ML VIAL IVP (10:41)
[2023-10-08] MEDS: Normal Saline 1,000 ML 1000 ML IV (10:42)
[2023-10-08 10:54] LABS: Abs Immature Grans 0.09 10^3/uL (0.0-0.06); Absolute Lymphocyte Count 1.61 10^3/uL (1.2-3.4); Absolute Monocyte Count 0.55 10^3/uL (0.1-0.8); Basophils % 0.3; Eosinophils % 1.1; HCT 33.6 % (36.0-46.0); HGB 11.3 g/dL (11.2-15.7); Immature Grans % 0.6; Lymphocytes % 10.6; MCH 29.7 pg (27.0-33.0); MCHC 33.6 % (32.0-36.0); MCV 88 fL (80-95); MPV 9.5 fL (8.0-11.0); Monocytes % 3.6; Neutrophils % 83.8; Platelet Count 360 10^3/uL (130-400); RDW 13.2 % (11.7-14.6); RDW-SD 42.9 fL; WBC 15.17 10^3/uL (4.4-10.8)
[2023-10-08 10:55] LABS: Absolute Basophil Count 0.05 10^3/uL (0.0-0.2); Absolute Eosinophil Count 0.17 10^3/uL (0.0-0.7); Absolute Neutrophil Count 12.71 10^3/uL (1.2-6.7)
[2023-10-08 10:59] VITALS: BP 175/89; PULSE 90
[2023-10-08] MEDS: Labetalol 100 MG/20 ML VIAL 20 MG IVP (10:59)
[2023-10-08 11:09] LABS: ALT 25 U/L (14-59); AST 19 U/L (15-37); Albumin 2.8 g/dL (3.4-5.0); Alkaline Phosphatase 67 U/L (46-116); BUN 6 mg/dL (7-18); Bilirubin, Total 0.2 mg/dL (0.2-1.0); CREATININE 0.6 mg/dL (0.55-1.02); Calcium 8.4 mg/dL (8.5-10.1); Chloride 102 mmol/L (98-107); Estimated GFR 119.23 (mL/min/1.73m2); Glucose 118 mg/dL (74-106); Magnesium 1.7 mg/dL (1.8-2.4); Potassium 3.8 mmol/L (3.5-5.1); Sodium 135 mmol/L (136-145); Total Protein 7.4 g/dL (6.4-8.2)
[2023-10-08] MEDS: Labetalol 100 MG TAB PO (11:36)
[2023-10-08 12:51] LABS: Bilirubin Negative (Negative); Blood Negative (Negative); Clarity Clear (Clear); Glucose Negative (Negative); Ketones 15 mg/dL (Negative); Leukocyte Esterase Negative (Negative); Nitrite Negative (Negative); Specific Gravity 1.015 (1.005-1.025); pH 7.5 (5-8)
[2023-10-08 12:59] LABS: COMMENT (LAB VIEW ONLY) 79.76 mg/dL; PROTEIN 26.6 mg/dL; Prot/Crea Ur Ratio 0.33
[2023-10-08] MEDS: Metoclopramide 10 MG/2 ML VIAL 20 MG IVP (13:12)
[2023-10-08] MEDS: Normal Saline 250 ML IV (14:17)
[2023-10-08] MEDS: Acetaminophen 500 MG TAB 1000 MG PO (14:18)
== END 2023-10-08 14:34 | disposition home or self-care (01) ==
PROVIDERS: Emergency Provider Emergency Medicine; PCP Nurse Practitioner Family
DX: O21.2 Late vomiting of pregnancy (principal); O10.012 Pre-existing essential hypertension complicating pregnancy, second trimester; O99.332 Smoking (tobacco) complicating pregnancy, second trimester; F17.210 Nicotine dependence, cigarettes, uncomplicated; Z3A.24 24 weeks gestation of pregnancy
CPT/HCPCS: 36415; 80053; 96361; 96374; 96375; 96376; 99283; 81003; 82565; 83735; 84156; 85025; J1920; J2765

== ENCOUNTER 2023-10-12 04:04 | Outpatient (CLI) | payer MEDICAID, SELFPAY ==
[2023-10-12 12:07] LABS: HGB 10.5 g/dL (11.2-15.7); MCH 29.6 pg (27.0-33.0); MCHC 32.8 % (32.0-36.0); MCV 90 fL (80-95); MPV 9.6 fL (8.0-11.0); Platelet Count 202 10^3/uL (130-400); RBC 3.55 10^6/uL (3.93-5.22); RDW 13.3 % (11.7-14.6); RDW-SD 43.7 fL
[2023-10-12 12:09] LABS: Glucose,1 Hr (Glucola) 163 mg/dL (80-140)
[2023-10-12 12:15] LABS: ALT 27 U/L (14-59); AST 21 U/L (15-37); Albumin 2.7 g/dL (3.4-5.0); Alkaline Phosphatase 67 U/L (46-116); Anion Gap 8.6 mmol/L (3-11); BUN 4 mg/dL (7-18); Bilirubin, Total 0.2 mg/dL (0.2-1.0); CO2 24.4 mmol/L (21.0-32.0); CREATININE 0.6 mg/dL (0.55-1.02); Calcium 8.8 mg/dL (8.5-10.1); Chloride 102 mmol/L (98-107); Estimated GFR 119.23 (mL/min/1.73m2); Glucose 162 mg/dL (74-106); Potassium 3.7 mmol/L (3.5-5.1); Sodium 135 mmol/L (136-145); Total Protein 6.7 g/dL (6.4-8.2)
== END 2023-10-12 04:05 | disposition home or self-care (01) ==
LOC: LBO 04:04
PROVIDERS: Obstetrics & Gynecology Gynecology; PCP Nurse Practitioner Family; Visit Provider Obstetrics & Gynecology
DX: O09.292 Supervision of pregnancy with other poor reproductive or obstetric history, second trimester (principal); R76.8 Other specified abnormal immunological findings in serum; Z34.92 Encounter for supervision of normal pregnancy, unspecified, second trimester
CPT/HCPCS: 36415; 80053; 82950; 85027

== ENCOUNTER → 2023-10-20 01:24 | Outpatient (CLI) | payer MEDICAID, SELFPAY ==
--- NOTE | 2023-10-20 08:00 | DI.US_ITS ---
Exam(s) US OB YUSUF WEIGHT EXAM: US OB YUSUF WEIGHT CLINICAL HISTORY: growth and YUSUF,O09.299,O09.529. TECHNIQUE: Transabdominal obstetrical ultrasound performed. COMPARISON: US US OB F/U FACIAL/LVOT/RVOT from 09/15/2023 FINDINGS: Number of fetuses: 1 position: BREECH Placental location: There is a grade 1 posterior placenta. No evidence of previa. BIOMETRIC DATA: BPD: 7.28cm, 29weeks 1day HC: 27.55cm, 30weeks 1day AC: 25.89cm, 30weeks FL: 5.01cm, 27weeks EFW: 1,317.32g, 3lb 0.43oz, 9.1% Composite Age: 29weeks 1day [place]: 01/04/2024 Heart Rate: 139bpm Amniotic fluid index: 18.48cm. Visually, amount of fluid is within normal limits. UMBILICAL DOPPLER: PI PROXIMAL: 0.85 MID: 0.68 DISTAL: 0.8 RI PROXIMAL: 0.58 MID: 0.5 DISTAL: 0.56 S/D PROXIMAL: 2.4 MID: 2.0 DISTAL: 2.3 IMPRESSION: 1. Single live intrauterine gestation as above. 2. Estimated weight is 1317gms. This is the 9th percentile. 3. Amniotic fluid index is 18.5 cm. Visually within normal limits. DATA REPOSITORY:
== END ==
PROVIDERS: PCP Nurse Practitioner Family; Visit Provider Advanced Practice Midwife
DX: F11.20 Opioid dependence, uncomplicated (principal); O09.293 Supervision of pregnancy with other poor reproductive or obstetric history, third trimester; O09.523 Supervision of elderly multigravida, third trimester; Q27.0 Congenital absence and hypoplasia of umbilical artery
CPT/HCPCS: 76816

== ENCOUNTER 2023-10-20 10:51 | Emergency (ER) | payer MEDICAID, SELFPAY ==
[2023-10-20] VITALS (23 sets, daily range): BP systolic 134–149; BP diastolic 83–99; PULSE 71–78; RESP 11–28; TEMP 36.4; O2SAT 94–98
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
[2023-10-20 11:43] LABS: Bilirubin Negative (Negative); Blood Negative (Negative); Clarity Clear (Clear); Glucose Negative (Negative); Ketones Negative (Negative); Leukocyte Esterase Negative (Negative); Nitrite Negative (Negative); Urobilinogen 0.2 mg/dL (Up to 0.2); pH 7.5 (5-8)
[2023-10-20] MEDS: Labetalol 100 MG TAB PO (11:50)
== END 2023-10-20 12:03 | disposition home or self-care (01) ==
PROVIDERS: Emergency Provider Registered Nurse Emergency; PCP Nurse Practitioner Family
DX: R68.84 Jaw pain (principal); K04.7 Periapical abscess without sinus; Z34.92 Encounter for supervision of normal pregnancy, unspecified, second trimester
CPT/HCPCS: 64400; 81003

== ENCOUNTER 2023-10-20 11:56 | Outpatient (CLI) | payer MEDICAID, SELFPAY ==
[2023-10-20 12:06] VITALS: BP 131/75; PULSE 74; TEMP 36.8
[2023-10-20 12:36] VITALS: BP 131/75; PULSE 74
--- NOTE | 2023-10-20 17:08 | W.OBNST ---
Date of service: 10/20/23 Time of Service: 12:00 NST Evaluation Reason for NST Reasons for Nonstress Test: GESTATIONAL HYPERTENSION Gestational Age Gestational Age in Weeks and Days: 28 Weeks and 3Days Test and Monitor Explained Test/Monitor Explained: Test Explained, Monitor Explained and Patient Verbalized Understanding Vital Signs Blood Pressure: 131/75 Pulse: 74 Temperature: 98.2 F NST Information Date on Monitor: 10/20/23 Time on Monitor: 12:07 Date off Monitor: 10/20/23 Time off Monitor: 13:05 Total Time on Monitor: 58 NST Interventions: PO Hydration NST Evaluation Patient States Movement: Present FHR Baseline: 135 Variability: Moderate 6-25 bpm Accelerations: 10x10 Decelerations: None NST Results: Reactive Note Ultrasound Done: N/A (done in DI). NST Note Note: See record NST Reviewed and Verified by: Sarahi Quiles
[2023-10-20 17:09] VITALS: BP 131/75; PULSE 74; TEMP 36.8
== END 2023-10-20 15:03 | disposition home or self-care (01) ==
LOC: BCD 11:57 → OBS 12:05
PROVIDERS: PCP Nurse Practitioner Family; Visit Provider Obstetrics & Gynecology
DX: O24.410 Gestational diabetes mellitus in pregnancy, diet controlled (principal); Z3A.28 28 weeks gestation of pregnancy
CPT/HCPCS: 59025

== ENCOUNTER 2023-10-24 08:56 | Emergency (ER) | payer MEDICAID, SELFPAY ==
[2023-10-24 08:59] VITALS: BP 159/88; PULSE 103; RESP 17; TEMP 36.3; O2SAT 98
[2023-10-24 09:18] VITALS: BP 152/83; PULSE 83; RESP 20; TEMP 36.4; O2SAT 98
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
[2023-10-24 09:52] VITALS: BP 134/81; PULSE 87; RESP 16; TEMP 36.5; O2SAT 97
== END 2023-10-24 09:54 | disposition home or self-care (01) ==
PROVIDERS: Emergency Provider Physician Assistant; PCP Nurse Practitioner Family
DX: O99.612 Diseases of the digestive system complicating pregnancy, second trimester (principal); K08.89 Other specified disorders of teeth and supporting structures; O99.332 Smoking (tobacco) complicating pregnancy, second trimester; F17.210 Nicotine dependence, cigarettes, uncomplicated; Z3A.24 24 weeks gestation of pregnancy
CPT/HCPCS: 64400; 99283

== ENCOUNTER 2023-10-24 18:51 | Emergency (ER) | payer MEDICAID, SELFPAY ==
[2023-10-24 18:55] VITALS: BP 163/92; PULSE 126; RESP 22; TEMP 36.5; O2SAT 98
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
[2023-10-24 19:54] VITALS: BP 123/79; PULSE 115; RESP 16; O2SAT 95
[2023-10-24 20:41] LABS: Lactate 0.6 mmol/L (0.6-1.4)
[2023-10-24 20:47] LABS: Abs Immature Grans 0.09 10^3/uL (0.0-0.06); Absolute Basophil Count 0.07 10^3/uL (0.0-0.2); Absolute Eosinophil Count 0.05 10^3/uL (0.0-0.7); Absolute Lymphocyte Count 1.01 10^3/uL (1.2-3.4); Absolute Monocyte Count 0.94 10^3/uL (0.1-0.8); Absolute Neutrophil Count 14.09 10^3/uL (1.2-6.7); Basophils % 0.4; Eosinophils % 0.3; HCT 32.4 % (36.0-46.0); Immature Grans % 0.6; Lymphocytes % 6.2; MCH 30.3 pg (27.0-33.0); MCV 89 fL (80-95); MPV 9.8 fL (8.0-11.0); Monocytes % 5.8; Neutrophils % 86.7; Platelet Count 305 10^3/uL (130-400); RBC 3.63 10^6/uL (3.93-5.22); RDW 13.4 % (11.7-14.6); RDW-SD 44.4 fL; WBC 16.25 10^3/uL (4.4-10.8)
[2023-10-24 20:49] LABS: ESR 37 mm/hr (0-20)
[2023-10-24 20:56] LABS: Magnesium 1.7 mg/dL (1.8-2.4)
[2023-10-24 21:05] LABS: ALT 33 U/L (14-59); AST 18 U/L (15-37); Albumin 2.6 g/dL (3.4-5.0); Alkaline Phosphatase 85 U/L (46-116); Anion Gap 10.4 mmol/L (3-11); BUN 6 mg/dL (7-18); Bilirubin, Total 0.4 mg/dL (0.2-1.0); C-Reactive Protein 4.51 mg/dL (<or=0.5); CO2 23.6 mmol/L (21.0-32.0); CREATININE 0.5 mg/dL (0.55-1.02); Calcium 8.4 mg/dL (8.5-10.1); Chloride 100 mmol/L (98-107); Estimated GFR 124.58 (mL/min/1.73m2); Glucose 78 mg/dL (74-106); Sodium 134 mmol/L (136-145)
[2023-10-24 21:19] LABS: Procalcitonin < 0.1 ng/mL
[2023-10-24] MEDS: Ondansetron 4 MG/2 ML VIAL IVP (21:21)
[2023-10-24 21:33] LABS: Bilirubin Negative (Negative); Blood Negative (Negative); Clarity Clear (Clear); Glucose Negative (Negative); Ketones >=160 mg/dL (Negative); Leukocyte Esterase Negative (Negative); Nitrite Negative (Negative); Urobilinogen 0.2 mg/dL (Up to 0.2); pH 7.5 (5-8)
[2023-10-24 21:45] VITALS: BP 157/81; PULSE 110; RESP 18; O2SAT 98
== END 2023-10-24 21:48 | disposition home or self-care (01) ==
PROVIDERS: Emergency Provider Physician Assistant; PCP Nurse Practitioner Family
DX: O99.613 Diseases of the digestive system complicating pregnancy, third trimester (principal); K08.89 Other specified disorders of teeth and supporting structures; K02.9 Dental caries, unspecified; O99.323 Drug use complicating pregnancy, third trimester; F11.10 Opioid abuse, uncomplicated; O99.333 Smoking (tobacco) complicating pregnancy, third trimester; F17.210 Nicotine dependence, cigarettes, uncomplicated; Z3A.29 29 weeks gestation of pregnancy
CPT/HCPCS: 36415; 80053; 84145; 85652; 87040; 96374; 96375; 99283; 81003; 83605; 83735; 85025; 86140; J0131; J2405

== ENCOUNTER 2023-10-27 06:06 | Outpatient (CLI) | payer MEDICAID, SELFPAY ==
[2023-10-27] VITALS (7 sets, daily range): BP systolic 101–145; BP diastolic 64–92; PULSE 92–108; RESP 18; TEMP 36.6
--- NOTE | 2023-10-27 07:38 | W.ANESVAS ---
Midline Placement Date Performed: 10/27/23 Procedure Time: 07:25 Requesting Provider: Dawn Swenson Procedure Location: Obstetrics Sedation Given (Indicate Dose Given): No Sedation given Patient Mental Status: Awake Sterility: Hand Hygiene, Surgical Cap, Surgical Mask, Sterile Gloves, Sterile Drape/Sheet and Chlorhexidine Laterality: Right Insertion Site: Basilic Midline Device: PowerGlide Pro 20G Catheter Length: 10 cm Midline Procedure Procedure: 1% Lidocaine to skin and subcutaneous tissue with 25g needle Dressing: Tegaderm Applied and Statlock Applied Blood Return: Present Flushes: Easily Ultrasound: Sterile probe cover and gel used Ultrasound Image Saved?: Yes Number of Attempts (See previous attempts in note section): 1 Procedure Tolerated: No Complications Procedure Outcome: Successful Procedure Comment:: Asked for US guided IV by Leela. Large basilic noted, midline placed without difficulty. Performed By: Rafael Licea
[2023-10-27 07:50] LABS: HCT 34.4 % (36.0-46.0); HGB 11.4 g/dL (11.2-15.7); MCH 29.5 pg (27.0-33.0); MCHC 33.1 % (32.0-36.0); MCV 89 fL (80-95); MPV 9.4 fL (8.0-11.0); Platelet Count 343 10^3/uL (130-400); RBC 3.86 10^6/uL (3.93-5.22); RDW 13.4 % (11.7-14.6); RDW-SD 44.3 fL
--- NOTE | 2023-10-27 08:07 | W.OBNST ---
Date of service: 10/27/23 Time of Service: 08:07 NST Evaluation Reason for NST Reasons for Nonstress Test: GESTATIONAL HYPERTENSION, SUBSTANCE ABUSE IN MAT and OTHER, SEE COMMENT (maternal discomfort) Gestational Age Gestational Age in Weeks and Days: 28 Weeks and 3Days Test and Monitor Explained Test/Monitor Explained: Test Explained, Monitor Explained and Patient Verbalized Understanding Vital Signs Blood Pressure: 145/82 Pulse: 96 NST Information NST Interventions: PO Hydration NST Evaluation Patient States Movement: Present Variability: Moderate 6-25 bpm (Pt moving in bed, ) Accelerations: 15x15 Note Ultrasound Done: N/A. NST Note Note: Pt called to report onset of bilateral leg and arm pain. Pt reports nausea and emesis of after taking AM dose of Methadone. DBP at home 102 per pt report. I advised her to present to . Exam on arrival: thrashing about in bed upper and lower extremities w/o erythema or edema. No knots or cords. Abd gravid, no focal uterine tenderness, no CVA tenderness. FIRER ELECTRIC LOCOMOTIVE placed R arm IV under u/s guidance. Labs drawn and IV hydration initiated. Plan to redose methadone, administer Hydroxyzine IM and place SCDs to assist with LE discomfort. Plan is to evaluate labs, and assess discomfort in one hour. Pt is agreeable to the plan. NST Reviewed and Verified by: Dawn Swenson
[2023-10-27] MEDS: Omeprazole 20 MG CAPCR PO (08:18)
[2023-10-27 08:23] LABS: ALT 32 U/L (14-59); AST 18 U/L (15-37); Albumin 2.7 g/dL (3.4-5.0); Alkaline Phosphatase 137 U/L (46-116); Anion Gap 14.4 mmol/L (3-11); BUN 14 mg/dL (7-18); Bilirubin, Total 0.4 mg/dL (0.2-1.0); CO2 19.6 mmol/L (21.0-32.0); CREATININE 0.7 mg/dL (0.55-1.02); Calcium 8.7 mg/dL (8.5-10.1); Chloride 101 mmol/L (98-107); Estimated GFR 114.88 (mL/min/1.73m2); Glucose 106 mg/dL (74-106); Sodium 135 mmol/L (136-145); TSH (W/Ref FT4) 2.21 uIU/mL (0.36-3.74); Total Protein 7.5 g/dL (6.4-8.2)
[2023-10-27] MEDS: Labetalol 100 MG TAB 200 MG PO (08:35)
[2023-10-27] MEDS: FLUoxetine 20 MG CAP 40 MG PO (08:37)
[2023-10-27] MEDS: hydrOXYzine 25 MG/ML VIAL IM (08:38)
[2023-10-27] MEDS: Prenatal Multivitamin w/CA,FE TAB 1 TAB PO (08:39)
[2023-10-27] MEDS: Aspirin E.C. 81 MG TABEC PO (08:48)
[2023-10-27] MEDS: Penicillin V POTASSIUM 500 MG TAB PO (08:48)
[2023-10-27] MEDS: Methadone Liquid 10 MG/ML 45 MG PO (08:49)
[2023-10-27 08:53] LABS: *AMPHETAMINES SCREEN URINE Negative (Negative); *BARBITURATES SCREEN URINE Negative (Negative); *BENZODIAZEPINES SCREEN URINE Negative (Negative); Cannabinoids THC Positive (Negative); Cocaine Screen,Urine Negative (Negative); METHADONE URINE SCREEN Positive (Negative); OPIATES URINE SCREEN Negative (Negative)
[2023-10-27 09:01] LABS: Tricyclic Antidepressants Negative (Negative)
--- NOTE | 2023-10-27 10:52 | PDOC.NST_ITS ---
Date of service: 10/27/23 Time of Service: 10:52 NST Evaluation Reason for NST Reasons for Nonstress Test: CHRONIC HYPERTENSION Gestational Age Gestational Age in Weeks and Days: 29 Weeks and 3Days Test and Monitor Explained Test/Monitor Explained: Test Explained, Monitor Explained and Patient Verbalized Understanding Vital Signs Blood Pressure: 145/82 Pulse: 96 NST Information Date on Monitor: 10/27/23 Time on Monitor: 06:15 NST Interventions: IV Fluids NST Evaluation Patient States Movement: Present FHR Baseline: 150 Variability: Moderate 6-25 bpm Accelerations: 10x10 Decelerations: None NST Results: Reactive Note Ultrasound Done: N/A. NST Note Note: Patient presented to the center with nausea, vomiting, and extremity discomfort. Her blood pressure is also mildly elevated at that point. She received hydroxyzine, IV hydration, and has normal laboratory studies. Her blood pressure has improved, and she has a reactive, category 1 nonstress test. She is scheduled for follow-up both with [facility] and with . Smart teams are involved. Supportive care was given. NST Reviewed and Verified by: Savanah Perez
[2023-10-27] MEDS: Levothyroxine 75 MCG TAB PO (10:56)
== END 2023-10-27 11:00 | disposition home or self-care (01) ==
LOC: BCD 06:07 → OBS 06:28
PROVIDERS: PCP Nurse Practitioner Family; Visit Provider Obstetrics & Gynecology Gynecology
DX: O13.3 Gestational [pregnancy-induced] hypertension without significant proteinuria, third trimester (principal); Z3A.29 29 weeks gestation of pregnancy
CPT/HCPCS: 76942; 80053; 80307; 85027; 96360; 96361; 59025; 84443; G0378; J3410

== ENCOUNTER → 2023-11-07 03:44 | Outpatient (CLI) | payer MEDICAID, SELFPAY ==
--- NOTE | 2023-11-07 07:15 | DI.US_ITS ---
Exam(s) US OB BIOPHYSICAL PROFILE EXAM: US OB BIOPHYSICAL PROFILE CLINICAL HISTORY: Surveillance,2 vessel umb cord,hypertension. TECHNIQUE: Transabdominal obstetrical ultrasound was performed. COMPARISON: US POCUS EXAM from 10/27/2023 FINDINGS: FINDINGS: Again noted is a single viable intrauterine gestation with cardiac activity identified at 144 B PM. Fetus is present in cephalic position with spine pointing anteriorly. Placenta is posteri or grade 1, with no evidence of placenta previa. BREATHING MOVEMENTS: 0 GROSS MOVEMENTS: 2 TONE: 2 AMNIOTIC FLUID VOLUME: 2 YUSUF = 13.65 cm FHR= 144 bpm IMPRESSION: Biophysical profile is 6/8,. Two points for duct at for lack of breathing movements. DATA REPOSITORY:
== END ==
PROVIDERS: PCP Nurse Practitioner Family; Visit Provider Obstetrics & Gynecology
DX: Q27.0 Congenital absence and hypoplasia of umbilical artery (principal); O09.293 Supervision of pregnancy with other poor reproductive or obstetric history, third trimester; Z3A.31 31 weeks gestation of pregnancy
CPT/HCPCS: 76815; 76819

== ENCOUNTER 2023-11-08 14:38 | Outpatient (CLI) | payer MEDICAID, SELFPAY ==
[2023-11-08 16:18] VITALS: BP 115/80; PULSE 75; TEMP 36.4
--- NOTE | 2023-12-27 12:52 | PDOC.NST_ITS ---
Date of service: 11/08/23 Time of Service: 17:00 NST Evaluation Reason for NST Reasons for Nonstress Test: CHRONIC HYPERTENSION Gestational Age Gestational Age in Weeks and Days: 35 Weeks and 3Days Test and Monitor Explained Test/Monitor Explained: Test Explained, Monitor Explained and Patient Verbalized Understanding Vital Signs Blood Pressure: 115/80 Pulse: 75 Temperature: 97.5 F Urine Results Urine Protein: Negative Urine Ketones: Negative Urine Glucose: Negative Urine Blood: Negative NST Information Date on Monitor: 11/08/23 Time on Monitor: 15:04 Date off Monitor: 11/08/23 Time off Monitor: 16:06 Total Time on Monitor: 62 NST Interventions: Notify Provider Contraction Frequency: 0 NST Evaluation Patient States Movement: Present FHR Baseline: 130 Variability: Minimal <6 bpm Accelerations: None Decelerations: None NST Results: Non-Reactive Note Ultrasound Done: Biophysical Profile Reason for Biophysical Profile: Non Reacti ve NST. Provider that performed the study: Dawn Swenson Is this a repeat study?: No Amniotic Fluid: 2 Largest Vertical Pocket: 3.35 Muscle Tone: 2 Body Movements: 2 Breathing Movements: 2 NST Results: Non-Reactive Total Biophysical Profile Score: 8 Coding for Biophysical Profile w/NST: Completed Exam. NST Note Note: Pt reports some abdominal discomfort in mornings but not as debilitating as when she has required in ED. Pt's NST not reactive. No decels. POC u/s performed by myself. Pt will continue with twice weekly surveillance. NST Reviewed and Verified by: Dawn Swenson
[2023-12-27 12:53] VITALS: BP 115/80; PULSE 75; TEMP 36.4
== END 2023-11-08 16:21 ==
LOC: BCD 14:40 → OBS 15:09
PROVIDERS: PCP Nurse Practitioner Family; Visit Provider Obstetrics & Gynecology Gynecology
DX: O13.3 Gestational [pregnancy-induced] hypertension without significant proteinuria, third trimester (principal); Z3A.36 36 weeks gestation of pregnancy
CPT/HCPCS: 59025

== ENCOUNTER → 2023-11-14 01:57 | Outpatient (CLI) | payer MEDICAID, SELFPAY ==
--- NOTE | 2023-11-14 06:30 | DI.US_ITS ---
Exam(s) US OB BIOPHYSICAL PROFILE EXAM: US OB BIOPHYSICAL PROFILE CLINICAL HISTORY: 2 vessel umb cord,hypertension,h/o preeclampsia,Q27.0,O09.899 TECHNIQUE: Ultrasound biophysical profile performed using standard protocol. COMPARISON: US US OB YUSUF WEIGHT from 10/20/2023 US POCUS EXAM from 10/27/2023 US US OB BIOPHYSICAL PROFILE from 11/07/2023 US POCUS EXAM from 11/08/2023 FINDINGS: ULTRASOUND BIOPHYSICAL PROFILE: Number of fetuses: One. position: Vertex, spine anterior. heart rate: 123 bpm. Placental grade: 2 Placental location: Posterior/fundal. gestational age: 33+5 weeks Amniotic fluid index: 16.6 cm. Single deepest pocket is 4.7 cm. BIOPHYSICAL PROFILE SCORE: breathin out of 2 movement: 2 out of 2 tone: 2 out of 2 Amniotic fluid: 2 out of 2 Overall biophysical profile score: 6 out of 8. IMPRESSION: Biophysical profile 6 out of 8. DATA REPOSITORY:
== END ==
PROVIDERS: PCP Nurse Practitioner Family; Visit Provider Obstetrics & Gynecology
DX: O09.293 Supervision of pregnancy with other poor reproductive or obstetric history, third trimester (principal); O09.893 Supervision of other high risk pregnancies, third trimester; O16.3 Unspecified maternal hypertension, third trimester; Z3A.33 33 weeks gestation of pregnancy
CPT/HCPCS: 76815; 76819

== ENCOUNTER 2023-11-14 06:53 | Outpatient (CLI) | payer MEDICAID, SELFPAY ==
[2023-11-14 10:17] VITALS: BP 127/81; PULSE 75; TEMP 36.6
[2023-11-14 10:23] VITALS: BP 127/81; PULSE 75
--- NOTE | 2023-11-14 16:51 | W.OBNST ---
Date of service: 11/14/23 Time of Service: 10:15 NST Evaluation Reason for NST Reasons for Nonstress Test: GESTATIONAL HYPERTENSION Gestational Age Gestational Age in Weeks and Days: 32 Weeks and 0Days Test and Monitor Explained Test/Monitor Explained: Test Explained, Monitor Explained and Patient Verbalized Understanding Vital Signs Blood Pressure: 127/81 Pulse: 75 Temperature: 97.9 F Urine Results Urine Protein: Negative Urine Ketones: Negative Urine Glucose: Negative Urine Blood: Negative NST Information Date on Monitor: 11/14/23 Time on Monitor: 10:12 Date off Monitor: 11/14/23 Time off Monitor: 10:53 Total Time on Monitor: 41 NST Interventions: PO Hydration Contraction Frequency: 0 NST Evaluation Patient States Movement: Present FHR Baseline: 135 Variability: Moderate 6-25 bpm Accelerations: 15x15 Decelerations: Variable NST Results: Reactive Note Ultrasound Done: N/A. NST Note Note: Pt doing well. Reactive NST. Pt said on Monday she was unable to get her labetalol script refilled due to the current issues with medicaid insurance/pharmacy. She will try calling again today and let us know if she still can't obtain the refill. NST Reviewed and Verified by: Sarahi Quiles
[2023-11-14 16:52] VITALS: BP 127/81; PULSE 75; TEMP 36.6
== END 2023-11-14 11:33 ==
LOC: BCD 06:57 → OBS 10:09
PROVIDERS: PCP Nurse Practitioner Family; Visit Provider Obstetrics & Gynecology
DX: O13.3 Gestational [pregnancy-induced] hypertension without significant proteinuria, third trimester (principal); Z3A.32 32 weeks gestation of pregnancy
CPT/HCPCS: 59025

== ENCOUNTER → 2023-11-21 00:58 | Outpatient (CLI) | payer MEDICAID, SELFPAY ==
--- NOTE | 2023-11-21 07:15 | DI.US_ITS ---
Exam(s) US OB BIOPHYSICAL PROFILE EXAM: US OB BIOPHYSICAL PROFILE CLINICAL HISTORY: 2 VESSEL CORD,HYPERTENSION,SURVEILLANCE TECHNIQUE: Ultrasound biophysical profile performed using standard protocol. COMPARISON: US US OB BIOPHYSICAL PROFILE from 11/14/2023 FINDINGS: ULTRASOUND BIOPHYSICAL PROFILE: Number of fetuses: One. position: Cephalic. heart rate: 129 bpm. Placental grade: There is a grade 2 posterior placenta. Placental location: Posterior. No evidence of previa. Amniotic fluid index: 8.15 cm. Single deepest pocket is 4.12 cm. BIOPHYSICAL PROFILE SCORE: breathin out of 2 movement: 2 out of 2 tone: 2 out of 2 Amniotic fluid: 2 out of 2 Overall biophysical profile score: Out of 8. IMPRESSION: Single live intrauterine gestation. Biophysical profile 8 out of 8. DATA REPOSITORY:
== END ==
PROVIDERS: PCP Nurse Practitioner Family; Visit Provider Obstetrics & Gynecology
DX: Q27.0 Congenital absence and hypoplasia of umbilical artery (principal); O09.293 Supervision of pregnancy with other poor reproductive or obstetric history, third trimester
CPT/HCPCS: 76815; 76819

== ENCOUNTER 2023-11-24 07:38 | Outpatient (CLI) | payer MEDICAID, SELFPAY ==
[2023-11-24 13:42] VITALS: BP 124/93; PULSE 86; TEMP 36.4
[2023-11-24 13:48] VITALS: BP 124/93; PULSE 86
[2023-11-24 14:11] VITALS: BP 105/61; PULSE 83
[2023-11-24 14:12] VITALS: BP 105/61
--- NOTE | 2023-11-24 14:46 | W.OBNST ---
Date of service: 11/24/23 Time of Service: 13:45 NST Evaluation Reason for NST Reasons for Nonstress Test: GESTATIONAL HYPERTENSION Gestational Age Gestational Age in Weeks and Days: 35 Weeks and 1Days Test and Monitor Explained Test/Monitor Explained: Test Explained, Monitor Explained and Patient Verbalized Understanding Vital Signs Blood Pressure: 124/93 Pulse: 86 Temperature: 97.5 F Urine Results Urine Protein: Positive Urine Ketones: Negative Urine Glucose: Negative Urine Blood: Negative NST Information Date on Monitor: 11/24/23 Time on Monitor: 13:39 Date off Monitor: 11/24/23 Time off Monitor: 14:27 Total Time on Monitor: 48 NST Interventions: PO Hydration NST Evaluation Patient States Movement: Present FHR Baseline: 130 Variability: Moderate 6-25 bpm Accelerations: 15x15 Decelerations: None NST Results: Reactive Note Ultrasound Done: N/A. NST Note Note: See record NST Reviewed and Verified by: Sarahi Quiles
[2023-11-24 14:48] VITALS: BP 124/93; PULSE 86; TEMP 36.4
== END 2023-11-24 15:20 | disposition home or self-care (01) ==
LOC: BCD 07:42 → OBS 13:35
PROVIDERS: PCP Nurse Practitioner Family; Visit Provider Obstetrics & Gynecology
DX: O13.3 Gestational [pregnancy-induced] hypertension without significant proteinuria, third trimester (principal); Z3A.35 35 weeks gestation of pregnancy
CPT/HCPCS: 59025

== ENCOUNTER → 2023-11-28 01:02 | Outpatient (CLI) | payer MEDICAID, SELFPAY ==
--- NOTE | 2023-11-28 06:30 | DI.US_ITS ---
Exam(s) US OB BIOPHYSICAL PROFILE EXAM: US OB BIOPHYSICAL PROFILE CLINICAL HISTORY: surveillance,2 vessel umb cord,hypertension,Q27.0,O16.9. TECHNIQUE: Transabdominal obstetrical ultrasound was performed. COMPARISON: US US OB BIOPHYSICAL PROFILE from 11/21/2023 FINDINGS: FINDINGS: BREATHING MOVEMENTS: 2 GROSS MOVEMENTS: 2 TONE: 2 AMNIOTIC FLUID VOLUME: 2 YUSUF = 8.47 cm. Single deepest pocket is 4.06 cm FHR= 144 bpm Placenta = posterior grade 2 with no evidence of placenta previa. IMPRESSION: Biophysical profile is 8/8, with no points deducted. DATA REPOSITORY:
== END ==
PROVIDERS: PCP Nurse Practitioner Family; Visit Provider Obstetrics & Gynecology
DX: Q27.0 Congenital absence and hypoplasia of umbilical artery (principal); O09.293 Supervision of pregnancy with other poor reproductive or obstetric history, third trimester; Z3A.35 35 weeks gestation of pregnancy
CPT/HCPCS: 76815; 76819

== ENCOUNTER 2023-12-01 08:52 | Outpatient (CLI) | payer MEDICAID, SELFPAY ==
[2023-12-01 13:50] VITALS: BP 125/72; PULSE 72; TEMP 36.5
[2023-12-01 14:13] VITALS: BP 125/72; PULSE 72
--- NOTE | 2023-12-05 09:32 | W.OBNST ---
Date of service: 12/05/23 Time of Service: 09:32 NST Evaluation Reason for NST Reasons for Nonstress Test: GESTATIONAL HYPERTENSION Gestational Age Gestational Age in Weeks and Days: 36 Weeks and 3Days Test and Monitor Explained Test/Monitor Explained: Test Explained and Monitor Explained Vital Signs Blood Pressure: 125/72 Pulse: 72 Temperature: 97.7 F NST Information Date on Monitor: 12/01/23 Time on Monitor: 13:50 Date off Monitor: 12/01/23 Time off Monitor: 15:08 Total Time on Monitor: 78 NST Interventions: PO Hydration NST Evaluation Patient States Movement: Present FHR Baseline: 135 Variability: Moderate 6-25 bpm Accelerations: 10x10 Decelerations: None NST Results: Reactive Note Ultrasound Done: N/A. NST Note Note: NST reactive. No recent episodes of N/V. Pt has BPP weekly along with NST on BC. She will g/u as scheduled. NST Reviewed and Verified by: Dawn Swenson
[2023-12-05 09:34] VITALS: BP 125/72; PULSE 72; TEMP 36.5
== END 2023-12-01 15:10 | disposition home or self-care (01) ==
LOC: BCD 08:56 → OBS 13:44
PROVIDERS: PCP Nurse Practitioner Family; Visit Provider Obstetrics & Gynecology Gynecology
DX: O13.3 Gestational [pregnancy-induced] hypertension without significant proteinuria, third trimester (principal); Z3A.34 34 weeks gestation of pregnancy
CPT/HCPCS: 59025

== ENCOUNTER 2023-12-03 10:05 | Outpatient (CLI) | payer MEDICAID, SELFPAY ==
[2023-12-03] VITALS (39 sets, daily range): BP systolic 80–190; BP diastolic 50–125; PULSE 66–88; RESP 10–22; TEMP 36.4–36.8; O2SAT 96–100
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
[2023-12-03 10:45] LABS: Abs Immature Grans 0.09 10^3/uL (0.0-0.06); Absolute Basophil Count 0.06 10^3/uL (0.0-0.2); Absolute Eosinophil Count 0.34 10^3/uL (0.0-0.7); Absolute Lymphocyte Count 2.25 10^3/uL (1.2-3.4); Absolute Monocyte Count 0.72 10^3/uL (0.1-0.8); Basophils % 0.5; Eosinophils % 2.7; HGB 11.4 g/dL (11.2-15.7); Immature Grans % 0.7; Lymphocytes % 17.7; MCH 29.5 pg (27.0-33.0); MCHC 32.6 % (32.0-36.0); MCV 91 fL (80-95); MPV 11.3 fL (8.0-11.0); Monocytes % 5.7; Neutrophils % 72.7; Platelet Count 243 10^3/uL (130-400); RBC 3.86 10^6/uL (3.93-5.22); RDW 13.2 % (11.7-14.6); RDW-SD 42.4 fL; WBC 12.71 10^3/uL (4.4-10.8)
--- NOTE | 2023-12-03 10:47 | NUR.NOTE ---
Nursing Note: PRACTICE ARCHITECT gave verbal order for 10mg instead of 20mg of labetalol.
[2023-12-03 10:52] LABS: Absolute Neutrophil Count 9.24 10^3/uL (1.2-6.7)
[2023-12-03] MEDS: Metoclopramide 10 MG/2 ML VIAL IVP (10:54)
[2023-12-03 11:03] LABS: ALT 20 U/L (14-59); AST 26 U/L (15-37); Albumin 2.2 g/dL (3.4-5.0); Alkaline Phosphatase 182 U/L (46-116); Anion Gap 9.5 mmol/L (3-11); BUN 10 mg/dL (7-18); Bilirubin, Total 0.2 mg/dL (0.2-1.0); CO2 24.5 mmol/L (21.0-32.0); CREATININE 0.6 mg/dL (0.55-1.02); Calcium 8.5 mg/dL (8.5-10.1); Chloride 104 mmol/L (98-107); Estimated GFR 119.23 (mL/min/1.73m2); Glucose 90 mg/dL (74-106); LDH 257 U/L (81-234); Potassium 4.2 mmol/L (3.5-5.1); Sodium 138 mmol/L (136-145); Total Protein 6.6 g/dL (6.4-8.2); Uric Acid 4.6 mg/dL (2.6-6.0)
[2023-12-03] MEDS: Labetalol 100 MG/20 ML VIAL 20 MG IVP (11:05)
--- NOTE | 2023-12-03 11:06 | NUR.NOTE ---
Nursing Note:other 10mg of labetalol given per [employer] order. 20mg given total
[2023-12-03 11:11] LABS: ETHANOL BLOOD < 3.0 mg/dL (<10)
[2023-12-03] MEDS: Ondansetron O.D.T. 4 MG TABEF PO (11:17)
[2023-12-03 11:29] LABS: Bilirubin Negative (Negative); Blood Negative (Negative); Clarity Cloudy (Clear); Glucose Negative (Negative); Ketones Negative (Negative); Leukocyte Esterase Negative (Negative); Nitrite Negative (Negative); Specific Gravity 1.025 (1.005-1.025); Urobilinogen 0.2 mg/dL (Up to 0.2); pH 7.5 (5-8)
[2023-12-04 10:39] VITALS: BP 110/64; PULSE 86
--- NOTE | 2023-12-05 09:35 | W.OBNST ---
Date of service: 12/05/23 Time of Service: 09:35 NST Evaluation Reason for NST Reasons for Nonstress Test: OTHER, SEE COMMENT Reason for NST Other: Adm from ER for N/V Gestational Age Gestational Age in Weeks and Days: 36 Weeks and 3Days Test and Monitor Explained Test/Monitor Explained: Test Explained, Monitor Explained and Patient Verbalized Understanding Vital Signs Blood Pressure: 133/75 Pulse: 71 Temperature: 98.2 F NST Information Date on Monitor: 12/03/23 Time on Monitor: 12:35 Date off Monitor: 12/03/23 Time off Monitor: 13:53 Total Time on Monitor: 78 NST Interventions: PO Hydration NST Evaluation Patient States Movement: Present Variability: Moderate 6-25 bpm Accelerations: 15x15 Decelerations: None NST Results: Reactive Note Ultrasound Done: N/A. NST Note Note: Pt presented to ED with n/v and elevated BP after vomiting her PO Labetalol doses. She was given antiemetics, IV Labetalol and had stabilized by the time she was eval on BC for BP check and NST. NST reactive. Pt stable and will continue with weekly BPP and weekly NST's on BC. NST Reviewed and Verified by: Dawn Swenson
[2023-12-05 09:38] VITALS: BP 133/75; PULSE 71; TEMP 36.8
--- NOTE | 2023-12-05 10:33 | W.OBNST ---
Date of service: 12/03/23 Time of Service: 10:35 NST Evaluation Reason for NST Reasons for Nonstress Test: OTHER, SEE COMMENT Reason for NST Other: Adm from ER for N/V Gestational Age Gestational Age in Weeks and Days: 36 Weeks and 3Days Test and Monitor Explained Test/Monitor Explained: Test Explained, Monitor Explained and Patient Verbalized Understanding Vital Signs Blood Pressure: 133/75 Pulse: 71 Temperature: 98.2 F NST Information Date on Monitor: 12/03/23 Time on Monitor: 12:35 Date off Monitor: 12/03/23 Time off Monitor: 13:53 Total Time on Monitor: 78 NST Interventions: PO Hydration NST Evaluation Patient States Movement: Present Variability: Moderate 6-25 bpm Accelerations: 15x15 Decelerations: None NST Results: Reactive Note Ultrasound Done: N/A. NST Note Note: NST reactive. NST Reviewed and Verified by: Dawn Swenson
[2023-12-05 10:35] VITALS: BP 133/75; PULSE 71; TEMP 36.8
== END 2023-12-03 13:54 | disposition home or self-care (01) ==
LOC: ER 11:46 → BCD 12:33 → OBS 12:39
PROVIDERS: Emergency Provider Nurse Practitioner Family; PCP Nurse Practitioner Family; Visit Provider Obstetrics & Gynecology Gynecology
DX: O13.3 Gestational [pregnancy-induced] hypertension without significant proteinuria, third trimester (principal); Z3A.36 36 weeks gestation of pregnancy
CPT/HCPCS: 80053; 59025; 80320; 81003; 83615; 84550; 85025; J1920; J2765

== ENCOUNTER → 2023-12-05 02:10 | Outpatient (CLI) | payer MEDICAID, SELFPAY ==
--- NOTE | 2023-12-05 09:26 | DI.US_ITS ---
Exam(s) US OB BIOPHYSICAL PROFILE EXAM: US OB BIOPHYSICAL PROFILE CLINICAL HISTORY: F/U 2 VESSEL CORD,HYPERTENSION,q27.0,o16.9. TECHNIQUE: Transabdominal obstetrical ultrasound was performed. COMPARISON: US US OB BIOPHYSICAL PROFILE from 11/28/2023 FINDINGS: FINDINGS: BREATHING MOVEMENTS: 2 GROSS MOVEMENTS: 2 TONE: 2 AMNIOTIC FLUID VOLUME: 2 YUSUF = 14.0 cm FHR= 136 bpm Placenta is fundal grade 2 without evidence of placenta previa. IMPRESSION: Biophysical profile is 8/8, with no points deducted. DATA REPOSITORY:
== END ==
PROVIDERS: PCP Nurse Practitioner Family; Visit Provider Obstetrics & Gynecology
DX: Q27.0 Congenital absence and hypoplasia of umbilical artery (principal); O16.9 Unspecified maternal hypertension, unspecified trimester; O09.299 Supervision of pregnancy with other poor reproductive or obstetric history, unspecified trimester; O09.899 Supervision of other high risk pregnancies, unspecified trimester
CPT/HCPCS: 76815; 76819

== ENCOUNTER 2023-12-08 07:34 | Outpatient (CLI) | payer MEDICAID, SELFPAY ==
[2023-12-08] VITALS (14 sets, daily range): BP systolic 115–168; BP diastolic 76–101; PULSE 75–94; RESP 16; TEMP 36.7
[2023-12-08] MEDS: Acetaminophen 325 MG TAB 650 MG PO (14:50)
[2023-12-08 15:22] LABS: COMMENT (LAB VIEW ONLY) 94.07 mg/dL; PROTEIN 23.2 mg/dL; Prot/Crea Ur Ratio 0.24
[2023-12-08] MEDS: Fluconazole 150 MG TAB PO (17:54)
--- NOTE | 2023-12-08 18:26 | W.OBNST ---
Date of service: 12/08/23 Time of Service: 16:00 NST Evaluation Reason for NST Reasons for Nonstress Test: GESTATIONAL HYPERTENSION Gestational Age Gestational Age in Weeks and Days: 35 Weeks and 3Days Test and Monitor Explained Test/Monitor Explained: Test Explained Vital Signs Blood Pressure: 136/97 Pulse: 90 Temperature: 98.1 F Urine Results Urine Protein: Positive Urine Ketones: Negative Urine Glucose: Negative Urine Blood: Positive NST Information Date on Monitor: 12/08/23 Time on Monitor: 13:40 NST Interventions: PO Hydration, Reposition Patient and Notify Provider NST Evaluation Patient States Movement: Present FHR Baseline: 140 Variability: Moderate 6-25 bpm Accelerations: 15x15 Decelerations: Variable NST Results: Reactive Note Ultrasound Done: N/A. NST Note Note: Pt seen for routine NST but also c/o a headache and some visual changes - these are c/w experiences she's had previously in the when she's not feeling well. She was nauseous and vomiting yesterday but not today, though hasn't eaten much. Maybe some slight increase in discharge, no bleeding or regular ctxs but a bit of cramping. Good movement. Exam: cx 1/50/-4/posterior. Vag path + yeast and BV. No swelling, 2+DTRs b/l Abd: gravid, nontender. Labs: Protein creatinine ration normal. Plan: Pt treated for yeast and started metronidazole treatment. No e/o labor. BPs initially elevated but then normalized with rest. Will continue labetalol. Feeling better after some rest. Has appt at [facility] next . Encouraged to call with any other concerns over the weekend. NST Reviewed and Verified by: Sarahi Quiles
[2023-12-08] MEDS: metroNIDAZOLE 500 MG TAB PO (19:07)
== END 2023-12-08 18:55 | disposition home or self-care (01) ==
LOC: BCD 07:35 → OBS 14:12
PROVIDERS: PCP Nurse Practitioner Family; Visit Provider Obstetrics & Gynecology
DX: O13.3 Gestational [pregnancy-induced] hypertension without significant proteinuria, third trimester (principal); Z3A.35 35 weeks gestation of pregnancy
CPT/HCPCS: 99211; 82565; 84156; 87480; 87510; 87660

== ENCOUNTER 2024-05-23 03:41 | Outpatient (CLI) | payer MEDICAID, SELFPAY ==
[2024-05-23 18:01] LABS: ALT 26 U/L (14-59); AST 20 U/L (15-37); Alkaline Phosphatase 29 U/L (46-116); Anion Gap 9.1 mmol/L (3-11); BUN 13 mg/dL (7-18); Bilirubin, Total 0.12 mg/dL (0.2-1.0); CO2 25.9 mmol/L (21.0-32.0); CREATININE 0.9 mg/dL (0.55-1.02); Calcium 9.2 mg/dL (8.5-10.1); Chloride 101 mmol/L (98-107); Estimated GFR 84.44 (mL/min/1.73m2); Glucose 71 mg/dL (74-106); Sodium 136 mmol/L (136-145); TSH (W/Ref FT4) 5.43 uIU/mL (0.36-3.74); Total Protein 7.6 g/dL (6.4-8.2)
[2024-05-23 18:17] LABS: FREE T4 0.71 ng/dL (0.76-1.46)
[2024-05-24 19:57] LABS: Hepatitis A Antibody IgM Negative (Negative); Hepatitis B Core Antibody Negative (Negative); Hepatitis B surface Ag Negative (Negative); Hepatitis C Ab w Rflx HCV PCR Reactive (Negative)
== END 2024-05-23 03:42 | disposition home or self-care (01) ==
LOC: LBO 03:41
PROVIDERS: PCP Nurse Practitioner Family; Visit Provider Nurse Practitioner Family
DX: E03.9 Hypothyroidism, unspecified (principal); B18.2 Chronic viral hepatitis C
CPT/HCPCS: 36415; 80053; 86704; 86706; 86709; 86803; 87340; 87389; 87522; 84439; 84443; 87521

== ENCOUNTER 2024-05-24 01:29 | Outpatient (CLI) | payer MEDICAID, SELFPAY ==
[2024-05-27 08:40] LABS: HBs Antibody, Quant >1000.0 mIU/mL (See Note); Hepatitis B Surface Ab Positive (See Note)
[2024-05-27 09:32] LABS: HIV-1/2 Ag & Ab Screen Negative (Negative)
[2024-05-29 14:33] LABS: HCV RNA Qualitative Undetected
[2024-05-29 15:27] LABS: HCV Genotype Undetected (Undetected)
== END 2024-05-24 01:30 | disposition home or self-care (01) ==
LOC: LBO 01:29
PROVIDERS: PCP Nurse Practitioner Family; Visit Provider Nurse Practitioner Family
DX: E03.9 Hypothyroidism, unspecified (principal); B18.2 Chronic viral hepatitis C
CPT/HCPCS: 36415; 80053; 86706; 86803; 87389; 87522; 87521

== ENCOUNTER 2024-08-19 13:12 | Emergency (ER) | payer MEDICAID, SELFPAY ==
[2024-08-19] VITALS (7 sets, daily range): BP systolic 152–195; BP diastolic 84–110; PULSE 48–85; RESP 18; TEMP 36.5; O2SAT 95–98
--- NOTE | 2024-08-19 13:45 | RT.EKG_ITS ---
APPROVED REPORT Exam: Resting ECG Reason for Exam: weakness Patient Location: E HR:60 bpm ECG Measurements Heart Rate 60 AXIS PA 144 P 40 QRSd 70 QRS 67 QT 473 T 50 QTc 472 Conclusion Unknown rhythm, irregular rate...V-rate 50- 83, variation>10%
[2024-08-19] MEDS: Ondansetron 4 MG/2 ML VIAL IVP (13:59)
[2024-08-19] MEDS: MORPHine 4 MG/ML SYR IVP (13:59)
[2024-08-19] MEDS: Normal Saline 500 ML IV (14:04)
[2024-08-19 14:05] LABS: Abs Immature Grans 0.03 10^3/uL (0.0-0.06); Absolute Basophil Count 0.03 10^3/uL (0.0-0.2); Absolute Lymphocyte Count 0.95 10^3/uL (1.2-3.4); Absolute Monocyte Count 0.16 10^3/uL (0.1-0.8); Absolute Neutrophil Count 8.91 10^3/uL (1.2-6.7); Basophils % 0.3 %; HCT 39.5 % (36.0-46.0); HGB 12.9 g/dL (11.2-15.7); Immature Grans % 0.3 %; Lymphocytes % 9.4 %; MCH 28.8 pg (27.0-33.0); MCHC 32.7 % (32.0-36.0); MCV 88 fL (80-95); MPV 9.4 fL (8.0-11.0); Monocytes % 1.6 %; Neutrophils % 88.4 %; Platelet Count 361 10^3/uL (130-400); RBC 4.48 10^6/uL (3.93-5.22); RDW 12.2 % (11.7-14.6); RDW-SD 40.2 fL; WBC 10.08 10^3/uL (4.4-10.8)
[2024-08-19 14:52] LABS: Bilirubin Negative (Negative); Blood Negative (Negative); Clarity Clear (Clear); Glucose Negative (Negative); Ketones 80 mg/dL (Negative); Leukocyte Esterase Negative (Negative); Nitrite Negative (Negative); Specific Gravity 1.015 (1.005-1.025); pH >= 9.0 (5-8)
[2024-08-19] MEDS: Omnipaque 350 MG/ML 100 ML BTL IJ (14:56)
[2024-08-19] MEDS: Normal Saline - Diluent 50 ML VIAL IJ (14:58)
--- NOTE | 2024-08-19 15:00 | DI.CT_ITS ---
Exam(s) CT ABDOMEN PELVIS W EXAM: CT ABDOMEN PELVIS W CLINICAL HISTORY: abdominal pain, diffuse, vomiting TECHNIQUE: Imaging Protocol: Axial computed tomography images with coronal and sagittal reformatted images were created and reviewed. CONTRAST MATERIAL: Intravenous: Omnipaque 350 Contrast volume:75 mL Oral: No COMPARISON: CT CT ABDOMEN PELVIS W from 05/19/2022 FINDINGS: ABDOMEN: Lung Bases: Bilateral lower lobe infiltrates, left greater than right. The findings are suspicious f or an infectious process. Liver: Normal density. No suspicious hepatic mass. Portal, Superior Mesenteric, and Splenic Veins: Unremarkable. Gallbladder and Biliary Tract: No radiodense calculus or dilation. Pancreas: Normal density, no abnormal calcifications or inflammatory process. Spleen: Normal. Adrenals: No masses seen. Kidneys: Normal size, contour and axis. No radiodense stones or obstructive uropathy. No masses seen. Abdominal Aorta: Abdominal portion non-dilated. Bowel: No obstruction or bowel wall thickening. No evidence of appendicitis. Peritoneal Cavity: No ascites, collection or mesenteric inflammatory response. No free air. Lymph Nodes: Within normal limits. Bones: Within normal limits for the patient's age. Soft Tissues: Unremarkable. PELVIS: Bladder: Symmetric distention, no gross wall thickening. Reproductive Organs: Unremarkable as visualized. Lymph Nodes: Within normal limits. Bones: Within normal limits for the patient's age. IMPRESSION: 1. No acute abdominal or pelvic process. 2. Bilateral basilar infiltrates, left greater than right suspicious for an inflammatory/infectious p rocess. Please correlate clinically. RADIATION DOSE DELIVERED: 301.34mGy.cm Total DLP DATA REPOSITORY: All CT scans at this facility are submitted to the National Radiology Data Registry (NRDR) Dose Index Registry (DIR) with the [employer] (A[employer]). RADIATION OPTIMIZATION: All CT scans at this facility use at least one of these dose optimization te chniques: automated exposure control; mA and/or kV adjustment per patient size (includes targeted exa ms where dose is matched to clinical indication); or iterative reconstruction.
[2024-08-19 15:09] LABS: Troponin I < 4 ng/L (<or=51)
[2024-08-19 15:13] LABS: Bacteria Few HPF (Negative); C & S Indicated? No/Sq. Contamination; Casts Negative LPF (Negative); Crystals Negative HPF (Negative); Epithelial Cells Many HPF (Negative); Mucus Trace (Negative); RBC 0-2 HPF (0-2); WBC 0-2 HPF (0-5)
--- NOTE | 2024-08-19 15:38 | W.ED.FU ---
Follow Up Plan: Handoff report received from ana Mauro. Please see her note for full HPI, ROS, PE, and workup. Gabi is a 38-year-old female who presented to the emergency department today for evaluation of nausea/vomiting and generalized abdominal pain since this morning. She did miss today's dose of methadone because she vomited after taking it. She was given IV Zofran and 500cc NS, had a reassuring CT abdomen/pelvis performed, no acute findings abdominal findings, though bilateral basilar infiltrates were noted, L>R. CBC, troponin, CMP, UA reassuring. Gabi does report that she feels like she is having some shortness of breath, a nebulizer treatment was provided. Lung sounds were clear on examination, vital signs stable, no hypoxia. First dose of antibiotics given here in emergency department. She was able to take p.o. angelica rudi and popsicle after receiving antiemetics. She is being sent home with antiemetics as well. Reviewed diagnosis of pneumonia and discharge instructions with patient, including symptomatic management, importance of taking antibiotics, decreasing vape use, and red flags indicating need for return to emergency care. She voices agreement with plan of care.
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
--- NOTE | 2024-08-19 15:57 | DI.RAD_ITS ---
Exam(s) XR CHEST 2V PA LATERAL EXAM: XR CHEST 2V PA LATERAL CLINICAL HISTORY: infiltrates on ct abd TECHNIQUE: 2D digital imaging was performed. Two views. COMPARISON: CR,XR XR PORTABLE CHEST AP from 11/03/[address] ABDOMEN PELVIS W from 08/19/2024 FINDINGS: HEART: Normal size. Aorta: Not dilated. PULMONARY VASCULATURE: Normal. MEDIASTINUM: Unremarkable. LUNGS: Mild patchy infiltrates noted in both lower lobes. No focal consolidation. PLEURAL SPACE: No pleural effusion or pneumothorax. BONE:Unremarkable for age. SOFT TISSUES: Unremarkable. IMPRESSION: Bilateral lower lobe pneumonitis. DATA REPOSITORY: RADIATION DOSE DELIVERED:
[2024-08-19] MEDS: Ketorolac 15 MG/ML VIAL 7.5 MG IVP (16:11)
[2024-08-19 16:50] LABS: ALT 32 U/L (14-59); AST 24 U/L (15-37); Albumin 3.2 g/dL (3.4-5.0); Alkaline Phosphatase 32 U/L (46-116); Anion Gap 11.8 mmol/L (3-11); BUN 11 mg/dL (7-18); CO2 22.2 mmol/L (21.0-32.0); CREATININE 0.7 mg/dL (0.55-1.02); Calcium 8.8 mg/dL (8.5-10.1); Chloride 109 mmol/L (98-107); Estimated GFR 114.16 (mL/min/1.73m2); Glucose 138 mg/dL (74-106); Magnesium 1.8 mg/dL (1.8-2.4); Potassium 4.4 mmol/L (3.5-5.1); Sodium 143 mmol/L (136-145); Total Protein 7.6 g/dL (6.4-8.2)
[2024-08-19 16:54] LABS: Bilirubin, Total < 0.10 mg/dL (0.2-1.0)
[2024-08-19] MEDS: Albuterol 2.5 MG/3 ML INH SOLN VIAL UPD (17:34)
[2024-08-19] MEDS: Cefuroxime 500 MG TAB PO (17:47)
[2024-08-19] MEDS: Doxycycline Hyclate 100 MG CAP PO (17:48)
== END 2024-08-19 18:09 | disposition home or self-care (01) ==
PROVIDERS: Physician Assistant; Emergency Provider Nurse Practitioner Family; PCP Nurse Practitioner Family
DX: J18.9 Pneumonia, unspecified organism (principal); R11.2 Nausea with vomiting, unspecified; R19.7 Diarrhea, unspecified; F11.20 Opioid dependence, uncomplicated
CPT/HCPCS: 80053; 81025; 83690; 93005; 94640; 96361; 96374; 96375; 99285; 71046; 74177; 81003; 81015; 83735; 84484; 84703; 85025; 93010; J1885; J2270; J2405; J3490; J7613

== ENCOUNTER 2024-10-30 08:03 | Emergency (ER) | payer MEDICAID, SELFPAY ==
[2024-10-30] VITALS (31 sets, daily range): BP systolic 167–191; BP diastolic 88–125; PULSE 42–87; RESP 11–41; TEMP 36.9; O2SAT 95–100
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
[2024-10-30 08:36] LABS: Abs Immature Grans 0.03 10^3/uL (0.0-0.06); Absolute Eosinophil Count 0.01 10^3/uL (0.0-0.7); Absolute Lymphocyte Count 1.18 10^3/uL (1.2-3.4); Absolute Monocyte Count 0.15 10^3/uL (0.1-0.8); Absolute Neutrophil Count 12.35 10^3/uL (1.2-6.7); Basophils % 0.1 %; Eosinophils % 0.1 %; HCT 38.5 % (36.0-46.0); Immature Grans % 0.2 %; Lymphocytes % 8.6 %; MCH 29.7 pg (27.0-33.0); MCHC 33.8 % (32.0-36.0); MCV 88 fL (80-95); MPV 9.4 fL (8.0-11.0); Monocytes % 1.1 %; Neutrophils % 89.9 %; Platelet Count 352 10^3/uL (130-400); RBC 4.37 10^6/uL (3.93-5.22); RDW 13.2 % (11.7-14.6); RDW-SD 42.9 fL; WBC 13.74 10^3/uL (4.4-10.8)
[2024-10-30] MEDS: Ketorolac 15 MG/ML VIAL 10 MG IVP (08:37)
[2024-10-30] MEDS: Ondansetron 4 MG/2 ML VIAL IVP (08:37)
[2024-10-30] MEDS: Lactated Ringers 1,000 ML 1000 ML IV (08:37)
[2024-10-30 08:38] LABS: Absolute Basophil Count 0.01 10^3/uL (0.0-0.2)
[2024-10-30 08:52] LABS: ALT 33 U/L (14-59); AST 18 U/L (15-37); Albumin 4.4 g/dL (3.4-5.0); Alkaline Phosphatase 28 U/L (46-116); Anion Gap 8.7 mmol/L (3-11); BUN 9 mg/dL (7-18); Bilirubin, Total 0.53 mg/dL (0.2-1.0); CO2 26.3 mmol/L (21.0-32.0); CREATININE 0.9 mg/dL (0.55-1.02); Calcium 9.5 mg/dL (8.5-10.1); Chloride 105 mmol/L (98-107); Estimated GFR 84.44 (mL/min/1.73m2); Glucose 132 mg/dL (74-106); Lipase 20 U/L (<78); Sodium 140 mmol/L (136-145); Total Protein 8.2 g/dL (6.4-8.2)
[2024-10-30] MEDS: Droperidol 5 MG/2 ML VIAL 2.5 MG IVP (09:24)
[2024-10-30] MEDS: Ondansetron O.D.T. 4 MG TABEF, 3 TABS/BTL PO (11:31)
== END 2024-10-30 11:29 | disposition home or self-care (01) ==
PROVIDERS: Emergency Provider Emergency Medicine; PCP Nurse Practitioner Family
DX: R11.10 Vomiting, unspecified (principal); F17.210 Nicotine dependence, cigarettes, uncomplicated; F11.20 Opioid dependence, uncomplicated
CPT/HCPCS: 36415; 80053; 83690; 96361; 96374; 96375; 99284; 85025; 99283; J1790; J1885; J2405

== ENCOUNTER 2025-01-20 11:36 | Emergency (ER) | payer MEDICAID, SELFPAY ==
[2025-01-20] VITALS (36 sets, daily range): BP systolic 150–198; BP diastolic 88–128; PULSE 68–94; RESP 10–24; O2SAT 94–99
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
[2025-01-20 12:19] LABS: Lactate 0.9 mmol/L (<or=2.0)
[2025-01-20 12:20] LABS: Abs Immature Grans 0.01 10^3/uL (0.0-0.06); Absolute Basophil Count 0.05 10^3/uL (0.0-0.2); Absolute Lymphocyte Count 1.05 10^3/uL (1.2-3.4); Absolute Monocyte Count 0.53 10^3/uL (0.1-0.8); Absolute Neutrophil Count 4.99 10^3/uL (1.2-6.7); Basophils % 0.7 %; Eosinophils % 1.5 %; HGB 14.5 g/dL (11.2-15.7); Immature Grans % 0.1 %; Lymphocytes % 15.6 %; MCH 29.4 pg (27.0-33.0); MCHC 32.2 % (32.0-36.0); MCV 91 fL (80-95); MPV 9.6 fL (8.0-11.0); Monocytes % 7.9 %; Neutrophils % 74.2 %; Platelet Count 307 10^3/uL (130-400); RBC 4.93 10^6/uL (3.93-5.22); RDW 12.8 % (11.7-14.6); RDW-SD 42.9 fL; WBC 6.73 10^3/uL (4.4-10.8)
[2025-01-20 12:55] LABS: ALT 32 U/L (14-59); AST 26 U/L (15-37); Albumin 3.9 g/dL (3.4-5.0); Alkaline Phosphatase 34 U/L (46-116); Anion Gap 6.6 mmol/L (3-11); BUN 10 mg/dL (7-18); Bilirubin, Total 0.2 mg/dL (0.2-1.0); CO2 28.4 mmol/L (21.0-32.0); CREATININE 0.7 mg/dL (0.55-1.02); Calcium 9.5 mg/dL (8.5-10.1); Chloride 106 mmol/L (98-107); Estimated GFR 113.46 (mL/min/1.73m2); Glucose 144 mg/dL (74-106); Lipase 35 U/L (<78); Potassium 3.7 mmol/L (3.5-5.1); Sodium 141 mmol/L (136-145); TSH (W/Ref FT4) 1.38 uIU/mL (0.36-3.74); Total Protein 7.9 g/dL (6.4-8.2); Troponin I 7 ng/L (<or=51)
[2025-01-20 13:00] LABS: ETHANOL BLOOD < 3.0 mg/dL (<10)
[2025-01-20 13:11] LABS: Bilirubin Negative (Negative); Blood Trace-intact (Negative); Clarity Clear (Clear); Glucose Negative (Negative); Ketones Trace mg/dL (Negative); Leukocyte Esterase Negative (Negative); Nitrite Negative (Negative); Urobilinogen 0.2 mg/dL (Up to 0.2); pH 6.5 (5-8)
[2025-01-20 13:20] LABS: *AMPHETAMINES SCREEN URINE Negative (Negative); *BARBITURATES SCREEN URINE Negative (Negative); *BENZODIAZEPINES SCREEN URINE Negative (Negative); Cannabinoids THC Positive (Negative); Cocaine Screen,Urine Positive (Negative); METHADONE URINE SCREEN Positive (Negative); OPIATES URINE SCREEN Negative (Negative)
[2025-01-20 13:21] LABS: Tricyclic Antidepressants Negative (Negative)
[2025-01-20 13:22] LABS: RBC 0-2 HPF (0-2); WBC Negative HPF (0-5)
[2025-01-20 13:23] LABS: Bacteria Negative HPF (Negative); C & S Indicated? No; Casts 0-2 Hyaline LPF (Negative); Crystals Negative HPF (Negative); Epithelial Cells Rare HPF (Negative); Mucus Negative (Negative)
[2025-01-20] MEDS: Omnipaque 350 MG/ML 100 ML BTL IJ (13:34)
[2025-01-20] MEDS: Normal Saline - Diluent 50 ML VIAL IJ (13:34)
[2025-01-20 15:23] LABS: Kit/Specimen SENT
== END 2025-01-20 15:18 ==
PROVIDERS: Emergency Provider Physician Assistant; PCP Nurse Practitioner Family
DX: M54.2 Cervicalgia (principal); M25.512 Pain in left shoulder; E03.9 Hypothyroidism, unspecified; F17.210 Nicotine dependence, cigarettes, uncomplicated; F17.290 Nicotine dependence, other tobacco product, uncomplicated; V43.53XA Car driver injured in collision with pick-up truck in traffic accident, initial encounter
CPT/HCPCS: 36415; 74177; 80053; 80307; 81025; 83690; 99284; 70450; 70486; 71260; 72125; 80320; 81003; 81015; 83605; 83735; 84443; 84484; 85025; J3490

== ENCOUNTER 2025-01-23 19:49 | Emergency (ER) | payer MEDICAID, SELFPAY ==
[2025-01-23] VITALS (9 sets, daily range): BP systolic 120–149; BP diastolic 76–118; PULSE 70–89; RESP 8–18; TEMP 36.8; O2SAT 94–99
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
[2025-01-23] MEDS: ACETAMINOPHEN 500 MG/50 ML BAG 200 MG IVPB (20:27)
[2025-01-23 20:37] LABS: Abs Immature Grans 0.04 10^3/uL (0.0-0.06); Absolute Basophil Count 0.07 10^3/uL (0.0-0.2); Absolute Eosinophil Count 0.12 10^3/uL (0.0-0.7); Absolute Lymphocyte Count 3.01 10^3/uL (1.2-3.4); Absolute Monocyte Count 0.86 10^3/uL (0.1-0.8); Absolute Neutrophil Count 10.49 10^3/uL (1.2-6.7); Basophils % 0.5 %; Eosinophils % 0.8 %; HCT 38.6 % (36.0-46.0); HGB 12.8 g/dL (11.2-15.7); Immature Grans % 0.3 %; Lymphocytes % 20.6 %; MCH 29.5 pg (27.0-33.0); MCHC 33.2 % (32.0-36.0); MCV 89 fL (80-95); Monocytes % 5.9 %; Neutrophils % 71.9 %; RBC 4.34 10^6/uL (3.93-5.22); RDW 12.5 % (11.7-14.6); RDW-SD 41.2 fL; WBC 14.59 10^3/uL (4.4-10.8)
[2025-01-23 20:47] LABS: Anion Gap 7.5 mmol/L (3-11); BUN 7 mg/dL (7-18); CO2 29.5 mmol/L (21.0-32.0); CREATININE 0.8 mg/dL (0.55-1.02); Calcium 9.1 mg/dL (8.5-10.1); Chloride 103 mmol/L (98-107); Estimated GFR 96.66 (mL/min/1.73m2); Glucose 103 mg/dL (74-106); Potassium 3.4 mmol/L (3.5-5.1); Sodium 140 mmol/L (136-145)
[2025-01-23] MEDS: Omnipaque 350 MG/ML 100 ML BTL IJ (20:47)
[2025-01-23] MEDS: Normal Saline - Diluent 50 ML VIAL IJ (20:49)
[2025-01-23 21:01] LABS: Platelet Count 306 10^3/uL (130-400)
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
[2025-01-23] MEDS: AMPICILLIN/SULBACTAM 1.5 GM in Normal Saline 50 ML IVPB (21:51)
[2025-01-23] MEDS: fentaNYL 100 MCG/2 ML VIAL 50 MCG IVP (22:04)
--- NOTE | 2025-01-24 08:48 | ED.PROG_ITS ---
Date of service: 01/24/25 Time of Service: 08:48 Medical Decision Making Patient transferred via medic to [facility] ED for ENT. Quality:SDOH Health Related Social Needs: No Data to Display Discharge Plan Disposition Patient Disposition: Transfer-Acute Inpatient Care Specific Acute Inpt Facility: [facility] Discharge Details Chief Complaint: GenMedical Clinical Impression: Submandibular abscess Primary Care Provider: MINNIE NICHOLS ED Provider: Manuel Rayo [facility] Meds and New Rx's Prescriptions: No Action omeprazole 20 mg capsule,delayed release(DR/EC) 20 mg PO DAILY lorazepam 0.5 mg tablet 0.5 mg PO QHS PRN fluoxetine 40 mg capsule 40 mg PO DAILY medroxyprogesterone [Depo-Provera] 150 mg/mL syringe 150 mg IM Q12W Qty: 1 6RF levothyroxine 50 mcg tablet 75 mcg PO DAILY trazodone 50 mg tablet 50 mg PO QHS PRN (Reason: sleep) Qty: 30 0RF methadone 10 mg/mL concentrate 25 mg PO DAILY albuterol sulfate 90 mcg/actuation HFA aerosol inhaler 2 puff INHALATION Q6H PRN Patient Comments: INHALE 1 TO 2 PUFFS BY MOUTH EVERY 4 TO 6 HOURS NEEDED budesonide-formoterol [Symbicort] 80-4.5 mcg/actuation HFA aerosol inhaler 1 puff INHALATION BID Patient Comments: INHALE 1 PUFF BY MOUTH TWO TIMES A DAY DIRECTED ondansetron 4 mg tablet,disintegrating 4 mg PO Q6H PRN (Reason: nausea and vomiting) Qty: 30 0RF Discharge Data Discharge Date/Time-TO BE ENTERED AT DEPARTURE: 01/23/25 22:48
== END 2025-01-23 22:48 | disposition short-term general hospital (02) ==
PROVIDERS: Emergency Provider Emergency Medicine; PCP Nurse Practitioner Family
DX: R22.0 Localized swelling, mass and lump, head (principal)
CPT/HCPCS: 00123; 70491; 80048; 96365; 96367; 96375; 99285; 85025; J0131; J0295; J3010; J3490